=== PATIENT | female | born 1965 | race Caucasian/White ===

== ENCOUNTER 2016-04-26 19:19 | Emergency (ER) | payer MEDICARE, BC ==
[2016-04-26 19:28] VITALS: BP 113/64; PULSE 61; RESP 18; TEMP 98
--- NOTE | 2016-04-26 20:04 | ED ---
Lower Extremity Injury HPI - General Chief Complaint: Extremity Injury, Lower Stated Complaint: Fall Ankle Time Seen by Provider: 04/26/16 19:59 Source: patient, RN notes reviewed Mode of arrival: ambulatory Limitations: no limitations - History of Present Illness Initial Comments: 50-year-old female presents to the emergency department with a chief complaint of left ankle pain. Patient states that she tripped and fell while walking the dog and she rolled her ankle. Patient states she also pain over the lateral aspect were still bearing weight. Worse the touch. Patient does have chronic nerve issues due to back problems in both feet but states she is feeling this pain and otherwise her sensation is her normal. Patient denies any head injury any lightheadedness or dizziness before the fall. Patient states that she is not currently having any other symptoms at this time.Patient denies any recent fever, chills, shortness of breath, chest pain, back pain, abdominal pain, nausea vomiting, numbness or tingling, dysuria or hematuria, constipation or diarrhea, headaches or visual changes, or any other current symptoms. - Related Data Home Medications Medication Instructions Recorded Confirmed Omeprazole [PriLOSEC] 20 mg PO AC-BRKFST 08/21/13 04/26/16 Meloxicam [Mobic] 7.5 mg PO DAILY 08/23/13 04/26/16 Citalopram Hydrobromide [CeleXA] 40 mg PO HS 05/08/15 04/26/16 Diazepam 10 mg PO TID PRN 05/08/15 04/26/16 Levothyroxine Sodium [Synthroid] 112 mcg PO DAILY 05/08/15 04/26/16 oxyCODONE-APAP 10-325MG [Percocet 1 tab PO TID PRN 05/08/15 04/26/16 10-325 mg] prednisoLONE ACETATE 1% OPHTH 1 drops RIGHT EYE BID 05/08/15 04/26/16 [Pred Forte 1%] Brimonidine Tartrate [Alphagan P 1 drops RIGHT EYE BID 04/26/16 04/26/16 0.1% Ophth Soln] Ergocalciferol (Vitamin D2) 50,000 unit PO TH 04/26/16 04/26/16 [Vitamin D2] Loratadine [Claritin] 10 mg PO DAILY 04/26/16 04/26/16 Nicotine 7Mg/24Hr Patch [Habitrol 1 patch TRANSDERM DAILY 04/26/16 04/26/16 7Mg/24Hr Patch] Verapamil HCl [Verapamil ER] 240 mg PO BID 04/26/16 04/26/16 Allergies Allergy/AdvReac Type Severity Reaction Status Date / Time clindamycin Allergy Rash/Hives Verified 04/26/16 19:53 venom-honey bee Allergy Anaphylaxis Verified 04/26/16 19:53 [bee venom (honey bee)] latex AdvReac Itching Verified 04/26/16 19:53 Review of Systems ROS Statement: Those systems with pertinent positive or pertinent negative responses have been documented in the HPI. ROS Other: All systems not noted in ROS Statement are negative. Past Medical History Past Medical History: GERD/Reflux, Hypertension, Thyroid Disorder Additional Past Medical History / Comment(s): MS diagnosed years ago in another states but now MRI showed no MS History of Any Multi-Drug Resistant Organisms: C-DIFF, None Reported Date of last positivie culture/infection: 2014 MDRO Source:: stool Past Surgical History: Orthopedic Surgery, Tonsillectomy Additional Past Surgical History / Comment(s): neck surgery, cyst removed from wrist, urethral blockage repair, laser eye surgery on right eye twice Past Psychological History: Depression, No Psychological Hx Reported Smoking Status: Never smoker Past Alcohol Use History: Rare Past Drug Use History: Marijuana General Exam - General Exam Comments Initial Comments: General: The patient is awake and alert, in no distress, and does not appear acutely ill. Neck: The neck is supple, there is no tenderness. Cardiovascular: There is a regular rate and rhythm. No murmur, rub or gallop is appreciated. Respiratory: Lungs are clear to auscultation, respirations are non-labored, breath sounds are equal. No wheezes, stridor, rales, or rhonchi. Musculoskeletal: Sensation intact with 2+ pulses. Left flexion me. Full range of motion of left knee and left ankle with swelling over the lateral malleolus. Patient does have tenderness patient over the lateral malleolus. No tenderness to palpation throughout the rest of the left foot. No tenderness to palpation throughout the left hip or maximal knee. Neurological: CN II-XII intact, There are no obvious motor or sensory deficits. Coordination appears grossly intact. Speech is normal. Skin: Skin is warm and dry and no rashes or lesions are noted. Psychiatric: Normal mood and affect. Limitations: no limitations Course Vital Signs 04/26/16 19:26 Temperature 98.0 F Pulse Rate 61 Respiratory 18 Rate Blood Pressure 113/64 O2 Sat by Pulse 97 Oximetry Procedures - Orthopedic Splinting/Casting Injury #1 Side: left Lower Extremity Injury Location: ankle Lower Extremity Immobilizer: posterior splint (short leg) Medical Decision Making - Medical Decision Making 50-year-old female presents to emergency room chief complaint of left ankle pain. This time patient will undergo an x-ray. at this time xray is reviewed. There is concern for acute on chronic avulsion fracture that is with the patient is tender more likely to be chronic however we will splint and have her follow-up with orthopedic for continued evaluation. At this time we discussed splint care we discussed ongoing currently discussed return. Follow-up. Patient states she understood all questions were answered. She'll be discharged. - Radiology Data Radiology results: image reviewed Interpreted by me: Interpreted by me: left ankle xray: 3 view, avulsion fracture left lateral malleolus concern for chronic vs acute, no dislocation, no bony lesions, no foreign bodies, no soft tissue damage. Waiting official radiology read. Disposition Clinical Impression: Closed left ankle fracture Disposition: HOME SELF-CARE Condition: Stable Instructions: Ankle Fracture (ED) Additional Instructions: Please use medication as discussed. Please follow up with family doctor if symptoms have not improved over the next two days. Please return to the emergency room if your symptoms increase or worsen or for any other concerns. Referrals: Valerio George MD [Primary Care Provider] - 1-2 days Tre Pineda MD [STAFF PHYSICIAN] - 1-2 days Time of Disposition: 20:17
--- NOTE | 2016-04-26 21:00 | XR ---
EXAMINATION TYPE: XR ankle complete LT DATE OF EXAM: 04/26/2016 8:11 PM COMPARISON: October 26, 2015 HISTORY: Lateral ankle pain is after fall TECHNIQUE: 3 views FINDINGS: There is a nonunited transverse linear lucency at the distal tip of the fibula, appearing s imilar to the prior study. There is prominent lateral soft tissue swelling on the present study, with out acute fracture evident. The mortise is intact. IMPRESSION: Soft tissue swelling laterally.
== END 2016-04-26 20:32 | disposition home or self-care (01) ==
LOC: EC 19:19
DX: S82.892A Other fracture of left lower leg, initial encounter for closed fracture (principal); W01.0XXA Fall on same level from slipping, tripping and stumbling without subsequent striking against object, initial encounter; Y93.K1 Activity, walking an animal; E07.9 Disorder of thyroid, unspecified; I10 Essential (primary) hypertension; K21.9 Gastro-esophageal reflux disease without esophagitis; Z79.899 Other long term (current) drug therapy; Z88.1 Allergy status to other antibiotic agents; Z91.040 Latex allergy status
CPT/HCPCS: 29515; 99284

== ENCOUNTER → 2016-06-18 | Outpatient (CLI) | payer BC, MEDICARE ==
[2016-06-18 12:30] LABS: Basophils # (A) 0.1 k/uL (0-0.2); Basophils % (A) 1 %; CH 31.8; CHCM 32.4; Eosinophils # (A) 0.3 k/uL (0-0.7); Eosinophils % (A) 6 %; HDW 2.23; HGB 11.6 gm/dL (11.4-16.0); Luc # (Auto) 0.15; Luc % (Auto) 3; Lymphocytes # (A) 1.2 k/uL (1.0-4.8); Lymphocytes % (A) 22 %; MCH 31.8 pg (25.0-35.0); MCHC 32.3 g/dL (31.0-37.0); MCV 98.5 fL (80.0-100.0); Mean Platelet Volume 7.4; Monocytes # (A) 0.3 k/uL (0-1.0); Monocytes % (A) 5 %; Neutrophils # (A) 3.7 k/uL (1.3-7.7); Neutrophils % (A) 64 %; RBC 3.65 m/uL (3.80-5.40); WBC 5.7 k/uL (3.8-10.6); WBC (Perox) 5.81
--- NOTE | 2016-06-18 12:33 | XR ---
EXAMINATION TYPE: XR chest 2V DATE OF EXAM: 06/18/2016 11:34 AM COMPARISON: 01/28/2016 HISTORY: 50 year-old female pre-op for lower back surgery TECHNIQUE: Frontal and lateral views FINDINGS: The cardiomediastinal silhouette, aorta, and pulmonary vasculature are within normal limits. Mild int erstitial prominence is unchanged. No consolidation or pleural effusion. Partially visualized ACDF flores rdware. IMPRESSION: Chronic changes without acute cardiopulmonary process.
[2016-06-18 12:52] LABS: Prothrombin Time 9.8 sec (9.0-12.0)
[2016-06-18 13:04] LABS: ALT 55 U/L (9-52); AST 75 U/L (14-36); Alkaline Phosphatase 162 U/L (38-126); Anion Gap 11 mmol/L; Blood Urea Nitrogen 18 mg/dL (7-17); Calcium 9.5 mg/dL (8.4-10.2); Carbon Dioxide 27 mmol/L (22-30); Chloride 106 mmol/L (98-107); Glucose 122 mg/dL (74-99); Non-African American GFR(MDRD) 58 (>60 ml/min/1.73 sqM); Sodium 144 mmol/L (137-145); Total Bilirubin 0.3 mg/dL (0.2-1.3); Total Protein 7.4 g/dL (6.3-8.2)
== END ==
LOC: RADXRMAIN 11:21
PROVIDERS: ATTEND Internal Medicine
DX: Z01.818 Encounter for other preprocedural examination (principal); M51.36 Other intervertebral disc degeneration, lumbar region; R91.8 Other nonspecific abnormal finding of lung field; J44.0 Chronic obstructive pulmonary disease with (acute) lower respiratory infection
CPT/HCPCS: 36415; 71020; 80053; 85025; 85610

== ENCOUNTER → 2016-07-21 | Outpatient (CLI) | payer MEDICARE, BC | LOC: LABWHC1 14:50 | PROVIDERS: ATTEND Neurological Surgery | DX: Z53.9 Procedure and treatment not carried out, unspecified reason (principal) ==

== ENCOUNTER → 2016-09-29 | Outpatient (CLI) | payer BC, MEDICARE ==
--- NOTE | 2016-09-29 11:27 | XR ---
EXAMINATION TYPE: XR chest 2V DATE OF EXAM: 09/29/2016 HISTORY: M51.36 Lumbar DDD. REFERENCE: Previous study dated 06/18/2016. FINDINGS: There has been a previous ACDF in the lower cervical spine. The lungs are clear. Pleural spaces are clear. Heart size is normal. IMPRESSION: NO ACUTE INTRATHORACIC ABNORMALITY.
== END | disposition home or self-care (01) ==
LOC: RADXRMAIN 10:47
PROVIDERS: ATTEND Neurological Surgery
DX: Z01.818 Encounter for other preprocedural examination (principal); M51.36 Other intervertebral disc degeneration, lumbar region
CPT/HCPCS: 71020; 93005

== ENCOUNTER → 2017-04-22 | Outpatient (CLI) | payer BC ==
--- NOTE | 2017-04-22 12:55 | CT ---
EXAMINATION TYPE: CT cervical spine wo con DATE OF EXAM: 04/22/2017 COMPARISON: MRI of the cervical spine dated 08/13/2015 HISTORY: cervical myelopathy CT DLP: 462.9 mGycm. Automated Exposure Control for Dose Reduction was Utilized. TECHNIQUE: CT scan of the cervical spine is obtained without contrast, axial images are obtained, sa gittal and coronal reformatted images are also reviewed. FINDINGS: There is grade 2 anterolisthesis of C6 on C7 with an acute kyphosis redemonstrated and endp late sclerosis. Anterior cervical fusion bridges the C5-T1 vertebral bodies. Surgical decompression w ith posterior element resection from C4 through approximately C6. Uncovertebral hypertrophy and facet arthropathy are seen throughout the cervical spine. C2-C3: No significant neural foraminal stenosis spinal or spinal canal stenosis despite uncovertebral hypertrophy and facet arthropathy. C3-C4: There is severe uncovertebral hypertrophy and facet arthropathy creating severe left neural fo raminal narrowing and to a lesser degree on the right creating moderate right neural foraminal narrow ing. No spinal canal stenosis as a posterior elements are absent. C4-C5: Similarly to C3-C4 there is severe left neural foraminal narrowing and moderate right neural f oraminal narrowing from uncovertebral hypertrophy and facet arthropathy. No spinal canal stenosis sec ondary to decompression and posterior element absence. C5-C6: Severe left and moderate right neural foraminal narrowing are present secondary to uncovertebr al hypertrophy and facet arthropathy. Surgical decompression of the posterior elements is present and therefore there is no spinal canal stenosis. C6-C7: Again the acute kyphosis in grade 2 anterolisthesis are seen widening the spinal canal and in anterior posterior dimension. Bilateral moderate neural foraminal narrowing are present as a result o f uncovertebral hypertrophy and facet arthropathy. Incidentally noted are bilateral scattered areas of peribronchial cuffing. Minimal left apical parase ptal emphysematous changes are also noted. IMPRESSION: 1. Postsurgical changes of the cervical spine with redemonstration of an acute kyphosis at C6-C7 with grade 2 anterolisthesis. 2. Multilevel extensive facet arthropathy and uncovertebral hypertrophy creating multilevel severe le ft and moderate right neural foraminal stenosis as described above. No significant spinal canal steno sis secondary to the decompression and removal of the posterior elements. 3. Scattered areas of peribronchial cuffing within the lung apices and paraseptal emphysematous lu es. Peribronchial cuffing could relate to small airway reactive disease of infectious or inflammatory etiology.
--- NOTE | 2017-04-22 14:07 | CT ---
EXAMINATION TYPE: CT lumbar spine wo con DATE OF EXAM: 04/22/2017 12:25 PM COMPARISON: 08/27/2013 and prior MR dated 08/13/2015. HISTORY: stenosis CT DLP: 1347.8 mGycm Automated exposure control for dose reduction was used. Unenhanced CT of the lumbar spine was performed. Bone and soft tissue window settings are submitted as well as coronal and sagittal reconstructions. Postsurgical anterior fusion and intervertebral disc cages extending from L3 through S1. There is gra de 1 anterolisthesis of L5 on S1. Lumbar vertebral bodies maintain normal vertebral body heights. The re is a mild levoscoliotic curvature at L3-L4. No suspicious osseous lesions. There is also redemonst ration of mild retrolisthesis of L3 with respect to L4. L1-L2: Normal disc space height. No disc herniation protrusion or central stenosis. No facet joint arthropathy. No evidence for foraminal encroachment. L2-L3: There is a small broad-based disc bulge resulting in mild bilateral neural foraminal narrowing . No focal disc herniation. Minimal ligamentum flavum buckling. No significant spinal canal stenosis. L3-L4: There is right greater than left facet arthropathy and a broad-based disc bulge resulting in s evere right and moderate left neural foraminal narrowing. Ligamentum flavum buckling contributes to m ild spinal canal stenosis. L4-L5: Right greater than left facet arthropathy creates severe right neural foraminal narrowing and moderate left neural foraminal narrowing. Broad-based disc bulge and ligamentum flavum buckling contr ibute to mild spinal canal stenosis. The known small disc protrusion is not well-demonstrated on CT. L5-S1: There is grade 1 anterolisthesis of L5 with respect to S1 with disc uncovering. Bilateral mode rate facet arthropathy creates severe bilateral neural foraminal narrowing in combination with a broa d-based disc bulge. The no small disc protrusion is not well-demonstrated on CT. IMPRESSION: 1. Known small disc protrusions at L4-L5 and L5-S1 seen on the prior MR. 2. Multilevel facet arthropathy creating severe neural foraminal narrowing on the right and moderate on the left at L3-L5 as well as severe bilateral neural foraminal narrowing at L5-S1. Variable disc o ther level neural foraminal stenosis are described above. 3. Mild spinal canal stenosis at L3-L5. 4. Postsurgical changes from L3 through S1. Redemonstration of mild levoscoliotic curvature of L3-L4. 5. Mild anterolisthesis (grade 1) of L5 on S1 and redemonstration mild retrolisthesis of L3 with resp ect to L4, unchanged from the prior.
== END | disposition home or self-care (01) ==
LOC: RADCTMAIN 11:55
PROVIDERS: ATTEND Neurological Surgery
DX: M99.71 Connective tissue and disc stenosis of intervertebral foramina of cervical region (principal); M51.27 Other intervertebral disc displacement, lumbosacral region; M43.12 Spondylolisthesis, cervical region; M46.92 Unspecified inflammatory spondylopathy, cervical region; M48.061 Spinal stenosis, lumbar region without neurogenic claudication; M99.73 Connective tissue and disc stenosis of intervertebral foramina of lumbar region; M99.74 Connective tissue and disc stenosis of intervertebral foramina of sacral region; M43.17 Spondylolisthesis, lumbosacral region; M46.96 Unspecified inflammatory spondylopathy, lumbar region; M41.9 Scoliosis, unspecified; Z98.890 Other specified postprocedural states
CPT/HCPCS: 72125; 72131

== ENCOUNTER → 2017-05-26 | Outpatient (CLI) | payer BC ==
--- NOTE | 2017-05-26 17:31 | XR ---
EXAMINATION TYPE: XR foot complete RT DATE OF EXAM: 05/26/2017 COMPARISON: NONE HISTORY: Right foot pain TECHNIQUE: 3 views FINDINGS: There is deformity of the distal fifth metatarsal consistent with old healed fracture. I se e no acute fracture nor dislocation. There is mild multiple hammertoe deformity. There are no erosion s. IMPRESSION: Hammertoe deformity. No acute fracture seen..
--- NOTE | 2017-05-26 17:33 | XR ---
EXAMINATION TYPE: XR ankle complete RT DATE OF EXAM: 05/26/2017 COMPARISON: NONE HISTORY: Foot pain and ankle pain TECHNIQUE: 3 views FINDINGS: Ankle mortise is anatomic. I see no fracture nor dislocation. There are no erosions. There is mild spurring of the anterior and posterior malleolus. IMPRESSION: Mild spurring. No fracture seen.
== END | disposition home or self-care (01) ==
LOC: RADXRMAIN 16:32
PROVIDERS: ATTEND Internal Medicine
DX: M20.41 Other hammer toe(s) (acquired), right foot (principal); M25.771 Osteophyte, right ankle

== ENCOUNTER → 2017-05-27 | Outpatient (CLI) | payer BC ==
--- NOTE | 2017-05-28 07:31 | ECHOF ---
Referral Reason:R01.1 Heart [facility]mer MEASUREMENTS -------- HEIGHT: 162.6 cm WEIGHT: 68.0 kg BP: 138/77 RVIDd: 3.1 cm (< 3.3) IVSd: 0.9 cm (0.6 - 1.1) LVIDd: 4.5 cm (3.9 - 5.3) LVPWd: 0.9 cm (0.6 - 1.1) IVSs: 1.4 cm LVIDs: 3.1 cm LVPWs: 1.4 cm LA Diam: 3.6 cm (2.7 - 3.8) LAESV Index (A-L): 28.70 ml/m Ao Diam: 2.7 cm (2.0 - 3.7) AV Cusp: 1.7 cm (1.5 - 2.6) MV EXCURSION: 16.074 mm (> 18.000) MV EF SLOPE: 102 mm/s (70 - 150) EPSS: 0.8 cm MV E Sven: 1.03 m/s MV DecT: 207 ms MV A Sven: 0.81 m/s MV E/A Ratio: 1.26 AV maxP.61 mmHg AV meanP.29 mmHg RAP: 5.00 mmHg RVSP: 29.16 mmHg FINDINGS -------- Sinus rhythm. This was a technically good study. The left ventricular size is normal. Left ventricular wall thickness is normal. Overall left vent ricular systolic function is low-normal with, an EF between 50 - 55 %. The right ventricle is normal in size. LA is midly dilated 29-33ml/m2. The right atrium is normal in size. There is mild aortic valve sclerosis. There is mild aortic stenosis present. Peak/mean gradient a cross the Aortic Valve is 15.61mmHg / 7.29mmHg. The mitral valve leaflets are mildly thickened. Mild mitral annular calcification present. Mild tricuspid regurgitation present. Right ventricular systolic pressure is normal at < 35 mmHg. The right ventricular systolic pressure, as measured by Doppler, is 29.16mmHg. The pulmonic valve was not well visualized. The aortic root size is normal. Normal inferior vena cava with normal inspiratory collapse consistent with estimated right atrial pre ssure of 5 mmHg. There is no pericardial effusion. CONCLUSIONS -------- 1. Sinus rhythm. 2. This was a technically good study. 3. The left ventricular size is normal. 4. Left ventricular wall thickness is normal. 5. Overall left ventricular systolic function is low-normal with, an EF between 50 - 55 %. 6. The right ventricle is normal in size. 7. LA is midly dilated 29-33ml/m2. 8. The right atrium is normal in size. 9. There is mild aortic valve sclerosis. 10. There is mild aortic stenosis present. 11. Peak/mean gradient across the Aortic Valve is 15.61mmHg / 7.29mmHg. 12. The mitral valve leaflets are mildly thickened. 13. Mild mitral annular calcification present. 14. Mild tricuspid regurgitation present. 15. Right ventricular systolic pressure is normal at < 35 mmHg. 16. The right ventricular systolic pressure, as measured by Doppler, is 29.16mmHg. 17. The pulmonic valve was not well visualized. 18. The aortic root size is normal. 19. Normal inferior vena cava with normal inspiratory collapse consistent with estimated right atrial pressure of 5 mmHg. 20. There is no pericardial effusion. [employer]: Mona James RDCS
== END | disposition home or self-care (01) ==
LOC: RADECHMAIN 13:10
PROVIDERS: ATTEND Internal Medicine Pulmonary Disease
DX: I35.0 Nonrheumatic aortic (valve) stenosis (principal); I07.1 Rheumatic tricuspid insufficiency; I35.8 Other nonrheumatic aortic valve disorders; I34.8 Other nonrheumatic mitral valve disorders
CPT/HCPCS: 93306

== ENCOUNTER → 2017-10-12 | Outpatient (CLI) | payer BC ==
[2017-10-12 08:12] LABS: Basophils % (A) 1 %; Eosinophils # (A) 0.3 k/uL (0-0.7); Eosinophils % (A) 5 %; HCT 32.2 % (34.0-46.0); HGB 10.7 gm/dL (11.4-16.0); Lymphocytes # (A) 1.6 k/uL (1.0-4.8); Lymphocytes % (A) 31 %; MCH 32.4 pg (25.0-35.0); MCHC 33.1 g/dL (31.0-37.0); MCV 97.8 fL (80.0-100.0); Mean Platelet Volume 7.1; Monocytes # (A) 0.3 k/uL (0-1.0); Monocytes % (A) 5 %; Neutrophils % (A) 57 %; Platelet Count 285 k/uL (150-450); RBC 3.29 m/uL (3.80-5.40); RDW 13.5 % (11.5-15.5); WBC 5.3 k/uL (3.8-10.6)
[2017-10-12 10:08] LABS: ALT 31 U/L (9-52); AST 28 U/L (14-36); Albumin 4.1 g/dL (3.5-5.0); Alkaline Phosphatase 99 U/L (38-126); Anion Gap 8 mmol/L; Blood Urea Nitrogen 24 mg/dL (7-17); Calcium 9.5 mg/dL (8.4-10.2); Carbon Dioxide 25 mmol/L (22-30); Chloride 107 mmol/L (98-107); Cholesterol 169 mg/dL (<200); Glucose 87 mg/dL (74-99); HDL Cholesterol 86 mg/dL (40-60); LDL Cholesterol,Calculated 59 mg/dL (0-99); Sodium 140 mmol/L (137-145); Total Bilirubin <0.1 mg/dL (0.2-1.3); Total Protein 6.6 g/dL (6.3-8.2); Triglycerides 122 mg/dL (<150)
== END | disposition home or self-care (01) ==
LOC: LABWHC1 07:42
PROVIDERS: ATTEND Internal Medicine
DX: I10 Essential (primary) hypertension (principal); E78.5 Hyperlipidemia, unspecified
CPT/HCPCS: 36415; 80053; 80061; 85025

== ENCOUNTER → 2018-01-24 | Outpatient (CLI) | payer BC ==
--- NOTE | 2018-01-24 13:12 | CT ---
EXAMINATION TYPE: CT abdomen w con DATE OF EXAM: 01/24/2018 COMPARISON: NONE HISTORY: 52-year-old female abnormal liver function test. TECHNIQUE: Contiguous axial scanning of the abdomen following administration of 100 ml Isovue 300 IV contrast. Delayed images through the kidneys and coronal/sagittal reconstructions performed. CT DLP: 749 mGycm Automated exposure control for dose reduction was used. FINDINGS: Heart normal size without pericardial effusion. Lung bases clear without pleural effusion. There is mild to moderate hepatic biliary ductal dilatation and additional dilatation of the bile familia t 1.1 cm. No obvious obstructing mass is identified though the pancreas is diffusely atrophic. Gallbladder upper limits of normal in in size at 3.7 cm wide. Small amount of focal fat along the ant erior falciform ligament. Adrenal glands, right kidney, and spleen appear within normal limits. Subcentimeter hypodensity anterior lower pole left kidney too small for accurate CT characterization, likely a tiny cyst. No dilated small bowel, free fluid, or free air. No mesenteric or retroperitoneal lymphadenopathy. Moderate stool burden. No pericolonic inflammatory change seen within the upper abdomen. Multiple surgical clips are present along the left retroperitoneum. No mesenteric or retroperitoneal lymphadenopathy seen. Anterior lumbar fusion changes from L2 through S1 levels. IMPRESSION: 1. MILD TO MODERATE INTRAHEPATIC AND EXTRAHEPATIC BILIARY DUCTAL DILATATION. NO OBVIOUS OBSTRUCTING M ASS IS SEEN. HOWEVER, THE GALLBLADDER IS BORDERLINE DISTENDED AND THERE IS ALSO MILD DIFFUSE ATROPHY OF THE PANCREAS. CORRELATE WITH ALKALINE PHOSPHATASE AND BILIRUBIN LEVELS TO EXCLUDE BILIARY OBSTRUCT ION. CONSIDER ERCP VERSUS CONTRAST ENHANCED MRI WITH MRCP TO FURTHER EVALUATE. CORRELATE WITH PANCREA TIC/BILIARY TUMOR MARKERS IN THE INTERVAL A REASSURING MEASURE. 2. MODERATE STOOL BURDEN.
== END ==
LOC: RADCTMAIN 10:03
PROVIDERS: ATTEND Internal Medicine Hematology & Oncology
DX: K83.8 Other specified diseases of biliary tract (principal); K82.8 Other specified diseases of gallbladder; K86.89 Other specified diseases of pancreas
CPT/HCPCS: 82565; 84520; 74160; 36415; Q9967

== ENCOUNTER 2018-01-27 18:08 | Emergency (ER) | payer BC ==
[2018-01-27 18:23] VITALS: RESP 18
[2018-01-27] MEDS ORDERED: DIPH,PERTUS(ACELL)TETVAC-LF 0.5 ML VIAL IM ONE (18:38)
--- NOTE | 2018-01-27 18:40 | ED ---
Animal Bite HPI - General Chief Complaint: Animal Bite Stated Complaint: L Hand injury Time Seen by Provider: 01/27/18 18:26 Source: patient Mode of arrival: ambulatory Limitations: no limitations - History of Present Illness Initial Comments: This a 52-year-old female past medical history of HTN, Behcets and MS presenting today for cc of dog bite to the L hand. Pt states that just prior to arrival she was trying to break up a fight between her dog and another when she was bit by her dog in the left hand. She states that she saw her dog bite it. Her dog is fully vaccinated with updated rabies. Pt presented after applying pressure for possible closure. Pt tetanus not up to date. Pt denies any decreased ROM, numbness, tingling, loss of sensation or muscle weakness of the left ear. Remainder of ROS (-) patient denies any recent fever, chills, shortness of breath, chest pain, back pain, abdominal pain, nausea or vomiting, numbness or tingling, dysuria or hematuria, constipation or diarrhea, headaches or visual changes, or any other complaints. Upon arrival pt VS within acceptable limits, no active bleeding. - Related Data Home Medications Medication Instructions Recorded Confirmed Omeprazole [PriLOSEC] 20 mg PO AC-BRKFST 08/21/13 04/26/16 Meloxicam [Mobic] 7.5 mg PO DAILY 08/23/13 04/26/16 Citalopram Hydrobromide [CeleXA] 40 mg PO HS 05/08/15 04/26/16 Diazepam 10 mg PO TID PRN 05/08/15 04/26/16 Levothyroxine Sodium [Synthroid] 112 mcg PO DAILY 05/08/15 04/26/16 oxyCODONE-APAP 10-325MG [Percocet 1 tab PO TID PRN 05/08/15 04/26/16 10-325 mg] prednisoLONE ACETATE 1% OPHTH 1 drops RIGHT EYE BID 05/08/15 04/26/16 [Pred Forte 1%] Brimonidine Tartrate [Alphagan P 1 drops RIGHT EYE BID 04/26/16 04/26/16 0.1% Ophth Soln] Ergocalciferol (Vitamin D2) 50,000 unit PO TH 04/26/16 04/26/16 [Vitamin D2] Loratadine [Claritin] 10 mg PO DAILY 04/26/16 04/26/16 Nicotine 7Mg/24Hr Patch [Habitrol 1 patch TRANSDERM DAILY 04/26/16 04/26/16 7Mg/24Hr Patch] Verapamil HCl [Verapamil ER] 240 mg PO BID 04/26/16 04/26/16 Previous Rx's Medication Instructions Recorded Amoxicillin/Potassium Clav 1 tab PO Q12HR 7 Days #14 tab 01/27/18 [Augmentin 875-125 Tablet] Allergies Allergy/AdvReac Type Severity Reaction Status Date / Time clindamycin Allergy Rash/Hives Verified 01/27/18 18:24 venom-honey bee Allergy Anaphylaxis Verified 01/27/18 18:24 [bee venom (honey bee)] latex AdvReac Itching Verified 01/27/18 18:24 Review of Systems ROS Statement: Those systems with pertinent positive or pertinent negative responses have been documented in the HPI. ROS Other: All systems not noted in ROS Statement are negative. Constitutional: Denies: fever, chills Eyes: Denies: eye pain ENT: Denies: ear pain, throat pain Respiratory: Denies: cough, dyspnea, wheezes, hemoptysis, stridor Cardiovascular: Denies: chest pain, palpitations Endocrine: Denies: fatigue Gastrointestinal: Denies: abdominal pain, nausea, vomiting, diarrhea, constipation, hematemesis Genitourinary: Denies: urgency, dysuria, frequency, hematuria Musculoskeletal: Denies: back pain Skin: Reports: as per HPI Neurological: Denies: headache, weakness, numbness, paresthesias, confusion Past Medical History Past Medical History: GERD/Reflux, Hypertension, Thyroid Disorder Additional Past Medical History / Comment(s): MS diagnosed years ago in another states but now MRI showed no MS History of Any Multi-Drug Resistant Organisms: C-DIFF Date of last positivie culture/infection: 2014 MDRO Source:: stool Past Surgical History: Orthopedic Surgery, Tonsillectomy Additional Past Surgical History / Comment(s): neck surgery, cyst removed from wrist, urethral blockage repair, laser eye surgery on right eye twice Past Psychological History: Anxiety, Depression Smoking Status: Current every day smoker Past Alcohol Use History: Rare Past Drug Use History: Marijuana General Exam - General Exam Comments Initial Comments: General: The patient is awake and alert, in no distress, and does not appear acutely ill. Eye: Pupils are equal, round and reactive to light, extra-ocular movements are intact. No nystagmus. There is normal conjunctiva bilaterally. No signs of icterus. Cardiovascular: There is a regular rate and rhythm. No murmur, rub or gallop is appreciated. Respiratory: Lungs are clear to auscultation, respirations are non-labored, breath sounds are equal. No wheezes, stridor, rales, or rhonchi. Musculoskeletal: Normal ROM at the MCP, DIP and PIP joints of all 5 digits of the hand b/l, no tenderness. Strength 5/5. Sensation intact of the UE equally b /l. Radial pulses equal bilaterally 2+. Capillary refill <2 seconds. Neurological: A&O x 3. CN II-XII intact, There are no obvious motor or sensory deficits. Coordination appears grossly intact. Speech is normal. Skin: Skin is warm and dry and no rashes. 1 cm laceration on martinez surface of left hand between thumb and index finger. No active bleeding or exposure of underlying structures appears superficial. Psychiatric: Cooperative, appropriate mood & affect, normal judgment. Limitations: no limitations Course Vital Signs 01/27/18 01/27/18 18:21 19:53 Temperature 98.3 F 98.9 F Pulse Rate 83 74 Respiratory 18 18 Rate Blood Pressure 138/73 120/80 O2 Sat by Pulse 97 99 Oximetry Medical Decision Making - Medical Decision Making Wound irrigated and cleansed with iodine solution. TDaP updated. Pt given RX for augmentin for infection ppx. There are no signs or symptoms of tendon injury at this time, PE unremarkable. Bacitracin and sterile bandage placed over wound. Secondary closure and dog bites discussed with pt. Pt agreed with plan. Case discussed with Dr. Vergara who agrees with impression and plan. Pt was instructed to schedule appointment for wound check with PCP in next 1-2 days. Return parameters discussed patient, as well as the risks infection. Disposition Clinical Impression: Dog bite of left hand Disposition: HOME SELF-CARE Condition: Good Instructions: Animal Bite (ED) Additional Instructions: Please use medication as discussed. Please follow-up with family doctor in the next 2 days for wound check. Please return to emergency room if the symptoms increase or worsen or for any other concerns. Prescriptions: Amoxicillin/Potassium Clav [Augmentin 875-125 Tablet] 1 tab PO Q12HR 7 Days #14 tab Is patient prescribed a controlled substance at d/c from ED?: No Referrals: Valerio George MD [Primary Care Provider] - 1-2 days Time of Disposition: 18:39
[2018-01-27 19:54] VITALS: BP 120/80; PULSE 74; TEMP 98.9
== END 2018-01-27 19:53 | disposition home or self-care (01) ==
LOC: EC 18:08
DX: S61.452A Open bite of left hand, initial encounter (principal); Z23 Encounter for immunization; K21.9 Gastro-esophageal reflux disease without esophagitis; I10 Essential (primary) hypertension; F41.9 Anxiety disorder, unspecified; F32.9 Major depressive disorder, single episode, unspecified; F17.200 Nicotine dependence, unspecified, uncomplicated; Z79.1 Long term (current) use of non-steroidal anti-inflammatories (NSAID); Z79.899 Other long term (current) drug therapy; Z88.1 Allergy status to other antibiotic agents; Z91.040 Latex allergy status; Z91.030 Bee allergy status; W54.0XXA Bitten by dog, initial encounter
CPT/HCPCS: 90471; 90715; 99283

== ENCOUNTER 2018-08-24 09:38 | Emergency (ER) | payer MEDICARE, BC ==
[2018-08-24 09:52] VITALS: BP 122/78; PULSE 68; RESP 18; TEMP 97.6
[2018-08-24] MEDS ORDERED: CEPHALEXIN 500MG STARTER PACK 4 CAP BTL PO STA (09:58)
--- NOTE | 2018-08-24 10:11 | ED ---
Skin/Abscess/FB HPI - General Chief complaint: Skin/Abscess/Foreign Body Stated complaint: poss infection on toe Time Seen by Provider: 08/24/18 09:54 Source: patient Mode of arrival: ambulatory Limitations: no limitations - History of Present Illness Initial comments: 52-year-old female presenting today for chief complaint of right great toe pain and redness. Patient states there is a small blister adjacent to the cuticle of her right great toe. She states there appears to be blood and pus in the blister. She is concerned for infection. Patient states she has an appointment with podiatry next week however she noticed some mild surrounding redness and was concerned that the infection was spreading and presented for evaluation. Patient denies any current antibiotic use. Patient denies any coolness pallor numbness tingling of the toe. Remaining review of systems negative, patient denies any recent fever, chills, shortness of breath, chest pain, back pain, abdominal pain, nausea or vomiting, numbness or tingling, dysuria or hematuria, constipation or diarrhea, headaches or visual changes, or any other complaints. - Related Data Home Medications Medication Instructions Recorded Confirmed Meloxicam [Mobic] 7.5 mg PO DAILY 08/23/13 08/24/18 Diazepam 10 mg PO TID PRN 05/08/15 08/24/18 Levothyroxine Sodium [Synthroid] 112 mcg PO DAILY 05/08/15 08/24/18 oxyCODONE-APAP 10-325MG [Percocet 1 tab PO TID PRN 05/08/15 08/24/18 10-325 mg] Loratadine [Claritin] 10 mg PO DAILY 04/26/16 08/24/18 Verapamil HCl [Verapamil ER] 240 mg PO BID 04/26/16 08/24/18 Citalopram Hydrobromide 40 mg PO HS 08/24/18 08/24/18 [Citalopram HBr] Previous Rx's Medication Instructions Recorded Cephalexin [Keflex] 500 mg PO Q6HR 7 Days #28 cap 08/24/18 Allergies Allergy/AdvReac Type Severity Reaction Status Date / Time clindamycin Allergy Rash/Hives Verified 08/24/18 10:35 venom-honey bee Allergy Anaphylaxis Verified 08/24/18 10:35 [bee venom (honey bee)] latex AdvReac Itching Verified 08/24/18 10:35 Review of Systems ROS Statement: Those systems with pertinent positive or pertinent negative responses have been documented in the HPI. ROS Other: All systems not noted in ROS Statement are negative. Past Medical History Past Medical History: GERD/Reflux, Hypertension, Thyroid Disorder Additional Past Medical History / Comment(s): MS diagnosed years ago in another states but now MRI showed no MS History of Any Multi-Drug Resistant Organisms: C-DIFF Date of last positivie culture/infection: 2014 MDRO Source:: stool Past Surgical History: Orthopedic Surgery, Tonsillectomy Additional Past Surgical History / Comment(s): neck surgery, cyst removed from wrist, urethral blockage repair, laser eye surgery on right eye twice Past Psychological History: Anxiety, Depression Smoking Status: Current every day smoker Past Alcohol Use History: Rare Past Drug Use History: Marijuana General Exam - General Exam Comments Initial Comments: General: The patient is awake and alert, in no distress, and does not appear acutely ill. Eye: Pupils are equal, round and reactive to light, extra-ocular movements are intact. No nystagmus. There is normal conjunctiva bilaterally. No signs of icterus. Cardiovascular: There is a regular rate and rhythm. No murmur, rub or gallop is appreciated. Respiratory: Lungs are clear to auscultation, respirations are non-labored, breath sounds are equal. No wheezes, stridor, rales, or rhonchi. Musculoskeletal: Normal ROM, no tenderness. Strength 5/5. Sensation intact. DP pulses equal bilaterally 2+. Neurological: A&O x 3. CN II-XII intact, There are no obvious motor or sensory deficits. Coordination appears grossly intact. Speech is normal. Skin: Skin is warm and dry and no rashes. Paronychia of the right great toe. There is a blister filled with blood and purulent drainage adjacent to lateral aspect of cuticle. tender to palpation mild surrounding erythema. Sensation intact both proximal distal to injury site. Capillary refill <3 seconds on the right great toe. Psychiatric: Cooperative, appropriate mood & affect, normal judgment. Limitations: no limitations Course Vital Signs 08/24/18 09:50 Temperature 97.6 F Pulse Rate 68 Respiratory 18 Rate Blood Pressure 122/78 O2 Sat by Pulse 99 Oximetry Procedures - Incision & Drainage Consent Obtained: verbal consent Site: other (right great toe) I&D Cleaning Method: Iodine Sterile Field Used?: No Scalpel Used: #11 Patient Tolerated Procedure: well, no complications Medical Decision Making - Medical Decision Making 32 or female presenting for right great toe pain. Paronychia on examination with mild cellulities. I &D was performed. Very mild surrounding cellulitis. Patient denies history of MRSA. Patient denies any peripheral artery vascular disease. She is a nonsmoker and denies diabetes. Patient be started on Keflex with podiatry follow-up next week as scheduled. Patient is to follow-up with primary care provider in 2 days. Return parameters including immediate return for worsening and spreading of the redness was discussed the patient who ve rbalized understanding. Patient was discharged. Will after discussing case with attending provider Dr. Nielsen Disposition Clinical Impression: Acute paronychia of toe of right foot Disposition: HOME SELF-CARE Condition: Good Instructions (If sedation given, give patient instructions): Paronychia (ED) Additional Instructions: Please use medication as discussed. Please follow-up with family doctor in the next 2 days. Please follow-up with podiatry next week as scheduled. Please return to emergency room if the symptoms increase or worsen or for any other concerns, including spread of erythema. Prescriptions: Cephalexin [Keflex] 500 mg PO Q6HR 7 Days #28 cap Is patient prescribed a controlled substance at d/c from ED?: No Referrals: Valerio George MD [Primary Care Provider] - 1-2 days Time of Disposition: 10:11
== END 2018-08-24 10:37 | disposition home or self-care (01) ==
LOC: EC 09:38
DX: L03.031 Cellulitis of right toe (principal); I10 Essential (primary) hypertension; E07.9 Disorder of thyroid, unspecified; F41.9 Anxiety disorder, unspecified; F32.9 Major depressive disorder, single episode, unspecified; F17.200 Nicotine dependence, unspecified, uncomplicated; Z79.1 Long term (current) use of non-steroidal anti-inflammatories (NSAID); Z79.890 Hormone replacement therapy; Z79.899 Other long term (current) drug therapy; Z88.1 Allergy status to other antibiotic agents; Z91.030 Bee allergy status; Z91.040 Latex allergy status
CPT/HCPCS: 10060; 99283

== ENCOUNTER → 2018-12-06 | Outpatient (CLI) | payer MEDICARE ==
[2018-12-06 20:39] LABS: Appearance,CSF Clear
[2018-12-06 20:40] LABS: CSF Tube Number 4; CSF Tube Volume 3.5
[2018-12-06 20:52] LABS: Total Protein,CSF 37 mg/dL (12-60)
[2018-12-06 21:45] LABS: Nucleated Cells, CSF 0 u/L (0-5); Red Blood Cell,CSF 0 u/L (0-10)
[2018-12-08 13:20] LABS: IgG - CSF 1.6 mg/dL (0.0 - 3.4); IgG/Albumin Index (CSF) 0.53 (0.00 - 0.77); Immunoglobulin G 829 mg/dL (700 - 1600)
== END | disposition home or self-care (01) ==
LOC: LABWHC1 11:57
PROVIDERS: ATTEND Nurse Practitioner Acute Care
DX: H53.9 Unspecified visual disturbance (principal); R90.89 Other abnormal findings on diagnostic imaging of central nervous system; R42 Dizziness and giddiness
CPT/HCPCS: 36415; 82040; 82042; 82784; 83873; 83916; 84157; 87801; 88108; 89050

== ENCOUNTER → 2019-01-17 | Day surgery (SDC) | payer MEDICARE ==
[2019-01-15 15:53] VITALS: BMI 27.4
[~2019-01-17] MED LIST: BUPIVACAINE (PF) 0.25% 30 ML VIAL MISCELLANE ONE; DEXAMETHASONE SOD PHOSPHATE 10 MG/ML 1 ML VIAL IV ONE; GLYCOPYRROLATE 0.2 MG/ML 2 ML VIAL ONE; HYDROmorphone 0.5 MG/0.5 ML SYRINGE IVP PRN; KETOROLAC 30 MG/ML 1 ML VIAL IVP SCH; LACTATED RINGERS 1,000 ML IV ONE; LACTATED RINGERS 1,000 ML IV SCH; LIDOCAINE 1% 20 ML VIAL (10MG/ML) FOR IV START INTRADERMA ONE; LIDOCAINE 1% 20 ML VIAL (10MG/ML) FOR IV START INTRADERMA PRN; LIDOCAINE 2%-EPI 1:100,000 20 ML VIAL SUBMUCOSAL ONE; METOCLOPRAMIDE 5 MG/ML 2 ML VIAL IVP PRN; MIDAZOLAM 2 MG/2 ML VIAL IV PRN; MIDAZOLAM 2 MG/2 ML VIAL ONE; NEOSTIGMINE 1 MG/ML 10 ML VIAL ONE; ONDANSETRON 4 MG/2 ML VIAL IVP ONE; PROPOFOL 10 MG/ML 20 ML VIAL IV ONE; TERBINAFINE 1% CREAM 15 GM TUBE TOPICAL ONE; ePHEDrine SULFATE/0.9% NACL/PF 50 MG/5 ML SYRINGE IV ONE; fentaNYL (PF) 50 MCG/ML 2 ML AMP ONE
--- NOTE | 2019-01-17 15:47 | P.OP ---
Date of Procedure: 01/17/19 Preoperative Diagnosis: Infected hard ross and gross decay of teeth Postoperative Diagnosis: Same Procedure(s) Performed: Removal of all plates and screws of Right maxillia Removal of all plates and screws of left maxillia Surgical extraction of teeth [id number] Anesthesia: ESTHELA Surgeon: Scotty Tanner Estimated Blood Loss (ml): 5 IV fluids (ml): 900 Urine output (ml): 0 Pathology: none sent Condition: stable Disposition: same day Indications for Procedure: Patient had had obstructive sleep apnea surgery including a LeFort I osteotomy with corresponding mandibular surgery she had been wearing an upper denture for some time and it continually hurt in the maxillary vestibule left and right recently she has had multiple infections of the left maxillary vestibule with current purulent drainage noted. She also has gross decay and nonrestorable teeth on the bottom and desires extraction of these teeth for future lower denture. Patient was seen multiple times in the office in 1 screw had been re moved in the office. The patient is very immobile in her neck and as a result is unable to flex properly in case of emergency intubation. This contributed to her poor airway and her history of sleep apnea made her poor candidate for outpatient IV sedation in office setting. Operative Findings: Patient underwent awake fiberoptic intubation which she tolerated very well in the oral ray tube was placed. See anesthesia record. Description of Procedure: After intubation the patient was then prepped and draped in usual fashion for clean contaminated oral Patient's surgery. Lidocaine was administered in the upper right and left maxilla as well as the lower anterior teeth. A bite block was placed and throat pack was placed on the infected plate was addressed first on the left side with a full-thickness periosteal flap over the areas of the fistulous and of the plate was easily found. The 4 remaining screws were loose and easily removed and then the dissection went up the anterior all of the maxilla appointment in former rim. This dissection was much more difficult with some scar tissue and bone obscuring the plate. The bone was so thick over the plate the drill was required and the 3 remaining screws were visualized. Bone had grown into the slots of the screws making the standard screwdriver inoperable. A slotted screwdriver was then modified and the remaining screws were removed without difficulty. All screws were removed from the mouth and the plate on this side was easily taken out. This was copiously irrigated and closed primarily with 3- 0 chromic suture. The bite block throat pack and intubation tube were then shifted to the left side and the right side was addressed in the maxilla. Full-thickness make breast implant of the right maxillary vestibule similar to the other side was done from piriform rim to posterior to the zygomatic buttress. Dissection was easier on this side due to the lack of infection and that plates and screws were exposed. Some bone had grown over 1 of the superior screws but was able to be removed with minimal drilling. This plate came out easier. No perforations into the sinus were noted. Copious irrigation and primary closure with 3-0 chromic suture was done. And then attention was given to the lower teeth. Full-thickness periosteal flap was laid across the crestal side of all the remaining lower anterior teeth. Some bone was removed and the teeth were removed after luxation and delivered with a lower universal forcep. The sharp bones were then smoothed and primary closure with 3-0 chromic suture was accomplished. Patient then had 5 mL's of quarter percent Marcaine mixed with 5 mL's of 2% lidocaine with epinephrine administered infiltrative fashion both m axilla and anterior mandible and an effort to help control pain. Patient was awakened and extubated taken to the postoperative recovery unit she waits discharge home Plan - Discharge Summary Discharge Rx Participant: No New Discharge Prescriptions: No Action Diazepam 10 mg PO BID Levothyroxine Sodium [Synthroid] 112 mcg PO DAILY Verapamil HCl [Verapamil ER] 240 mg PO BID Citalopram Hydrobromide [Citalopram HBr] 40 mg PO HS Ibuprofen [Motrin] 400 mg PO Q8HR PRN PRN Reason: Pain Ergocalciferol [Vitamin D2] 50,000 unit PO Q7D Prednisolone Acetate/Pf [Prednisolone Acet 1% Eye Drop] 1 drop RIGHT EYE DAILY Brimonidine (Unknown Dose) 0.2 drop RIGHT EYE DAILY Omeprazole [PriLOSEC] 20 mg PO -[facility] Discharge Medication List Diazepam 10 mg PO BID 05/08/15 [History] Levothyroxine Sodium [Synthroid] 112 mcg PO DAILY 05/08/15 [History] Verapamil HCl [Verapamil ER] 240 mg PO BID 04/26/16 [History] Citalopram Hydrobromide [Citalopram HBr] 40 mg PO HS 08/24/18 [History] Brimonidine (Unknown Dose) 0.2 drop RIGHT EYE DAILY 01/15/19 [History] Ergocalciferol [Vitamin D2] 50,000 unit PO Q7D 01/15/19 [History] Ibuprofen [Motrin] 400 mg PO Q8HR PRN 01/15/19 [History] Omeprazole [PriLOSEC] 20 mg PO AC-BRKFST 01/15/19 [History] Prednisolone Acetate/Pf [Prednisolone Acet 1% Eye Drop] 1 drop RIGHT EYE DAILY 01/15/19 [History]
[2019-01-17 15:53] VITALS: RESP 16; TEMP 97.4
[2019-01-17 17:00] VITALS: BP 120/74; PULSE 73
== END ==
LOC: OR 11:49
PROVIDERS: ATTEND Dentist Oral and Maxillofacial Surgery
DX: T85.79XA Infection and inflammatory reaction due to other internal prosthetic devices, implants and grafts, initial encounter (principal); M27.69 Other endosseous dental implant failure; K02.9 Dental caries, unspecified; G47.33 Obstructive sleep apnea (adult) (pediatric); M35.2 Behcet's disease; E07.9 Disorder of thyroid, unspecified; K21.9 Gastro-esophageal reflux disease without esophagitis; Z79.1 Long term (current) use of non-steroidal anti-inflammatories (NSAID); Z79.890 Hormone replacement therapy; Z79.899 Other long term (current) drug therapy; Z88.1 Allergy status to other antibiotic agents; Z88.5 Allergy status to narcotic agent; Z91.040 Latex allergy status; Z98.890 Other specified postprocedural states
CPT/HCPCS: 41899; J2250; J1100; J2710; J2405; J3010; J2704

== ENCOUNTER 2020-07-09 15:08 | Emergency (ER) | payer MEDICARE ==
[2020-07-09 15:24] VITALS: BP 155/94; PULSE 95; RESP 18; TEMP 98.1
[2020-07-09 15:58] LABS: Appearance,Urine Cloudy (Clear); Bacteria,Urine Many /hpf; Bilirubin,Urine Negative (Negative); Blood,Urine Trace (Negative); Color,Urine Yellow; Glucose,Urine (UA) Negative (Negative); Ketones,Urine Negative (Negative); Leukocyte Esterase,Urine Large (Negative); Mucus,Urine Rare /hpf; Nitrite,Urine Negative (Negative); Protein,Urine Trace (Negative); RBC,Urine 5 /hpf (0-5); Specific Gravity,Urine 1.021 (1.001-1.035); Squamous Epithelial Cell,Urine 5 /hpf (0-4); Urobilinogen,Urine <2.0 mg/dL (<2.0); WBC,Urine >182 /hpf (0-5)
[2020-07-09 16:42] LABS: Basophils # (A) 0.1 k/uL (0-0.2); Basophils % (A) 1 %; Eosinophils # (A) 0.3 k/uL (0-0.7); Eosinophils % (A) 4 %; HCT 34.4 % (34.0-46.0); HGB 11.9 gm/dL (11.4-16.0); Lymphocytes # (A) 0.9 k/uL (1.0-4.8); Lymphocytes % (A) 14 %; MCH 32.6 pg (25.0-35.0); MCHC 34.6 g/dL (31.0-37.0); MCV 94.3 fL (80.0-100.0); Mean Platelet Volume 7.2; Monocytes # (A) 0.4 k/uL (0-1.0); Monocytes % (A) 6 %; Neutrophils # (A) 4.7 k/uL (1.3-7.7); Neutrophils % (A) 74 %; Platelet Count 356 k/uL (150-450); RBC 3.65 m/uL (3.80-5.40); RDW 13.1 % (11.5-15.5); WBC 6.4 k/uL (3.8-10.6)
[2020-07-09 16:53] LABS: Potassium 4.1 mmol/L (3.5-5.1); Total Bilirubin 0.4 mg/dL (0.2-1.3)
[2020-07-09] MEDS ORDERED: cefTRIAXone 1,000 MG VIAL (IM USE) IM STA (16:58)
--- NOTE | 2020-07-09 17:09 | ED ---
General Adult HPI - General Chief complaint: Abdominal Pain Stated complaint: UTI for 3 months Source: patient Mode of arrival: ambulatory Limitations: no limitations - History of Present Illness Initial comments: Patient is a 54-year-old female with past medical history of MS, hypertension presents emergency Department with reported dysuria, foul-smelling urine and right-sided flank pain which has been going on for the past 3 months. Patient has attempted to self treat a urinary tract infection at home with cranberry juice however continues to have the symptoms. She denies any fevers or chills. No nausea or vomiting. No history of kidney stones. Denies any abnormal vaginal bleeding or discharge. No changes in her bowel or bladder habits. No concern for such transmitted infections. No other alleviating, precipitating or modifying factors - Related Data Home Medications Medication Instructions Recorded Confirmed Levothyroxine Sodium [Synthroid] 112 mcg PO DAILY 05/08/15 01/17/19 diazePAM [Diazepam] 10 mg PO BID 05/08/15 01/17/19 Verapamil HCl [Verapamil ER] 240 mg PO BID 04/26/16 01/17/19 Citalopram Hydrobromide 40 mg PO HS 08/24/18 01/17/19 [Citalopram HBr] Brimonidine (Unknown Dose) 0.2 drop RIGHT EYE DAILY 01/15/19 01/17/19 Ergocalciferol [Vitamin D2] 50,000 unit PO Q7D 01/15/19 01/17/19 Ibuprofen [Motrin] 400 mg PO Q8HR PRN 01/15/19 01/17/19 Omeprazole [PriLOSEC] 20 mg PO AC-[id number] 01/15/19 01/17/19 Prednisolone Acetate/Pf 1 drop RIGHT EYE DAILY 01/15/19 01/17/19 [Prednisolone Acet 1% Eye Drop] Previous Rx's Medication Instructions Recorded Cephalexin [Keflex] 500 mg PO Q6HR #28 cap 07/09/20 Allergies Allergy/AdvReac Type Severity Reaction Status Date / Time clindamycin Allergy Rash/Hives Verified 07/09/20 15:24 venom-honey bee Allergy Anaphylaxis Verified 07/09/20 15:24 [bee venom (honey bee)] latex AdvReac Itching Verified 07/09/20 15:24 Review of Systems ROS Statement: Those systems with pertinent positive or pertinent negative responses have been documented in the HPI. ROS Other: All systems not noted in ROS Statement are negative. Past Medical History Past Medical History: GERD/Reflux, Hypertension, Sleep Apnea/CPAP/BIPAP, Thyroid Disorder Additional Past Medical History / Comment(s): MS diagnosed [place] ago [place] but now MRI showed no MS, Behcet's disease. Cdiff -2015 History of Any Multi-Drug Resistant Organisms: None Reported Date of last positivie culture/infection: 2014 MDRO Source:: stool Past Surgical History: Back Surgery, Orthopedic Surgery, Tonsillectomy Additional Past Surgical History / Comment(s): neck surgery, cyst removed from wrist, urethral blockage repair, laser eye surgery on right eye twice, screws and plates in upper jaw to sinus area & some in the lower jaw. Back surgery Lum bar area, neck surgery involved removing bones and shortening her neck. Has problems with intubation because of this. Past Anesthesia/Blood Transfusion Reactions: Previous Problems w/ Anesthesia Additional Past Anesthesia/Blood Transfusion Reaction / Comment(s): Neck area surgically shortened and respiratory problems when being intubated. States is very concerned about being intubated because of past respiratory problems. Past Psychological History: Anxiety, Depression Smoking Status: Current every day smoker Past Alcohol Use History: None Reported Past Drug Use History: Marijuana - Past Family History Mother Additional Family Medical History / Comment(s): Patient was adopted and does not know family hx. General Exam Limitations: no limitations Course Vital Signs 07/09/20 15:21 Temperature 98.1 F Pulse Rate 95 Respiratory 18 Rate Blood Pressure 155/94 O2 Sat by Pulse 97 Oximetry Medical Decision Making - Medical Decision Making Upon arrival patient was placed into room 33. A thorough history and physical exam was performed. Laboratory studies are conducted due to the duration the patient's symptoms. Patient is provided a urine sample. Urinalysis does demonstrate greater than 182 white blood cells with many bacteria. Patient is refusing CT at this time. The patient will be treated clinically as a pyelonephritis. Patient given a dose of Rocephin in the emergency department and started on Keflex. Patient instructed to follow up with her primary care doctor for resolution of her symptoms. Return to the emergency room for any new or worsening symptoms. Patient was discharged home in stable condition - Lab Data Result diagrams: 07/09/20 16:32 07/09/20 16:32 Lab Results 07/09/20 07/09/20 07/09/20 Range/Units 15:42 16:32 16:32 WBC 6.4 (3.8-10.6) k/uL RBC 3.65 L (3.80-5.40) m/uL Hgb 11.9 (11.4-16.0) gm/dL Hct 34.4 (34.0-46.0) % MCV 94.3 (80.0-100.0) fL MCH 32.6 (25.0-35.0) pg MCHC 34.6 (31.0-37.0) g/dL RDW 13.1 (11.5-15.5) % Plt Count 356 (150-450) k/uL MPV 7.2 Neutrophils % 74 % Lymphocytes % 14 % Monocytes % 6 % Eosinophils % 4 % Basophils % 1 % Neutrophils # 4.7 (1.3-7.7) k/uL Lymphocytes # 0.9 L (1.0-4.8) k/uL Monocytes # 0.4 (0-1.0) k/uL Eosinophils # 0.3 (0-0.7) k/uL Basophils # 0.1 (0-0.2) k/uL Sodium 137 (137-145) mmol/L Potassium 4.1 (3.5-5.1) mmol/L Chloride 102 (98-107) mmol/L Carbon Dioxide 25 (22-30) mmol/L Anion Gap 10 mmol/L BUN 19 H (7-17) mg/dL Creatinine 1.19 H (0.52-1.04) mg/dL Est GFR (CKD-EPI)AfAm 59 (>60 ml/min/1.73 sqM) Est GFR (CKD-EPI)NonAf 52 (>60 ml/min/1.73 sqM) Glucose 84 (74-99) mg/dL Calcium 10.0 (8.4-10.2) mg/dL Total Bilirubin 0.4 (0.2-1.3) mg/dL AST 26 (14-36) U/L ALT 48 H (4-34) U/L Alkaline Phosphatase 184 H (38-126) U/L Total Protein 8.0 (6.3-8.2) g/dL Albumin 5.0 (3.5-5.0) g/dL Urine Color Yellow Urine Appearance Cloudy H (Clear) Urine pH 6.0 (5.0-8.0) Ur Specific [place] 1.021 (1.001-1.035) Urine Protein Trace H (Negative) Urine Glucose (UA) Negative (Negative) Urine Ketones Negative (Negative) Urine Blood Trace H (Negative) Urine Nitrite Negative (Negative) Urine Bilirubin Negative (Negative) Urine Urobilinogen <2.0 (<2.0) mg/dL Ur Leukocyte Esterase Large H (Negative) Urine RBC 5 (0-5) /hpf Urine WBC >182 H (0-5) /hpf Ur Squamous Epith Cells 5 H (0-4) /hpf Urine Bacteria Many H (None) /hpf Urine Mucus Rare H (None) /hpf Disposition Clinical Impression: Pyelonephritis, UTI (urinary tract infection) Disposition: HOME SELF-CARE Condition: Stable Instructions (If sedation given, give patient instructions): Kidney Infection (ED) Additional Instructions: Please follow-up with your primary care doctor in 2-4 days. Return to the emergency room for any new or worsening symptoms Prescriptions: Cephalexin [Keflex] 500 mg PO Q6HR #28 cap Is patient prescribed a controlled substance at d/c from ED?: No Referrals: Malik Boykin MD [Primary Care Provider] - 1-2 days Time of Disposition: 17:09
== END 2020-07-09 17:21 | disposition home or self-care (01) ==
LOC: EC 15:08
DX: N12 Tubulo-interstitial nephritis, not specified as acute or chronic (principal); N39.0 Urinary tract infection, site not specified; F41.9 Anxiety disorder, unspecified; F32.9 Major depressive disorder, single episode, unspecified; K21.9 Gastro-esophageal reflux disease without esophagitis; I10 Essential (primary) hypertension; F17.200 Nicotine dependence, unspecified, uncomplicated; F12.90 Cannabis use, unspecified, uncomplicated
CPT/HCPCS: 36415; 80053; 85025; 81001; 87086; 87077; 87186; 99284; 96372; J0696

== ENCOUNTER 2020-09-16 12:53 | Inpatient (IN) | payer MEDICARE ==
[2020-09-16 14:09] LABS: Basophils # (A) 0.1 k/uL (0-0.2); Basophils % (A) 1 %; Eosinophils # (A) 0.2 k/uL (0-0.7); Eosinophils % (A) 4 %; HCT 36.3 % (34.0-46.0); HGB 11.7 gm/dL (11.4-16.0); Lymphocytes % (A) 20 %; MCH 30.3 pg (25.0-35.0); MCHC 32.3 g/dL (31.0-37.0); MCV 93.9 fL (80.0-100.0); Mean Platelet Volume 7.1; Monocytes # (A) 0.3 k/uL (0-1.0); Monocytes % (A) 5 %; Neutrophils # (A) 3.6 k/uL (1.3-7.7); Neutrophils % (A) 69 %; Platelet Count 317 k/uL (150-450); RBC 3.87 m/uL (3.80-5.40); RDW 13.4 % (11.5-15.5); WBC 5.2 k/uL (3.8-10.6)
[2020-09-16 14:19] LABS: ALT 27 U/L (4-34); AST 43 U/L (14-36); African American GFR (CKD) 56 (>60 ml/min/1.73 sqM); Albumin 4.3 g/dL (3.5-5.0); Alkaline Phosphatase 128 U/L (38-126); Anion Gap 5 mmol/L; Blood Urea Nitrogen 21 mg/dL (7-17); Calcium 9.5 mg/dL (8.4-10.2); Carbon Dioxide 28 mmol/L (22-30); Chloride 108 mmol/L (98-107); Glucose 80 mg/dL (74-99); Non-African American GFR(CKD) 48 (>60 ml/min/1.73 sqM); Potassium 4.8 mmol/L (3.5-5.1); Sodium 141 mmol/L (137-145); Total Bilirubin <0.1 mg/dL (0.2-1.3); Total Protein 6.6 g/dL (6.3-8.2)
--- NOTE | 2020-09-16 14:44 | CT ---
EXAMINATION TYPE: CT brain wo con DATE OF EXAM: 09/16/2020 COMPARISON: 05/08/2015 HISTORY: h/o tingling in both arms CT DLP: 1080.[address] of the brain was performed. The ventricles, basal cisterns and sulci overlying the cerebral convexities demonstrate mild enlargem ent. There is no evidence for intracranial hemorrhage or sulcal effacement. There is decreased attenuation about the periventricular white matter and deep white matter of both c erebral hemispheres, compatible with chronic small vessel ischemia. Differential diagnosis does inclu de demyelination. No mass effects are seen.No midline shift. Osseous calvarium is intact. If symptoms persist consider MRI. IMPRESSION: 1. Age related atrophic and chronic small vessel ischemic change without acute intracranial process s een at this time.
[2020-09-16 14:47] LABS: INR 0.9 (<1.2); Partial Thromboplastin Time 21.2 sec (22.0-30.0); Prothrombin Time 9.8 sec (9.0-12.0)
--- NOTE | 2020-09-16 15:55 | XR ---
EXAMINATION TYPE: XR chest 2V DATE OF EXAM: 09/16/2020 COMPARISON: 09/29/2016 HISTORY: Shortness of breath TECHNIQUE: Frontal and lateral views of the chest are obtained. FINDINGS: Scattered senescent parenchymal changes noted. Hyperinflation compatible with COPD. No evidence for infiltrate. No evidence for atelectasis. Heart size is stable. Mediastinal structures are stable and grossly unremarkable. No evidence for hilar prominence. Degenerative changes dorsal spine. IMPRESSION: 1. No evidence for acute pulmonary disease.
--- NOTE | 2020-09-16 16:03 | ED ---
Recheck HPI - General Chief Complaint: Recheck/Abnormal Lab/Rx Stated Complaint: Numbness in Back Time Seen by Provider: 09/16/20 13:15 Source: patient Mode of arrival: wheelchair Limitations: no limitations - History of Present Illness Initial Comments: 55yo female presenting for decreased senssation tingling around chest and hands b/l states it feels like ms exacerbation. feels tight. denies jaw or arm pain. nausea,vomiting, abdominal pain, eye pain pain with EOM denies headaches. Pt denies locdalized weakness. unilateral sensation changes. no additional complaints. - Related Data Home Medications Medication Instructions Recorded Confirmed diazePAM [Diazepam] 10 mg PO BID 05/08/15 09/16/20 Verapamil HCl [Verapamil ER] 240 mg PO BID 04/26/16 09/16/20 Citalopram Hydrobromide 40 mg PO HS 08/24/18 09/16/20 [Citalopram HBr] Omeprazole [PriLOSEC] 20 mg PO DAILY 01/15/19 09/16/20 Prednisolone Acetate/Pf 1 drop RIGHT EYE DAILY@1200 01/15/19 09/16/20 [Prednisolone Acet 1% Eye Drop] Brimonidine Tartrate [Alphagan P 1 drops RIGHT EYE DAILY@1200 09/16/20 09/16/20 0.2% Ophth Soln] Ibuprofen [Motrin] 800 mg PO TID PRN 09/16/20 09/16/20 Levothyroxine Sodium [Synthroid] 100 mcg PO DAILY 09/16/20 09/16/20 Allergies Allergy/AdvReac Type Severity Reaction Status Date / Time clindamycin Allergy Rash/Hives Verified 09/16/20 16:15 venom-honey bee Allergy Anaphylaxis Verified 09/16/20 16:15 [bee venom (honey bee)] latex AdvReac Itching Verified 09/16/20 16:15 Review of Systems ROS Statement: Those systems with pertinent positive or pertinent negative responses have been documented in the HPI. ROS Other: All systems not noted in ROS Statement are negative. Past Medical History Past Medical History: GERD/Reflux, Hypertension, Sleep Apnea/CPAP/BIPAP, Thyroid Disorder Additional Past Medical History / Comment(s): [place] but now MRI showed no MS, Behcet's disease. Cdi -2015 History of Any Multi-Drug Resistant Organisms: None Reported Date of last positivie culture/infection: 2014 MDRO Source:: stool Past Surgical History: Back Surgery, Orthopedic Surgery, Tonsillectomy Additional Past Surgical History / Comment(s): neck surgery, cyst removed from wrist, urethral blockage repair, laser eye surgery on right eye twice, screws and plates in upper jaw to sinus area & some in the lower jaw. Back surgery Lumbar area, neck surgery involved removing bones and shortening her neck. Has problems with intubation because of this. Past Anesthesia/Blood Transfusion Reactions: Previous Problems w/ Anesthesia Additional Past Anesthesia/Blood Transfusion Reaction / Comment(s): Neck area surgically shortened and respiratory problems when being intubated. States is very concerned about being intubated because of past respiratory problems. Past Psychological History: Anxiety, Depression Smoking Status: Current every day smoker Past Alcohol Use History: None Reported Past Drug Use History: Marijuana - Past Family History Mother Additional Family Medical History / Comment(s): Patient was adopted and does not know family hx. General Exam Limitations: no limitations Eye exam: Present: normal appearance Pupils: Present: normal accommodation ENT exam: Present: normal exam Neck exam: Present: normal inspection Respiratory exam: Present: normal lung sounds bilaterally Cardiovascular Exam: Present: regular rate, normal rhythm, normal heart sounds Neurological exam: Present: alert, altered, oriented X3, CN II-XII intact, other (tingling in back and hankd b/l) Expanded Patient oriented to: Present: person, place, time Speech: Present: fluid speech Cranial nerves: EOM's Intact: Normal, Gag Reflex: Normal, Tongue Deviation: Normal (nrml), Nystagmus: Normal, Facial Sensation: Normal, Facial Palsy with Forehead Movement: Normal, Facial Palsy without Forehead Movement: Normal Sensory exam: Upper Extremity Light Touch: Normal, Upper Extremity Pin Prick: Normal, Upper Extremity Temperature: Normal, UE 2 Point Discrimination: Normal, Lower Extremity Light Touch: Normal, Lower Extremity Pin Prick: Normal, Lower Extremity Temperature: Normal, LE 2 Point Discrimination: Normal Motor strength exam: RUE: 5, LUE: 5, RLE: 5, LLE: 5 Eye Response: (4) open spontaneously Motor Response: (6) obeys commands Verbal Response: (5) oriented Psychiatric exam: Present: normal affect, normal mood Skin exam: Present: warm, dry, intact, normal color Course Vital Signs 09/16/20 09/16/20 13:06 15:25 Temperature 98.2 F Pulse Rate 89 64 Respiratory 18 18 Rate Blood Pressure 135/88 128/68 O2 Sat by Pulse 99 99 Oximetry Medical Decision Making - Medical Decision Making patient presenting for cc of tingling trunk and hand b/l. hx of MS. feels like exacerbeation, bandlike tingling around chest. ekg no acute changes. troponin (- ). pt CT brain no changes. given iv steroids will be admitted for further evaluation. Dr Nova agreeable to care plan. - Lab Data Result diagrams: 09/16/20 13:58 09/16/20 13:58 Lab Results 09/16/20 09/16/20 09/16/20 Range/Units 13:58 13:58 13:58 WBC 5.2 (3.8-10.6) k/uL RBC 3.87 (3.80-5.40) m/uL Hgb 11.7 (11.4-16.0) gm/dL Hct 36.3 (34.0-46.0) % MCV 93.9 (80.0-100.0) fL MCH 30.3 (25.0-35.0) pg MCHC 32.3 (31.0-37.0) g/dL RDW 13.4 (11.5-15.5) % Plt Count 317 (150-450) k/uL MPV 7.1 Neutrophils % 69 % Lymphocytes % 20 % Monocytes % 5 % Eosinophils % 4 % Basophils % 1 % Neutrophils # 3.6 (1.3-7.7) k/uL Lymphocytes # 1.0 (1.0-4.8) k/uL Monocytes # 0.3 (0-1.0) k/uL Eosinophils # 0.2 (0-0.7) k/uL Basophils # 0.1 (0-0.2) k/uL PT 9.8 (9.0-12.0) sec INR 0.9 (<1.2) APTT 21.2 L (22.0-30.0) sec Sodium 141 (137-145) mmol/L Potassium 4.8 (3.5-5.1) mmol/L Chloride 108 H (98-107) mmol/L Carbon Dioxide 28 (22-30) mmol/L Anion Gap 5 mmol/L BUN 21 H (7-17) mg/dL Creatinine 1.25 H (0.52-1.04) mg/dL Est GFR (CKD-EPI)AfAm 56 (>60 ml/min/1.73 sqM) Est GFR (CKD-EPI)NonAf 48 (>60 ml/min/1.73 sqM) Glucose 80 (74-99) mg/dL Calcium 9.5 (8.4-10.2) mg/dL Magnesium 2.0 (1.6-2.3) mg/dL Total Bilirubin <0.1 L (0.2-1.3) mg/dL AST 43 H (14-36) U/L ALT 27 (4-34) U/L Alkaline Phosphatase 128 H (38-126) U/L Troponin I (0.000-0.034) ng/mL Total Protein 6.6 (6.3-8.2) g/dL Albumin 4.3 (3.5-5.0) g/dL 09/16/20 Range/Units 13:58 WBC (3.8-10.6) k/uL RBC (3.80-5.40) m/uL Hgb (11.4-16.0) gm/dL Hct (34.0-46.0) % MCV (80.0-100.0) fL MCH (25.0-35.0) pg MCHC (31.0-37.0) g/dL RDW (11.5-15.5) % Plt Count (150-450) k/uL MPV Neutrophils % % Lymphocytes % % Monocytes % % Eosinophils % % Basophils % % Neutrophils # (1.3-7.7) k/uL Lymphocytes # (1.0-4.8) k/uL Monocytes # (0-1.0) k/uL Eosinophils # (0-0.7) k/uL Basophils # (0-0.2) k/uL PT (9.0-12.0) sec INR (<1.2) APTT (22.0-30.0) sec Sodium (137-145) mmol/L Potassium (3.5-5.1) mmol/L Chloride (98-107) mmol/L Carbon Dioxide (22-30) mmol/L Anion Gap mmol/L BUN (7-17) mg/dL Creatinine (0.52-1.04) mg/dL Est GFR (CKD-EPI)AfAm (>60 ml/min/1.73 sqM) Est GFR (CKD-EPI)NonAf (>60 ml/min/1.73 sqM) Glucose (74-99) mg/dL Calcium (8.4-10.2) mg/dL Magnesium (1.6-2.3) mg/dL Total Bilirubin (0.2-1.3) mg/dL AST (14-36) U/L ALT (4-34) U/L Alkaline Phosphatase (38-126) U/L Troponin I <0.012 (0.000-0.034) ng/mL Total Protein (6.3-8.2) g/dL Albumin (3.5-5.0) g/dL Disposition Clinical Impression: Paresthesia of hand, bilateral, Multiple sclerosis exacerbation Disposition: ADMITTED IP TO THIS [facility] Condition: Stable Is patient prescribed a controlled substance at d/c from ED?: No Time of Disposition: 16:15 Decision to Admit Reason: Admit from EC Decision Date: 09/16/20 Decision Time: 16:15
[2020-09-16] MEDS ORDERED: methylPREDNISolone SOD SUCCI 125 MG/2 ML VIAL IV STA (16:09)
[2020-09-16] MEDS ORDERED: NALOXONE 0.4 MG/ML 1 ML VIAL IV PRN ×2 (16:15→16:41)
[2020-09-16] MEDS ORDERED: bisacodyL 5 MG TABLET.DR PO PRN (16:41)
[2020-09-16] MEDS ORDERED: MELATONIN 3 MG TABLET PO PRN (16:41)
[2020-09-16] MEDS ORDERED: DOCUSATE 100 MG CAP PO PRN (16:41)
[2020-09-16] MEDS ORDERED: MORPHINE SULFATE 4 MG/ML SYRINGE IV PRN (16:41)
[2020-09-16] MEDS ORDERED: ONDANSETRON 4 MG/2 ML VIAL IVP PRN (16:41)
--- NOTE | 2020-09-16 18:25 | P.HPIM ---
History of Present Illness H&P Date: 09/16/20 Chief Complaint: Back and chest tightness 55-year-old woman with medical history of MS, C3 to T2 spinal fusion with radicular symptoms, GERD, CHAR presented with back and chest pressure. Patient says that she's had some back pressure, chest pressure for the last 2 weeks. Sebastian julien also reports tingling in the ulnar aspect of both hands bilaterally, which is chronic, however, she feels is getting worse. She reports that she does not take any medications for multiple sclerosis, does not agree with her neurologist regarding management and is in search of a new one at present. Regarding her present symptoms, she fears that this may be related to multiple sclerosis flare, which prompted her presentation to the emergency room. Otherwise, she denies symptoms of fevers, chills, nausea, vomiting, chest pain, palpitations, syncope, presyncopal, cough, dyspnea, abdominal pain constipation, diarrhea, dysuria, dyschezia, weakness of extremities. In the emergency room, patient is afebrile, 161/82, heart rate 67, 99% on room air. CBC is unremarkable. PTT is mildly elevated at 21.2, creatinine mildly elevated at 1.25. AST, ALT are 43, 27 respectively with mild elevation of alk phos at 128. Troponin is otherwise negative. Chest x-ray did not demonstrate any acute pulmonary disease. Computed tomography scan showed age-related atrophy without acute intracranial process. EKG was normal sinus rhythm. Review of Systems All Systems reviewed and pertinent positives and negatives noted in HPI, all other symptoms are negative Past Medical History Past Medical History: GERD/Reflux, Hypertension, Sleep Apnea/CPAP/BIPAP, Thyroid Disorder Additional Past Medical History / Comment(s): MS diagnosed [place] ago [place] but now MRI showed no MS, Behcet's disease. Cdiff -2015 History of Any Multi-Drug Resistant Organisms: None Reported Date of last positivie culture/infection: 2014 MDRO Source:: stool Past Surgical History: Back Surgery, Orthopedic Surgery, Tonsillectomy Additional Past Surgical History / Comment(s): neck surgery, cyst removed from wrist, urethral blockage repair, laser eye surgery on right eye twice, screws and plates in upper jaw to sinus area & some in the lower jaw. Back surgery Lumbar area, neck surgery involved removing bones and shortening her neck. Has problems with intubation because of this. Past Anesthesia/Blood Transfusion Reactions: Previous Problems w/ Anesthesia Additional Past Anesthesia/Blood Transfusion Reaction / Comment(s): Neck area surgically shortened and respiratory problems when being intubated. States is very concerned about being intubated because of past respiratory problems. Past Psychological History: Anxiety, Depression Smoking Status: Current every day smoker Past Alcohol Use History: None Reported Past Drug Use History: Marijuana - Past Family History Mother Additional Family Medical History / Comment(s): Patient was adopted and does not know family hx. Medications and Allergies Home Medications Medication Instructions Recorded Confirmed Type diazePAM [Diazepam] 10 mg PO BID 05/08/15 09/16/20 History Verapamil HCl [Verapamil ER] 240 mg PO BID 04/26/16 09/16/20 History Citalopram Hydrobromide 40 mg PO HS 08/24/18 09/16/20 History [Citalopram HBr] Omeprazole [PriLOSEC] 20 mg PO DAILY 01/15/19 09/16/20 History Prednisolone Acetate/Pf 1 drop RIGHT EYE DAILY@1200 01/15/19 09/16/20 History [Prednisolone Acet 1% Eye Drop] Brimonidine Tartrate [Alphagan P 1 drops RIGHT EYE DAILY@1200 09/16/20 09/16/20 History 0.2% Ophth Soln] Ibuprofen [Motrin] 800 mg PO TID PRN 09/16/20 09/16/20 History Levothyroxine Sodium [Synthroid] 100 mcg PO DAILY 09/16/20 09/16/20 History Allergies Allergy/AdvReac Type Severity Reaction Status Date / Time clindamycin Allergy Rash/Hives Verified 09/16/20 16:15 venom-honey bee Allergy Anaphylaxis Verified 09/16/20 16:15 [bee venom (honey bee)] latex AdvReac Itching Verified 09/16/20 16:15 Physical Exam Osteopathic Statement: *. No significant issues noted on an osteopathic structural exam other than those noted in the History and Physical/Consult. Vitals: Vital Signs Temp Pulse Pulse Resp BP BP Pulse Ox 09/16/20 17:48 98.4 F 67 18 161/82 99 09/16/20 15:25 64 18 128/68 99 09/16/20 13:06 98.2 F 89 18 135/88 99 Intake and Output 0509/16/20 09/16/20 06:59 14:59 22:59 Other: Weight 77.111 kg Gen: awake, alert HEENT: normocephalic, atraumatic, good hearing acuity, moist mucous membranes Resp: good air exchange, breathing comfortably with no accessory muscle use, clear to auscultation bilaterally without crackles CVS: good distal perfusion x 4, regular rate and rhythm without murmurs GI: soft, NTTP, ND, appropriate bowel sounds : no SPT, no CVAT, snata catheter not present MSK: no pitting edema, no clubbing, surgical scar from cervical to thoracic spine, lumbar spine, no perivertebral muscle spasm Neuro: Motor strength is 5 out of 5 in all 4 extremities, numbness on the ulnar aspect of bilateral hands Psych: cooperative, euthymic mood Results CBC & Chem 7: 09/16/20 13:58 09/16/20 13:58 Labs: Abnormal Lab Results - Last 24 Hours (Table) 09/16/20 09/16/20 Range/Units 13:58 13:58 APTT 21.2 L (22.0-30.0) sec Chloride 108 H (98-107) mmol/L BUN 21 H (7-17) mg/dL Creatinine 1.25 H (0.52-1.04) mg/dL Total Bilirubin <0.1 L (0.2-1.3) mg/dL AST 43 H (14-36) U/L Alkaline Phosphatase 128 H (38-126) U/L Assessment and Plan Assessment: Chest and back pressure Multiple sclerosis History of C3 to T2 spinal fusion Bilateral C3 radiculopathy -Admit to observation, telemetry -Trend troponins -MRI of the brain -Neurology consult -PT/OT -Pain control -Patient was started on steroids for presumed MS flare, we'll await neurological consultation prior to undergoing therapy -We'll defer imaging of the C-spine for now given good muscle strength in the bilateral upper extremities GERD with esophagitis CHAR Mood disorder -All medications were reviewed and reconciled Patient is full code DVT prophylaxis with heparin 3 times a day
[2020-09-16] MEDS: VERAPAMIL SR 240 MG TABLET.ER PO SCH (20:04)
[2020-09-16] MEDS: diazePAM 5 MG TAB PO SCH (20:04)
[2020-09-16] MEDS: CITALOPRAM HYDROBROMIDE 20 MG TAB PO SCH (20:05)
[2020-09-17] MEDS: HEPARIN SODIUM,PORCINE/PF 5,000 UNIT/0.5 ML SYRINGE SQ SCH ×3 (01:22→15:32)
[2020-09-17 05:59] LABS: Basophils % (A) 0 %; Eosinophils # (A) 0.1 k/uL (0-0.7); Eosinophils % (A) 1 %; HGB 12.5 gm/dL (11.4-16.0); Lymphocytes # (A) 0.6 k/uL (1.0-4.8); Lymphocytes % (A) 6 %; MCH 31.2 pg (25.0-35.0); MCHC 33.7 g/dL (31.0-37.0); MCV 92.4 fL (80.0-100.0); Mean Platelet Volume 7.2; Monocytes # (A) 0.1 k/uL (0-1.0); Monocytes % (A) 1 %; Neutrophils # (A) 10.2 k/uL (1.3-7.7); Neutrophils % (A) 93 %; Platelet Count 324 k/uL (150-450); RDW 12.7 % (11.5-15.5); WBC 11.1 k/uL (3.8-10.6)
[2020-09-17 06:08] LABS: Calcium 10.2 mg/dL (8.4-10.2); Magnesium 1.9 mg/dL (1.6-2.3); Potassium 4.7 mmol/L (3.5-5.1)
[2020-09-17] MEDS: LEVOTHYROXINE 100 MCG TAB PO SCH (06:52)
[2020-09-17] MEDS ORDERED: PANTOPRAZOLE 40 MG TABLET PO SCH (07:30)
--- NOTE | 2020-09-17 09:19 | P.CNNES ---
History of Present Illness Consult date: 09/17/20 Requesting physician: Roberth Stevens Reason for Consult: Multiple sclerosis with pain History of Present Illness: This is a 55-year-old woman with medical history of multiple sclerosis (diagnosed in year 1999), C3 to C6 spinal fusion (2014) with revision couple month later, lumbosacral fusion, obstructive sleep apnea who presented emergency department on 09/16/2020 with pressure around her ribs/around side of middle chest region and worsening of her gait. He said that that she's been having tightening of the pressure around the ribs going up and located in middle back region/chest region and feels someone is hug, or slight squeezing sensation for the last two weeks. She also feels her gait is more off than baseline for the same duration. She also feels worsening of the numbness over the bilateral fourth and fifth digits going up to the elbow. She denies of any worsening of her vision, any sensory loss that's new, any difficulty getting her words out, any focal weakness, any difficulty getting her words out or swallowing. She denies of any fever any cough. She does have shortness of breath. Some of the patient's home medications are diazepam 10 mg 1 tablet twice a day, verapamil 240 mg 1 tablet twice a day, citalopram 40 mg daily at bedtime, Synthroid, Prilosec, ibuprofen when necessary. According to the patient she was diagnosed with multiple sclerosis in the year 1999 and she was diagnosed the while living in [facility]. She said that she had lumbar p uncture and the MRIs and and was told she has MS. She said that she was on a medication while she was in [place] but does not recall medication. But when she moved back to [place] she was followed up with a local neurologist (Dr. Miller) and said she has not been on any disease modifying therapy since 2013. Patient stated she does not know why she is not on maintenance therapy for her multiple Sclerosis and feels she does not get answers. She had does get the serial MRI imaging but does not know results. She said that she has numbness and tingling of the the fourth and fifth digit going up to the elbow and it's been going on for years and that she got multiple EMGs at her neurologist office and was told that she had carpal tunnel syndrome. She said that she was initially the seeing her neurologist regarding her lower back pain but when she tried to get the multiple sclerosis addressed nothing was happening according to her. Patient had optic neuritis of the right eye and had multiple flares in 2019 and received steroids but optic neuritis has resulted in vision change. She follows up with an tanner rotary drum continuous process over at [facility] locally. Patient stated that the she had the cervical and lumbosacral fusion in the cervical was in 2015 and she had revision since was collapse and both times she had it done at [facility] as well as she had the lumbosacral fusion also at [facility] in 2016. She said that her gait baseline is off but she is able to walk with any assistance. She does have chronic urinary incontinence. Some of the work-up in the hospital consisted of: Initial vital signs are a blood pressure of 135/88, heart rate of 89, respirato ry of 18, temperature of 98.2 Fahrenheit oral and pulse ox of 99% room air. CT of the head is reported as age-related atrophic and chronic small vessel ischemic change without acute intracranial process seen at this time. EKG is reported as normal sinus rhythm. Normal EKG. Her initial CBC is normal. Her basic chemistry panel was the creatinine is 1.25 with a slightly elevated. But on repeated grand level at normalized and it's 0.92. AST is 43 which is again slightly elevated and the ALT is normal 27. In the ED the patient received the one dose of Solu-Medrol 125 mg Review of Systems Review of system: The 12 point system was reviewed and apparent positive and negative per HPI. Past Medical History Past Medical History: GERD/Reflux, Hypertension, Sleep Apnea/CPAP/BIPAP, Thyroid Disorder Additional Past Medical History / Comment(s): MS diagnosed [place] ago [place] but now MRI showed no MS, Behcet's disease. Cdiff -2015 History of Any Multi-Drug Resistant Organisms: None Reported Date of last positivie culture/infection: 2014 MDRO Source:: stool Past Surgical History: Back Surgery, Orthopedic Surgery, Tonsillectomy Additional Past Surgical History / Comment(s): neck surgery, cyst removed from wrist, urethral blockage repair, laser eye surgery on right eye twice, screws and plates in upper jaw to sinus area & some in the lower jaw. Back surgery Lumbar area, neck surgery involved removing bones and shortening her neck. Has problems with intubation because of this. Past Anesthesia/Blood Transfusion Reactions: Previous Problems w/ Anesthesia Additional Past Anesthesia/Blood Transfusion Reaction / Comment(s): Neck area surgically shortened and respiratory problems when being intubated. States is very concerned about being intubated because of past respiratory problems. Past Psychological History: Anxiety, Depression Smoking Status: Current every day smoker Past Alcohol Use History: None Reported Past Drug Use History: Marijuana - Past Family History Mother Family Medical History: Unable to Obtain Additional Family Medical History / Comment(s): Patient was adopted and does not know family hx. Medications and Allergies Home Medications Medication Instructions Recorded Confirmed Type diazePAM [Diazepam] 10 mg PO BID 05/08/15 09/16/20 History Verapamil HCl [Verapamil ER] 240 mg PO BID 04/26/16 09/16/20 History Citalopram Hydrobromide 40 mg PO HS 08/24/18 09/16/20 History [Citalopram HBr] Omeprazole [PriLOSEC] 20 mg PO DAILY 01/15/19 09/16/20 History Prednisolone Acetate/Pf 1 drop RIGHT EYE DAILY@1200 01/15/19 09/16/20 History [Prednisolone Acet 1% Eye Drop] Brimonidine Tartrate [Alphagan P 1 drops RIGHT EYE DAILY@1200 09/16/20 09/16/20 History 0.2% Ophth Soln] Ibuprofen [Motrin] 800 mg PO TID PRN 09/16/20 09/16/20 History Levothyroxine Sodium [Synthroid] 100 mcg PO DAILY 09/16/20 09/16/20 History Allergies Allergy/AdvReac Type Severity Reaction Status Date / Time clindamycin Allergy Rash/Hives Verified 09/16/20 16:15 venom-honey bee Allergy Anaphylaxis Verified 09/16/20 16:15 [bee venom (honey bee)] latex AdvReac Itching Verified 09/16/20 16:15 Physical Examination - Vital Signs Vital Signs: Vital Signs Temp Pulse Pulse Resp BP BP BP 09/17/20 01:31 97.6 F 75 18 107/44 09/16/20 20:00 98.1 F 62 18 135/79 154/102 09/16/20 17:48 98.4 F 67 18 161/82 09/16/20 15:25 64 18 128/68 09/16/20 13:06 98.2 F 89 18 135/88 Pulse Ox 09/17/20 01:31 96 09/16/20 20:00 99 09/16/20 17:48 99 09/16/20 15:25 99 09/16/20 13:06 99 Intake and Output 09/16/20 09/17/20 09/17/20 22:59 06:59 14:59 Intake Total 300 Output Total 1200 Balance -900 Intake: Oral 300 Output: Urine 1200 Other: Voiding Method Toilet Toilet # Voids 1 Weight 76.4 kg GENERAL: The patient is lying in bed and is not in acute distress. CHEST: The heart rate is regular rate rhythm. No murmurs to auscultation. No carotid bruit bilaterally. LUNG: Clear to auscultation bilaterally no wheezing noted throughout. Not labored breathing. Upon walking her she was short of breath. ABDOMEN/GI: Bowel sounds present in all 4 quadrants. No tenderness to palpation throughout. NEUROLOGICAL: Higher mental function: The patient is awake, alert, oriented to self, place and time. Patient is following commands. No aphasia and no neglect. Cranial nerves: Has some opacity of the right eyes (old previous optic neuritis). The right eyes at primary gaze is extropia. The left pupil is round, about 4mm and reactive to light. Visual seals are full to confrontation on the left but right she was able to see lower half but not upper. EOM in intact and no nystagmus. Facial sensation is normal to touch throughout. The facial strength is normal throughout. Hearing is mildly to moderately decreased bilaterally to hand rub. Tongue is midline and moved [id number] without any difficulty. No dysarthria is noted at rest but after walking she started to have stutter. Shoulder shrug is normal bilaterally. Motor: Gait seemed somewhat wobbly but was not swaying toward one side or other (walking unassisted and stated that is her baseline). The strength is 5 over 5 throughout. Normal tone and bulk. Cerebellum: Normal finger to nose bilaterally. Sensation: Sensation is decreased to touch of the lateral middle forearm and last 4th and 5th digits and from mid-calf all way down (old) to touch and pinprick. Reflexes (right/left): 3+ throughout with positive Evangelista bilaterally. Plantars are downgoing bilaterally. Results - Laboratory Findings CBC and BMP: 09/17/20 05:40 09/17/20 05:40 Abnormal Lab Findings: Abnormal Labs 09/16/20 09/16/20 09/17/20 13:58 13:58 05:40 WBC 11.1 H Neutrophils # 10.2 H Lymphocytes # 0.6 L APTT 21.2 L Chloride 108 H BUN 21 H Creatinine 1.25 H Glucose Total Bilirubin <0.1 L AST 43 H Alkaline Phosphatase 128 H 09/17/20 05:40 WBC Neutrophils # Lymphocytes # APTT Chloride BUN 22 H Creatinine Glucose 129 H Total Bilirubin AST Alkaline Phosphatase Assessment and Plan Assessment: Multiple Sclerosis Exacerbation (symptoms of tightness of the ribs around the chest region is bear hug or MS banding). History of multiple sclerosis since year 1999 (Diagnosed at [facility]) and has not on Disease modifying therapy Bilateral ulnar neuropathy History of right optic neuritis 2019 resulted in right visual disturbance History of C3 to C6 fusion (2014) with revision couple month later History of Lumbosacral fusion (L3-S1) in 2015 Acute kidney insufficiency---resolved Chronic history of urinary incontinence obstructive sleep apnea Plan: CT of the head is reported as age-related atrophic and chronic small vessel ischemic change without acute intracranial process seen at this time. In the ED the patient received the one dose of Solu-Medrol 125 mg She does not want to get any MRI imaging and rather once to be started on IV steroids. Therefore will start the patient on IV Solu-Medrol 500 mg every 12 hours for 3-5 days. Physical therapy and occupation therapy are consulted. Placed the patient on every 4 hours neuro checks. Placed the patient on continuous cardiac monitoring Currently the patient is on morphine 4 mg every 4 hours and that is ordered by the primary team and we'll defer the pain management to the primary team. Upon discharge the patient needs to follow-up with a neurologist as an outpatient within 1-2 weeks (she will attempt to seek an Multiple Sclerosis specialist). Recommend patient to get a repeat EMG with NCS as outpatient We'll defer the rest of the medical management to the primary team The plan is discussed with the patient's nurse. Thank you for the consultation Iraj Michaud M.D. Neuro-hospitalist Time with Patient: Greater than 30
[2020-09-17] MEDS: VERAPAMIL SR 240 MG TABLET.ER PO SCH ×2 (10:06→20:56)
[2020-09-17] MEDS: diazePAM 5 MG TAB PO SCH ×2 (10:06→20:55)
--- NOTE | 2020-09-17 12:34 | P.PN ---
Subjective Progress Note Date: 09/17/20 No new complaint today. Pt with MS flare causing MS "Hug" phenomenon. Started on IV steroids with neurology yesterday. Doing well, in good spirits. Improving symptoms overall per patient. Objective - Vital Signs Vital signs: Vital Signs Temp 97.9 F 09/17/20 08:35 Pulse 70 09/17/20 08:35 Resp 18 09/17/20 08:35 BP 163/94 09/17/20 08:35 Pulse Ox 96 09/17/20 08:35 Intake & Output 09/16/20 09/17/20 09/17/20 18:59 06:59 18:59 Intake Total 300 Output Total 1200 500 Balance -900 -500 Weight 76.4 kg Intake: Oral 300 Output: Urine 1200 500 Other: Voiding Method Toilet # Voids 1 - Exam Gen: awake, alert HEENT: normocephalic, atraumatic, good hearing acuity, moist mucous membranes Resp: good air exchange, breathing comfortably with no accessory muscle use, clear to auscultation bilaterally without crackles CVS: good distal perfusion x 4, regular rate and rhythm without murmurs GI: soft, NTTP, ND, appropriate bowel sounds : no SPT, no CVAT, santa catheter not present MSK: no pitting edema, no clubbing, surgical scar from cervical to thoracic spine, lumbar spine, no perivertebral muscle spasm Neuro: Motor strength is 5 out of 5 in all 4 extremities, numbness on the ulnar aspect of bilateral hands Psych: cooperative, euthymic mood - Labs CBC & Chem 7: 09/17/20 05:40 09/17/20 05:40 Labs: Abnormal Lab Results - Last 24 Hours (Table) 09/16/20 09/16/20 09/17/20 Range/Units 13:58 13:58 05:40 WBC 11.1 H (3.8-10.6) k/uL Neutrophils # 10.2 H (1.3-7.7) k/uL Lymphocytes # 0.6 L (1.0-4.8) k/uL APTT 21.2 L (22.0-30.0) sec Chloride 108 H (98-107) mmol/L BUN 21 H (7-17) mg/dL Creatinine 1.25 H (0.52-1.04) mg/dL Glucose (74-99) mg/dL Total Bilirubin <0.1 L (0.2-1.3) mg/dL AST 43 H (14-36) U/L Alkaline Phosphatase 128 H (38-126) U/L / Range/Units 05:40 WBC (3.8-10.6) k/uL Neutrophils # (1.3-7.7) k/uL Lymphocytes # (1.0-4.8) k/uL APTT (22.0-30.0) sec Chloride (98-107) mmol/L BUN 22 H (7-17) mg/dL Creatinine (0.52-1.04) mg/dL Glucose 129 H (74-99) mg/dL Total Bilirubin (0.2-1.3) mg/dL AST (14-36) U/L Alkaline Phosphatase (38-126) U/L Assessment and Plan Assessment: MS Hug Phenomenon Multiple Sclerosis Flare History of C3 to T2 spinal fusion Bilateral C3 radiculopathy -Admit to observation, telemetry -Trend troponins -MRI of the brain -Neurology consult -PT/OT -Pain control -continue IV Steroids for 3-5 days for MS Flare -will need outpatient MS specialist referral -We'll defer imaging of the C-spine for now given good muscle strength in the bilateral upper extremities GERD with esophagitis CHAR Mood disorder -All medications were reviewed and reconciled Patient is full code DVT prophylaxis with heparin 3 times a day
[2020-09-17] MEDS: BRIMONIDINE TARTRATE 0.2% DROPS 5 ML BTL RIGHT EYE SCH (13:27)
[2020-09-17] MEDS: prednisoLONE ACETATE 1% OPHTH DROPS 5 ML BTL RIGHT EYE SCH (13:27)
[2020-09-17] MEDS ORDERED: NICOTINE 21MG/24HR PATCH TRANSDERM SCH (16:15)
[2020-09-17 17:20] LABS: Glucose,Whole Blood 271 mg/dL (75-99)
[2020-09-17] MEDS: NICOTINE 14MG/24HR PATCH TRANSDERM SCH (17:52)
[2020-09-17] MEDS: INSULIN ASPART (NovoLOG) 100 UNIT/ML VIAL SQ SCH ×2 (18:20→22:25)
[2020-09-17] MEDS: ACETAMINOPHEN TAB 325 MG TAB PO PRN (20:55)
[2020-09-17] MEDS: PANTOPRAZOLE 40 MG/10 ML VIAL IVP SCH (20:56)
[2020-09-17] MEDS: CITALOPRAM HYDROBROMIDE 20 MG TAB PO SCH (20:56)
[2020-09-17 21:02] LABS: Glucose,Whole Blood 157 mg/dL (75-99)
[2020-09-18] MEDS: HEPARIN SODIUM,PORCINE/PF 5,000 UNIT/0.5 ML SYRINGE SQ SCH ×3 (01:10→16:38)
[2020-09-18] MEDS: LEVOTHYROXINE 100 MCG TAB PO SCH (05:49)
[2020-09-18 07:33] LABS: Glucose,Whole Blood 128 mg/dL (75-99)
[2020-09-18] MEDS: diazePAM 5 MG TAB PO SCH ×2 (08:09→20:40)
[2020-09-18] MEDS: VERAPAMIL SR 240 MG TABLET.ER PO SCH ×2 (08:10→20:40)
[2020-09-18] MEDS: PANTOPRAZOLE 40 MG/10 ML VIAL IVP SCH ×2 (08:10→20:42)
[2020-09-18] MEDS: NICOTINE 14MG/24HR PATCH TRANSDERM SCH (08:10)
[2020-09-18] MEDS: INSULIN ASPART (NovoLOG) 100 UNIT/ML VIAL SQ SCH ×4 (08:42→20:41)
[2020-09-18] MEDS: ACETAMINOPHEN TAB 325 MG TAB PO PRN ×2 (11:23→18:10)
[2020-09-18 11:29] LABS: Glucose,Whole Blood 122 mg/dL (75-99)
--- NOTE | 2020-09-18 12:52 | P.PN ---
Subjective Progress Note Date: 09/18/20 The patient was seen at bedside and the patient stated that she's doing somewhat better today compared to yesterday. Denies of any neurological problems. Objective - Vital Signs Vital signs: Vital Signs Temp 97.6 F 09/18/20 05:00 Pulse 72 09/18/20 05:00 Resp 20 09/18/20 05:00 BP 124/82 09/18/20 05:00 Pulse Ox 98 09/18/20 05:00 Intake & Output 09/17/20 09/18/20 09/18/20 18:59 06:59 18:59 Intake Total 480 1260 Output Total 500 Balance -20 1260 Intake: Intake, IV Titration 100 Amount methylPREDNISolone SOD 100 SUCC 500 mg In Sodium Chloride 0.9% 100 ml @ 100 mls/hr IVPB BID [facility] Rx#:[id number] Oral 480 1160 Output: Urine 500 Other: # Voids 1 2 1 - Exam GENERAL: The patient is lying in bed and is not in acute distress. NEUROLOGICAL: Higher mental function: The patient is awake, alert, oriented to self, place and time. Patient is following commands. No aphasia and no neglect. Cranial nerves: Has some opacity of the right eyes (old previous optic neuritis). The right eyes at primary gaze is extropia. The left pupil is round, about 4mm and reactive to light. Visual seals are full to confrontation on the left but right she was able to see lower half but not upper. EOM in intact and no nystagmus. Facial sensation is normal to touch throughout. The facial strength is normal throughout. Hearing is mildly to moderately decreased bilaterally to hand rub. Tongue is midline and moved [id number] without any difficulty. No dysarthria is noted at rest but after walking she started to have stutter. Shoulder shrug is normal bilaterally. Motor: Gait seemed somewhat wobbly but was not swaying toward one side or other (walking unassisted and stated that is her baseline). The strength is 5 over 5 throughout. Normal tone and bulk. Cerebellum: Normal finger to nose bilaterally. Sensation: Sensation is decreased to touch of the lateral middle forearm and last 4th and 5th digits and from mid-calf all way down (old) to touch and pinprick. Reflexes (right/left): 3+ throughout with positive Evangelista bilaterally. Plantars are downgoing bilaterally. - Labs CBC & Chem 7: 09/17/20 05:40 09/17/20 05:40 Labs: Abnormal Lab Results - Last 24 Hours (Table) 09/17/20 09/17/20 09/18/20 Range/Units 17:12 20:48 07:31 POC Glucose (mg/dL) 271 H 157 H 128 H (75-99) mg/dL 09/18/20 Range/Units 11:27 POC Glucose (mg/dL) 122 H (75-99) mg/dL Assessment and Plan Assessment: Multiple Sclerosis Exacerbation (symptoms of tightness of the ribs around the chest region is bear hug or MS banding). History of multiple sclerosis since year 1999 (Diagnosed at [facility]) and has not on Disease modifying therapy Bilateral ulnar neuropathy History of right optic neuritis 2019 resulted in right visual disturbance History of C3 to C6 fusion (2014) with revision couple month later History of Lumbosacral fusion (L3-S1) in 2016 Acute kidney insufficiency---resolved Chronic history of urinary incontinence obstructive sleep apnea Plan: CT of the head is reported as age-related atrophic and chronic small vessel ischemic change without acute intracranial process seen at this time. In the ED the patient received the one dose of Solu-Medrol 125 mg She does not want to get any MRI imaging and rather and only IV steroids. She is on IV Solu-Medrol 500mg every 12 hours (started on 09/17/2020) today is day 2, she will be it for 3-5 days depends on how she responds. Physical therapy and occupation therapy are consulted. Placed the patient on every 4 hours neuro checks. Placed the patient on continuous cardiac monitoring Currently the patient is on morphine 4 mg every 4 hours and that is ordered by the primary team and we'll defer the pain management to the primary team. Upon discharge the patient needs to follow-up with a neurologist as an outpatient within 1-2 weeks (she will attempt to seek an Multiple Sclerosis specialist). Recommend patient to get a repeat EMG with NCS as outpatient We'll defer the rest of the medical management to the primary team The plan is discussed with the patient's nurse. Iraj Michaud M.D. Neuro-hospitalist Time with Patient: Less than 30
[2020-09-18] MEDS: BRIMONIDINE TARTRATE 0.2% DROPS 5 ML BTL RIGHT EYE SCH (13:20)
[2020-09-18] MEDS: prednisoLONE ACETATE 1% OPHTH DROPS 5 ML BTL RIGHT EYE SCH (13:20)
--- NOTE | 2020-09-18 15:29 | P.PN ---
Subjective Progress Note Date: 09/18/20 No new complaints today, ongoing chest and back pressure, worse throughout the day and at night. Objective - Vital Signs Vital signs: Vital Signs Temp 97.8 F 09/18/20 12:00 Pulse 71 09/18/20 12:00 Resp 14 09/18/20 12:00 BP 130/84 09/18/20 12:00 Pulse Ox 97 09/18/20 12:00 Intake & Output 09/17/20 09/18/20 09/18/20 18:59 06:59 18:59 Intake Total 480 1260 360 Output Total 500 Balance -20 1260 360 Intake: Intake, IV Titration 100 Amount methylPREDNISolone SOD 100 SUCC 500 mg In Sodium Chloride 0.9% 100 ml @ 100 mls/hr IVPB BID [facility] Rx#:[id number] Oral 480 1160 360 Output: Urine 500 Other: Voiding Method Toilet # Voids 1 2 1 - Exam Gen: awake, alert HEENT: normocephalic, atraumatic, good hearing acuity, moist mucous membranes Resp: good air exchange, breathing comfortably with no accessory muscle use, clear to auscultation bilaterally without crackles CVS: good distal perfusion x 4, regular rate and rhythm without murmurs GI: soft, NTTP, ND, appropriate bowel sounds : no SPT, no CVAT, santa catheter not present MSK: no pitting edema, no clubbing, surgical scar from cervical to thoracic spine, lumbar spine, no perivertebral muscle spasm Neuro: Motor strength is 5 out of 5 in all 4 extremities, numbness on the ulnar aspect of bilateral hands Psych: cooperative, euthymic mood - Labs CBC & Chem 7: 09/17/20 05:40 09/17/20 05:40 Labs: Abnormal Lab Results - Last 24 Hours (Table) 09/17/20 09/17/20 09/18/20 Range/Units 17:12 20:48 07:31 POC Glucose (mg/dL) 271 H 157 H 128 H (75-99) mg/dL 09/18/20 Range/Units 11:27 POC Glucose (mg/dL) 122 H (75-99) mg/dL Assessment and Plan Assessment: MS Hug Phenomenon Multiple Sclerosis Flare History of C3 to T2 spinal fusion Bilateral C3 radiculopathy -Admit to observation, telemetry -Trend troponins -MRI of the brain -Neurology consult -PT/OT -Pain control -continue IV Steroids for 3-5 days for MS Flare -will need outpatient MS specialist referral -We'll defer imaging of the C-spine for now given good muscle strength in the bilateral upper extremities GERD with esophagitis CHAR Mood disorder -All medications were reviewed and reconciled Patient is full code DVT prophylaxis with heparin 3 times a day
[2020-09-18 17:20] LABS: Glucose,Whole Blood 180 mg/dL (75-99)
[2020-09-18 20:30] LABS: Glucose,Whole Blood 160 mg/dL (75-99)
[2020-09-19] MEDS: HEPARIN SODIUM,PORCINE/PF 5,000 UNIT/0.5 ML SYRINGE SQ SCH ×4 (00:10→23:19)
[2020-09-19] MEDS: LEVOTHYROXINE 100 MCG TAB PO SCH (05:09)
[2020-09-19 07:19] LABS: Glucose,Whole Blood 124 mg/dL (75-99)
[2020-09-19] MEDS: INSULIN ASPART (NovoLOG) 100 UNIT/ML VIAL SQ SCH ×4 (07:43→20:30)
[2020-09-19] MEDS: PANTOPRAZOLE 40 MG/10 ML VIAL IVP SCH ×2 (07:56→20:30)
[2020-09-19] MEDS: NICOTINE 14MG/24HR PATCH TRANSDERM SCH (07:57)
[2020-09-19] MEDS: CHOLECALCIFEROL 25 MCG (1000 IU) TABLET PO SCH (07:57)
[2020-09-19] MEDS: diazePAM 5 MG TAB PO SCH ×2 (07:57→20:29)
[2020-09-19] MEDS: VERAPAMIL SR 240 MG TABLET.ER PO SCH ×2 (07:57→20:30)
[2020-09-19 11:38] LABS: Glucose,Whole Blood 131 mg/dL (75-99)
--- NOTE | 2020-09-19 12:21 | P.PN ---
Subjective Progress Note Date: 09/19/20 Pt still reporting symptoms of back pressure and chest pressure worse at night. Pts speech appears to be more stuttered today. Objective - Vital Signs Vital signs: Vital Signs Temp 97.4 F L 09/19/20 05:00 Pulse 66 09/19/20 05:00 Resp 20 09/19/20 05:00 BP 127/81 09/19/20 05:00 Pulse Ox 98 09/19/20 05:00 Intake & Output 09/18/20 09/19/20 09/19/20 18:59 06:59 18:59 Intake Total 1460 690 Balance 1460 690 Intake: Oral 1460 690 Other: Voiding Method Toilet Toilet # Voids 3 2 - Exam Gen: awake, alert HEENT: normocephalic, atraumatic, good hearing acuity, moist mucous membranes Resp: good air exchange, breathing comfortably with no accessory muscle use, clear to auscultation bilaterally without crackles CVS: good distal perfusion x 4, regular rate and rhythm without murmurs GI: soft, NTTP, ND, appropriate bowel sounds : no SPT, no CVAT, santa catheter not present MSK: no pitting edema, no clubbing, surgical scar from cervical to thoracic spine, lumbar spine, no perivertebral muscle spasm Neuro: Motor strength is 5 out of 5 in all 4 extremities, numbness on the ulnar aspect of bilateral hands Psych: cooperative, euthymic mood - Labs CBC & Chem 7: 09/17/20 05:40 09/17/20 05:40 Labs: Abnormal Lab Results - Last 24 Hours (Table) 09/18/20 09/18/20 09/19/20 Range/Units 17:18 20:28 07:18 POC Glucose (mg/dL) 180 H 160 H 124 H (75-99) mg/dL 09/19/20 Range/Units 11:36 POC Glucose (mg/dL) 131 H (75-99) mg/dL Assessment and Plan Assessment: MS Hug Phenomenon Multiple Sclerosis Flare History of C3 to T2 spinal fusion Bilateral C3 radiculopathy -Admit to observation, telemetry -Trend troponins -MRI of the brain -Neurology consult -PT/OT -Pain control -continue IV Steroids for 3-5 days for MS Flare, will touch base with neuro regarding increasing dose -will need outpatient MS specialist referral -We'll defer imaging of the C-spine for now given good muscle strength in the bilateral upper extremities GERD with esophagitis CHAR Mood disorder -All medications were reviewed and reconciled Patient is full code DVT prophylaxis with heparin 3 times a day
[2020-09-19] MEDS ORDERED: bisacodyL 10 MG SUPP RECTAL STA (12:34)
[2020-09-19] MEDS: prednisoLONE ACETATE 1% OPHTH DROPS 5 ML BTL RIGHT EYE SCH (12:37)
[2020-09-19] MEDS: BRIMONIDINE TARTRATE 0.2% DROPS 5 ML BTL RIGHT EYE SCH (12:37)
[2020-09-19 13:55] VITALS: RESP 16
[2020-09-19] MEDS: ACETAMINOPHEN TAB 325 MG TAB PO PRN (14:20)
--- NOTE | 2020-09-19 16:10 | P.PN ---
Subjective Progress Note Date: 09/19/20 The patient is seen at bedside and she notified me that she is feel better with compared to initial presentation. She notified me that she is getting better and denies any worsening towards end of the day but notifed the primary team that she is have some worsening towards end of the day. She denies of diplopia. She denies of chocking episode with prolonged eating. She said she had few episodes in past where she get tired towards end of day but on recently. Objective - Vital Signs Vital signs: Vital Signs Temp 97.8 F 09/19/20 12:05 Pulse 64 09/19/20 12:05 Resp 16 09/19/20 12:05 BP 128/77 09/19/20 12:05 Pulse Ox 98 09/19/20 12:05 Intake & Output 09/18/20 09/19/20 09/19/20 18:59 06:59 18:59 Intake Total 1460 690 240 Balance 1460 690 240 Intake: Oral 1460 690 240 Other: Voiding Method Toilet Toilet # Voids 3 2 - Exam GENERAL: The patient is lying in bed and is not in acute distress. NEUROLOGICAL: Higher mental function: The patient is awake, alert, oriented to self, place and time. Patient is following commands. No aphasia and no neglect. Cranial nerves: Has some opacity of the right eyes (old previous optic neuritis ). The right eyes at primary gaze is extropia. The left pupil is round, about 4mm and reactive to light. Visual seals are full to confrontation on the left but right she was able to see lower half but not upper. EOM in intact and no nystagmus. Facial sensation is normal to touch throughout. The facial strength is normal throughout. Hearing is mildly to moderately decreased bilaterally to hand rub. Tongue is midline and moved [id number] without any difficulty. No dysarthria is noted at rest but after walking she started to have stutter. Shoulder shrug is normal bilaterally. Motor: Gait seemed somewhat wobbly but was not swaying toward one side or other (walking unassisted and stated that is her baseline). The strength is 5 over 5 throughout. Normal tone and bulk. Cerebellum: Normal finger to nose bilaterally. Sensation: Sensation is decreased to touch of the lateral middle forearm and last 4th and 5th digits and from mid-calf all way down (old) to touch and pinprick. Reflexes (right/left): 3+ throughout with positive Evangelista bilaterally. Plantars are downgoing bilaterally. - Labs CBC & Chem 7: 09/17/20 05:40 09/17/20 05:40 Labs: Abnormal Lab Results - Last 24 Hours (Table) 09/18/20 09/18/20 09/19/20 Range/Units 17:18 20:28 07:18 POC Glucose (mg/dL) 180 H 160 H 124 H (75-99) mg/dL 09/19/20 Range/Units 11:36 POC Glucose (mg/dL) 131 H (75-99) mg/dL Assessment and Plan Assessment: Multiple Sclerosis Exacerbation (symptoms of tightness of the ribs around the chest region is bear hug or MS banding). History of multiple sclerosis since year 1999 (Diagnosed at [facility]) and has not on Disease modifying therapy Bilateral ulnar neuropathy History of right optic neuritis 2019 resulted in right visual disturbance History of C3 to C6 fusion (2014) with revision couple month later History of Lumbosacral fusion (L3-S1) in 2016 Acute kidney insufficiency---resolved Chronic history of urinary incontinence obstructive sleep apnea Plan: CT of the head is reported as age-related atrophic and chronic small vessel ischemic change without acute intracranial process seen at this time. In the ED the patient received the one dose of Solu-Medrol 125 mg * She does not want to get any MRI imaging and rather and only IV steroids. She is on IV Solu-Medrol 500mg every 12 hours (started on 09/17/2020) today is day 3. Possibly stop Solu-Medrol tomorrow if she is stable and back to baseline. * Physical therapy and occupation therapy are consulted. * Placed the patient on every 4 hours neuro checks. * Placed the patient on continuous cardiac monitoring * Currently the patient is on morphine 4 mg every 4 hours and that is ordered by the primary team and we'll defer the pain management to the primary team. * Upon discharge the patient needs to follow-up with a neurologist as an outpatient within 1-2 weeks (she will attempt to seek an Multiple Sclerosis specialist). * Recommend patient to get a repeat EMG with NCS. Acetylcholine esterase antibody is ordered to rule out Myasthenia Gravis since having worsening of symptoms towards end of day (but denied that to me and did not clear history of Myasthenia Gravis). Recommend repetitive conduction study and single fiber stimulation study and other neuromuscular disorder work-up as outpatient. * We'll defer the rest of the medical management to the primary team If the patient is improved and back to baseline by tomorrow then she is clear from neurology perspective. The plan is discussed with the patient's primary team. Iraj Michaud M.D. Neuro-hospitalist Time with Patient: Less than 30
[2020-09-19 17:56] LABS: Glucose,Whole Blood 216 mg/dL (75-99)
[2020-09-19 20:26] LABS: Glucose,Whole Blood 163 mg/dL (75-99)
[2020-09-19] MEDS: CITALOPRAM HYDROBROMIDE 20 MG TAB PO SCH (20:30)
[2020-09-20] MEDS: LEVOTHYROXINE 100 MCG TAB PO SCH (05:02)
[2020-09-20 05:29] VITALS: BP 119/66; PULSE 67; TEMP 97.8
[2020-09-20 07:14] LABS: Glucose,Whole Blood 141 mg/dL (75-99)
[2020-09-20] MEDS: NICOTINE 14MG/24HR PATCH TRANSDERM SCH (08:33)
[2020-09-20] MEDS: INSULIN ASPART (NovoLOG) 100 UNIT/ML VIAL SQ SCH ×2 (08:34→12:33)
[2020-09-20] MEDS: diazePAM 5 MG TAB PO SCH (08:35)
[2020-09-20] MEDS: CHOLECALCIFEROL 25 MCG (1000 IU) TABLET PO SCH (08:35)
[2020-09-20] MEDS: HEPARIN SODIUM,PORCINE/PF 5,000 UNIT/0.5 ML SYRINGE SQ SCH (08:35)
[2020-09-20] MEDS: VERAPAMIL SR 240 MG TABLET.ER PO SCH (08:36)
[2020-09-20] MEDS: PANTOPRAZOLE 40 MG/10 ML VIAL IVP SCH (08:36)
[2020-09-20] MEDS: ACETAMINOPHEN TAB 325 MG TAB PO PRN (09:35)
[2020-09-20 11:11] LABS: Glucose,Whole Blood 117 mg/dL (75-99)
[2020-09-20] MEDS: prednisoLONE ACETATE 1% OPHTH DROPS 5 ML BTL RIGHT EYE SCH (12:18)
[2020-09-20] MEDS: BRIMONIDINE TARTRATE 0.2% DROPS 5 ML BTL RIGHT EYE SCH (12:18)
--- NOTE | 2020-09-20 13:43 | P.DS ---
Providers Date of admission: 09/17/20 14:56 Expected date of discharge: 09/20/20 Attending physician: Korina Carranza DO Consults: 09/16/20 16:43 Consult Physician Routine Consulting Provider: Iraj Michaud Consult Reason/Comments: ms with pain Do you want consulting provider notified?: Yes Primary care physician: Stated None Hospital Course: HPI: 55-year-old woman with medical history of MS, C3 to T2 spinal fusion with radicular symptoms, GERD, CHAR presented with back and chest pressure. Patient says that she's had some back pressure, chest pressure for the last 2 weeks. She also reports tingling in the ulnar aspect of both hands bilaterally, which is chronic, however, she feels is getting worse. She reports that she does not take any medications for multiple sclerosis, does not agree with her neurologist regarding management and is in search of a new one at present. Regarding her present symptoms, she fears that this may be related to multiple sclerosis flare, which prompted her presentation to the emergency room. Otherwise, she denies symptoms of fevers, chills, nausea, vomiting, chest pain, palpitations, syncope, presyncopal, cough, dyspnea, abdominal pain constipation, diarrhea, dysuria, dyschezia, weakness of extremities. In the emergency room, patient is afebrile, 161/82, heart rate 67, 99% on room air. CBC is unremarkable. PTT is mildly elevated at 21.2, creatinine mildly elevated at 1.25. AST, ALT are 43, 27 respectively with mild elevation of alk phos at 128. Troponin is otherwise negative. Chest x-ray did not demonstrate any acute pulmonary disease. Computed tomography scan showed age-related atrophy without acute intracranial process. EKG was normal sinus rhythm. Hospital Course: MS Hug Phenomenon Multiple Sclerosis Flare History of C3 to T2 spinal fusion Bilateral C3 radiculopathy GERD without esophagitis CHAR Mood disorder Patient was admitted to the hospital, with telemetry. Neurology consult on patient and determined patient was having an MS flare with hug phenomenon. She was started on IV steroids, which was continued for 4 days. Patient dem onstrated symptomatic improvement by the fourth day, back to her baseline. She was considered briefly for PT/OT at a residential facility, however, she preferred to go home with PT/OT. She indicated she would find herself an outpatient MS specialist upon discharge. Notably, she declined any imaging with MRI during her hospitalization. Brief consideration of neuromuscular disease such as myasthenia was given an acetylcholine receptor antibody is pending, however, given her clinical improvement with steroids, IV low suspicion of this being positive. I spent 35 minutes coordinating this complex discharge. Assessment: Gen: awake, alert HEENT: normocephalic, atraumatic, good hearing acuity, moist mucous membranes Resp: good air exchange, breathing comfortably with no accessory muscle use, clear to auscultation bilaterally without crackles CVS: good distal perfusion x 4, regular rate and rhythm without murmurs GI: soft, NTTP, ND, appropriate bowel sounds : no SPT, no CVAT, santa catheter not present MSK: no pitting edema, no clubbing, surgical scar from cervical to thoracic spine, lumbar spine, no perivertebral muscle spasm Neuro: Motor strength is 5 out of 5 in all 4 extremities, numbness on the ulnar aspect of bilateral hands Psych: cooperative, euthymic mood Patient Condition at Discharge: Good Plan - Discharge Summary Discharge Rx Participant: No New Discharge Prescriptions: New Acetaminophen Tab [Tylenol] 650 mg PO Q6HR PRN tab PRN Reason: Mild Pain Or Fever > 100.5 Cholecalciferol [Vitamin D3 (25 Mcg = 1000 Iu)] 50 mcg PO DAILY tablet Continue diazePAM [Diazepam] 10 mg PO BID Verapamil HCl [Verapamil ER] 240 mg PO BID Citalopram Hydrobromide [Citalopram HBr] 40 mg PO HS Prednisolone Acetate/Pf [Prednisolone Acet 1% Eye Drop] 1 drop RIGHT EYE DAILY@1200 Omeprazole [PriLOSEC] 20 mg PO DAILY Ibuprofen [Motrin] 800 mg PO TID PRN PRN Reason: Pain Brimonidine Tartrate [Alphagan P 0.2% Ophth Soln] 1 drops RIGHT EYE DAILY@1200 Levothyroxine Sodium [Synthroid] 100 mcg PO DAILY Discharge Medication List diazePAM [Diazepam] 10 mg PO BID 05/08/15 [History] Verapamil HCl [Verapamil ER] 240 mg PO BID 04/26/16 [History] Citalopram Hydrobromide [Citalopram HBr] 40 mg PO HS 08/24/18 [History] Omeprazole [PriLOSEC] 20 mg PO DAILY 01/15/19 [History] Prednisolone Acetate/Pf [Prednisolone Acet 1% Eye Drop] 1 drop RIGHT EYE DAILY@1200 01/15/19 [History] Brimonidine Tartrate [Alphagan P 0.2% Ophth Soln] 1 drops RIGHT EYE DAILY@1200 09/16/20 [History] Ibuprofen [Motrin] 800 mg PO TID PRN 09/16/20 [History] Levothyroxine Sodium [Synthroid] 100 mcg PO DAILY 09/16/20 [History] Acetaminophen Tab [Tylenol] 650 mg PO Q6HR PRN tab 09/20/20 [Rx] Cholecalciferol [Vitamin D3 (25 Mcg = 1000 Iu)] 50 mcg PO DAILY tablet 09/20/20 [Rx] Follow up Appointment(s)/Referral(s): [facility], [NON-STAFF] - None,Stated [Primary Care Provider] - 1-2 days Activity/Diet/Wound Care/Special Instructions: If you change your mind when you get home and still want rehab at [facility] give them a call and they can get you in right from home. [phone] Discharge Disposition: HOME WITH HOME HEALTH SERVICES
== END 2020-09-20 14:39 | disposition home health service (06) | DRG 60 ==
LOC: EC 12:53 → 6PED 16:33 → 5NMEDONC 09-17 14:01 → OBSVTOIN 09-17 14:56
PROVIDERS: ADMIT Internal Medicine; ATTEND Internal Medicine
DX: G35 Multiple sclerosis (principal); K21.00 Gastro-esophageal reflux disease with esophagitis, without bleeding; I10 Essential (primary) hypertension; G47.33 Obstructive sleep apnea (adult) (pediatric); Z98.1 Arthrodesis status; G56.23 Lesion of ulnar nerve, bilateral upper limbs; M54.12 Radiculopathy, cervical region; R32 Unspecified urinary incontinence; F17.200 Nicotine dependence, unspecified, uncomplicated; F32.9 Major depressive disorder, single episode, unspecified; F41.9 Anxiety disorder, unspecified; Z20.822 Contact with and (suspected) exposure to COVID-19
CPT/HCPCS: 36415; 70450; 71046; 80048; 80053; 83519; 83735; 84484; 85025; 85610; 85730; 87635; 93005; 99285

== ENCOUNTER 2020-10-08 | Inpatient (IN) | payer MEDICARE | END 2020-10-11 13:53 | disposition home or self-care (01) | DRG 59 | PROVIDERS: ADMIT Internal Medicine | DX: G35 Multiple sclerosis (principal); N39.0 Urinary tract infection, site not specified; K21.9 Gastro-esophageal reflux disease without esophagitis; G47.33 Obstructive sleep apnea (adult) (pediatric); F32.9 Major depressive disorder, single episode, unspecified; F41.9 Anxiety disorder, unspecified; F17.200 Nicotine dependence, unspecified, uncomplicated; M50.31 Other cervical disc degeneration, high cervical region; M50.33 Other cervical disc degeneration, cervicothoracic region; M51.34 Other intervertebral disc degeneration, thoracic region; Z98.1 Arthrodesis status; Z79.890 Hormone replacement therapy; E03.9 Hypothyroidism, unspecified; I10 Essential (primary) hypertension; B96.20 Unspecified Escherichia coli [E. coli] as the cause of diseases classified elsewhere; N39.498 Other specified urinary incontinence | CPT/HCPCS: 36415; 71046; 72156; 72157; 80053; 81001; 82550; 83735; 84484; 85025; 85027; 87040; 87077; 87086; 87186; 87635; 93005; 96374; 99285 ==

== ENCOUNTER 2020-11-23 13:44 | Emergency (ER) | payer MEDICARE ==
[2020-11-23 13:47] VITALS: RESP 16; TEMP 98.2
--- NOTE | 2020-11-23 13:57 | ED ---
General Adult HPI - General Chief complaint: Extremity Injury, Lower Stated complaint: L Ankle Pain Time Seen by Provider: 11/23/20 13:49 Source: patient Mode of arrival: wheelchair Limitations: no limitations - History of Present Illness Initial comments: Dictation was produced using [employer] dictation software. please excuse any grammatical, word or spelling errors. Chief Complaint: 55-year-old male presents with left ankle pain History of Present Illness: 35-year-old female she was walking her dog when she stepped with her left foot on an uneven surface causing an inversion injury. She has history of ankle fractures to that foot in the past. The ROS documented in this emergency department record has been reviewed and confirmed by me. Those systems with pertinent positive or negative responses have been documented in the HPI. All other systems are other negative and/or noncontributory. PHYSICAL EXAM: General Impression: Alert and oriented x3, not in acute distress HEENT: Normocephalic atraumatic, extra-ocular movements intact, pupils equal and reactive to light bilaterally, mucous membranes moist. Cardiovascular: Heart regular rate and rhythm Chest: Able to complete full sentences, no retractions, no tachypnea Musculoskeletal: Pulses present and equal in all extremities, no peripheral edema Left ankle: Swelling over the lateral malleolus Motor: no focal deficits noted Neurological: CN II-XII grossly intact, no focal motor or sensory deficits noted Skin: Intact with no visualized rashes Psych: Normal affect and mood ED course: 55-year-old female presents with ankle injury 2 hours prior to arrival. Vital signs upon arrival are within acceptable limits. X-rays unremarkable. Patient be discharged. Clinical presentation consistent with ankle sprain. Patient reevaluated bedside found to be stable medical condition. Patient told to follow up with primary care doctor. She is instructed to get a [facility] x-ray in 7 days if she has any pain. Patient agreeable plan. - Related Data Home Medications Medication Instructions Recorded Confirmed diazePAM [Diazepam] 10 mg PO BID PRN 05/08/15 11/23/20 Verapamil HCl [Verapamil ER] 240 mg PO BID 04/26/16 11/23/20 Citalopram Hydrobromide 40 mg PO HS 08/24/18 11/23/20 [Citalopram HBr] Omeprazole [PriLOSEC] 20 mg PO DAILY 01/15/19 11/23/20 Prednisolone Acetate/Pf 1 drop RIGHT EYE DAILY@1200 01/15/19 11/23/20 [Prednisolone Acet 1% Eye Drop] Brimonidine Tartrate [Alphagan P 1 drops RIGHT EYE DAILY@1200 09/16/20 11/23/20 0.2% Ophth Soln] Ibuprofen [Motrin] 800 mg PO TID PRN 09/16/20 11/23/20 Cholecalciferol [Vitamin D3 (25 25 mcg PO DAILY 11/23/20 11/23/20 Mcg = 1000 Iu)] Levothyroxine Sodium [Synthroid] 112 mcg PO DAILY 11/23/20 11/23/20 Allergies Allergy/AdvReac Type Severity Reaction Status Date / Time clindamycin Allergy Rash/Hives Verified 11/23/20 13:47 venom-honey bee Allergy Anaphylaxis Verified 11/23/20 13:47 [bee venom (honey bee)] latex AdvReac Itching Verified 11/23/20 13:47 Review of Systems ROS Statement: Those systems with pertinent positive or pertinent negative responses have been documented in the HPI. ROS Other: All systems not noted in ROS Statement are negative. Past Medical History Past Medical History: GERD/Reflux, Hypertension, Sleep Apnea/CPAP/BIPAP, Thyroid Disorder Additional Past Medical History / Comment(s): MS [place] ago [place] but now MRI showed no MS, Behcet's disease. Cdiff -2014 History of Any Multi-Drug Resistant Organisms: None Reported Date of last positivie culture/infection: 2014 MDRO Source:: stool Past Surgical History: Back Surgery, Orthopedic Surgery, Tonsillectomy Additional Past Surgical History / Comment(s): neck surgery, cyst removed from wrist, urethral blockage repair, laser eye surgery on right eye twice, screws and plates in upper jaw to sinus area & some in the lower jaw. Back surgery Lumbar area, neck surgery involved removing bones and shortening her neck. Has problems with intubation because of this. Past Anesthesia/Blood Transfusion Reactions: Previous Problems w/ Anesthesia Additional Past Anesthesia/Blood Transfusion Reaction / Comment(s): Neck area surgically shortened and respiratory problems when being intubated. States is very concerned about being intubated because of past respiratory problems. Past Psychological History: Anxiety, Depression Smoking Status: Current every day smoker Past Alcohol Use History: None Reported Past Drug Use History: Marijuana - Past Family History Mother Family Medical History: Unable to Obtain Additional Family Medical History / Comment(s): Patient was adopted and does not know family hx. General Exam Limitations: no limitations Course Vital Signs 11/23/20 11/23/20 13:46 13:48 Temperature 98.2 F Pulse Rate 78 Respiratory 16 Rate Blood Pressure 157/80 O2 Sat by Pulse 97 Oximetry Disposition Clinical Impression: Ankle sprain Disposition: HOME SELF-CARE Condition: Good Instructions (If sedation given, give patient instructions): Ankle Sprain (ED) Is patient prescribed a controlled substance at d/c from ED?: No Referrals: Kwan Graham MD [Primary Care Provider] - 1-2 days
--- NOTE | 2020-11-23 14:25 | XR ---
EXAMINATION TYPE: XR ankle complete LT DATE OF EXAM: 11/23/2020 COMPARISON: 04/26/2016 HISTORY: Pain FINDINGS: Three views of the ankle demonstrate the ankle mortise to be intact and symmetric. The joint spaces are preserved. The osseous structures are intact. Hypertrophic change along the lateral malleolus IMPRESSION: 1. No definite acute fracture or dislocation, if symptoms persist follow-up study in 7 to 10 days wou ld be suggested. And lateral talar eminence. 2. There is a prominent bony density along the lateral margin of the talus just inferior to the later al malleolus which is compatible with remote fracture as noted by prior x-ray.
[2020-11-23 15:30] VITALS: BP 125/77; PULSE 70
== END 2020-11-23 15:30 | disposition home or self-care (01) ==
LOC: EC 13:44
DX: S93.402A Sprain of unspecified ligament of left ankle, initial encounter (principal); F17.200 Nicotine dependence, unspecified, uncomplicated; I10 Essential (primary) hypertension; E07.9 Disorder of thyroid, unspecified; K21.9 Gastro-esophageal reflux disease without esophagitis; Z79.899 Other long term (current) drug therapy; Z88.1 Allergy status to other antibiotic agents; Z91.040 Latex allergy status; Z91.030 Bee allergy status; Z79.890 Hormone replacement therapy; W01.0XXA Fall on same level from slipping, tripping and stumbling without subsequent striking against object, initial encounter; Y93.K1 Activity, walking an animal
CPT/HCPCS: 99283

== ENCOUNTER → 2021-01-23 | Outpatient (CLI) | payer MEDICARE ==
--- NOTE | 2021-01-23 16:00 | MR ---
EXAMINATION TYPE: MR brain wo/w con DATE OF EXAM: 01/23/2021 COMPARISON: MRI brain 03/15/2015 HISTORY: MS. Numbness and weakness left and right side. Follow up Study TECHNIQUE: Multiplanar, multisequence images of the brain and brainstem is performed without and with IV contras t, utilizing 8.5 mL intravenous Gadavist . FINDINGS: Diffusion weighted images demonstrate no evidence of a recent infarct or other diffusion ab normality. There is no extra-axial fluid collection. Left frontal hyperintensity seen on axial image #25 is more conspicuous on today's exam measures approximately 5 mm. There has been development of 2 -3 hyperintensities on the left within the external capsule region, possible obscured appearance on p rior exam, these lesions are less than 5 mm. The largest lesion is on the right on axial image 20 manuel ng the external capsule measuring 8 mm in greatest dimension. The periventricular hyperintensities ad jacent to the posterior horn of the right lateral ventricle on axial image #21 are likely stable. The re is some scattered hyperintensity within the su shows some increased conspicuity as compared to p rior exam. The ventricular system and cisternal spaces are normal in size and appearance. The brain volume is age appropriate. Midline structures demonstrate normal morphology. The craniocervical junction appears within normal limits. Post contrast images demonstrate no abnormal enhancement. The dural venous sinuses appear pa tent. The visualized sinuses are remarkable for some inflammatory change in the ethmoid air cells, ri ght maxillary sinus and the globes are intact. There is inflammatory change within the right mastoid greater than left similar to prior exam. IMPRESSION: There has been some progression of approximately 3-5 lesions compared to prior exam as de scribed within the white matter, there is no abnormal enhancement present
== END | disposition home or self-care (01) ==
LOC: RADMRIMAIN 14:56
PROVIDERS: ATTEND Psychiatry & Neurology Neurology
DX: G35 Multiple sclerosis (principal)
CPT/HCPCS: 70553; A9585

== ENCOUNTER → 2021-06-01 | Outpatient (CLI) | payer MEDICARE ==
--- NOTE | 2021-06-01 10:23 | FL ---
EXAMINATION TYPE: FL barium swallow DATE OF EXAM: 06/01/2021 CLINICAL INDICATION: 55-year-old female history of multiple sclerosis and dysphagia. Complains of ref lux and choking episodes. COMPARISON: None Total Fluoroscopy Time: 2 minutes 33 seconds 50 images obtained. FINDINGS: The swallowing mechanism is normal. There are post surgical changes of C3-C6 posterior cervical fusio n and C5-C7 ACDF. Screws along the bilateral mandible related to prior surgery. On the frontal swallowing images, there seems to be some leftward deviation of the contrast bolus at the level of the cervical esophagus. No penetration or aspiration is seen. No abnormal luminal narrow ing. The thoracic portion has a normal course and caliber. Mild to moderate tertiary peristaltic waves are demonstrated. The mucosa is normal and no persistent filling defect is encountered. There is a small sliding hiatal hernia. Gastroesophageal reflux could not be elicited during the cour se of the exam. IMPRESSION: 1. C3-C7 cervical fusion changes. There is slight leftward bowing of the cervical esophagus that coul d be chronic postsurgical change. Correlate with physical exam findings. Recommend thyroid ultrasound to assess for any underlying nodules or thyromegaly. 2. No penetration or aspiration identified. If the patient's choking episodes continue to be a proble m, consider speech pathology evaluation. 3. Mild esophageal dysmotility, likely age related change. 4. Small sliding hiatal hernia. Gastroesophageal reflux not seen during the course of the exam.
== END | disposition home or self-care (01) ==
LOC: RADUSWWP 08:50
PROVIDERS: ATTEND Psychiatry & Neurology Neurology
DX: G35 Multiple sclerosis (principal); R13.10 Dysphagia, unspecified; K44.9 Diaphragmatic hernia without obstruction or gangrene
CPT/HCPCS: 74220

== ENCOUNTER → 2021-06-11 | Outpatient (CLI) | payer MEDICARE ==
[2021-06-11 15:33] LABS: Basophils # (A) 0.05 X 10*3/uL (0.00-0.10); Basophils % (A) 0.7 %; Eosinophils # (A) 0.15 X 10*3/uL (0.04-0.35); HCT 34.7 % (37.2-46.3); HGB 11.2 g/dL (12.0-15.0); Immature Grans, Automated 0.3 %; Lymphocytes # (A) 1.02 X 10*3/uL (0.90-5.00); Lymphocytes % (A) 13.6 %; MCH 30.6 pg (27.0-32.0); MCHC 32.3 g/dL (32.0-37.0); MCV 94.8 fL (80.0-97.0); Mean Platelet Volume 9.6 fL (9.5-12.2); Monocytes # (A) 0.48 X 10*3/uL (0.20-1.00); Monocytes % (A) 6.4 %; NRBC Per 100 WBC 0 /100 WBCS (0.0-0.0); Neutrophils # (A) 5.76 X 10*3/uL (1.80-7.70); Platelet Count 330 X 10*3/uL (140-440); RBC 3.66 X 10*6/uL (4.10-5.20); RDW 14.6 % (11.5-14.5); WBC 7.48 X 10*3/uL (4.50-10.00)
[2021-06-11 16:38] LABS: Hepatitis B Surface AB- Quant 3.5 mIU/mL; Hepatitis B Surface Antibody Nonreactive (Nonreactive)
[2021-06-11 16:40] LABS: Hepatitis B Surface Antigen Nonreactive (Nonreactive); Hepatitis C IgG Antibody Nonreactive (Nonreactive)
[2021-06-11 16:58] LABS: Ceruloplasmin 22.6 mg/dL (20.0-60.0)
[2021-06-11 17:47] LABS: Immunoglobulin M 91.9 mg/dL (40.0-280.0)
[2021-06-11 17:48] LABS: Immunoglobulin A <50.0 mg/dL (60.0-350.0)
[2021-06-11 17:53] LABS: ALT 41 U/L (8-44); AST 45 U/L (13-35); African American GFR (CKD) 88.6 (60.0-200.0); Albumin 4.5 g/dL (3.8-4.9); Albumin/Globulin Ratio 2.37 (1.60-3.17); Alkaline Phosphatase 174 U/L (41-126); BUN/Creat Ratio 18.21 Ratio (12.00-20.00); Blood Urea Nitrogen 15.5 mg/dL (9.0-27.0); Calcium 9.4 mg/dL (8.7-10.3); Carbon Dioxide 22.7 mmol/L (20.0-27.5); Chloride 106 mmol/L (96-109); Globulin 1.9 g/dL (1.6-3.3); Glucose 69 mg/dL (70-110); Non-African American GFR(CKD) 76.5 (60.0-200.0); Potassium 4.2 mmol/L (3.5-5.5); Sodium 141 mmol/L (135-145); Total Bilirubin <0.15 mg/dL (0.30-1.20); Total Protein 6.3 g/dL (6.2-8.2)
[2021-06-12 14:28] LABS: Zinc, Serum 144 ug/dL (60-130)
[2021-06-13 00:56] LABS: Varicella zoster IgG Result 4.7 AI
[2021-06-13 01:00] LABS: HIV 2 AB Non-Reactive (Non-Reactive); HIV AB P24 Non-Reactive (Non-Reactive); HIV P24 AG Non-Reactive (Non-Reactive)
== END | disposition home or self-care (01) ==
LOC: LABWHC1 07:49
PROVIDERS: ATTEND Psychiatry & Neurology Neurology
DX: G35 Multiple sclerosis (principal)
CPT/HCPCS: 36415; 80053; 82390; 82525; 82607; 82746; 82784; 84446; 84630; 85025; 86480; 86704; 86706; 86787; 86803; 87340; 87390

== ENCOUNTER → 2021-06-19 | Outpatient (CLI) | payer MEDICARE ==
--- NOTE | 2021-06-19 19:59 | US ---
EXAMINATION TYPE: US thyroid st tissue head/neck DATE OF EXAM: 06/19/2021 COMPARISON: CT 04/22/2017 CLINICAL HISTORY: R13.10 DYSPHAGIA, UNSPECIFIED. Dysphagia, on thyroid meds x 20 years, patient state s no thyroid surgery or FNA Scanned bilateral neck, no thyroid tissue seen at this time, no evident thyroid nodule Bilateral neck scanned, no evidence of lymphadenopathy. IMPRESSION: Findings may be customer support representative of marked thyroid atrophy
== END | disposition home or self-care (01) ==
LOC: RADUSWWP 16:11
PROVIDERS: ATTEND Family Medicine
DX: R13.10 Dysphagia, unspecified (principal)
CPT/HCPCS: 76536

== ENCOUNTER → 2021-10-20 | Outpatient (CLI) | payer MEDICARE ==
[2021-10-20 18:00] LABS: Basophils # (A) 0.03 X 10*3/uL (0.00-0.10); Basophils % (A) 0.5 %; Eosinophils # (A) 0.14 X 10*3/uL (0.04-0.35); Eosinophils % (A) 2.5 %; HCT 35.6 % (37.2-46.3); HGB 11.4 g/dL (12.0-15.0); Immature Grans, Automated 0.4 %; Lymphocytes # (A) 1.38 X 10*3/uL (0.90-5.00); Lymphocytes % (A) 24.3 %; MCH 30.2 pg (27.0-32.0); MCV 94.2 fL (80.0-97.0); Mean Platelet Volume 10.1 fL (9.5-12.2); Monocytes # (A) 0.32 X 10*3/uL (0.20-1.00); Monocytes % (A) 5.6 %; NRBC Per 100 WBC 0 /100 WBCS (0.0-0.0); Neutrophils % (A) 66.7 %; Platelet Count 356 X 10*3/uL (140-440); RBC 3.78 X 10*6/uL (4.10-5.20); RDW 13.2 % (11.5-14.5); WBC 5.69 X 10*3/uL (4.50-10.00)
[2021-10-20 18:10] LABS: % Iron Saturation 12.27 (12.00-45.00); ALT 25 U/L (8-44); AST 17 U/L (13-35); African American GFR (CKD) 72.4 (60.0-200.0); Albumin 4.7 g/dL (3.8-4.9); Albumin/Globulin Ratio 1.96 (1.60-3.17); Alkaline Phosphatase 195 U/L (41-126); Calcium 9.6 mg/dL (8.7-10.3); Carbon Dioxide 23.3 mmol/L (20.0-27.5); Chloride 105 mmol/L (96-109); Globulin 2.4 g/dL (1.6-3.3); Glucose 101 mg/dL (70-110); Iron 46 ug/dL (50-170); Magnesium 1.9 mg/dL (1.5-2.4); Non-African American GFR(CKD) 62.5 (60.0-200.0); Phosphorus 4.4 mg/dL (2.4-5.1); Sodium 142 mmol/L (135-145); Total Bilirubin <0.15 mg/dL (0.30-1.20); Total Iron Binding Capacity 377 ug/dL (228-460); Total Protein 7.1 g/dL (6.2-8.2); Uric Acid 5.9 mg/dL (2.9-7.7)
[2021-10-20 18:30] LABS: Ferritin 45.3 ng/mL (10.0-291.0)
[2021-10-20 19:22] LABS: Appearance,Urine Cloudy (Clear); Bilirubin,Urine Small (Negative); Blood,Urine Trace (Negative); Color,Urine Dark Yellow (Yellow); Ketones,Urine Trace mg/dL (Negative); Nitrite,Urine Positive (Negative); PH, Urine 5.5 (5.0-8.0); Specific Gravity,Urine 1.029 (1.001-1.030)
[2021-10-20 19:29] LABS: Bacteria,Urine 3+ /HPF (None Seen)
== END | disposition home or self-care (01) ==
LOC: LABWHC1 14:10
PROVIDERS: ATTEND Internal Medicine
DX: N18.2 Chronic kidney disease, stage 2 (mild) (principal); D64.9 Anemia, unspecified; N39.0 Urinary tract infection, site not specified; E21.3 Hyperparathyroidism, unspecified; E55.9 Vitamin D deficiency, unspecified; M10.9 Gout, unspecified
CPT/HCPCS: 36415; 80053; 81001; 82306; 82728; 83540; 83550; 83735; 83970; 84100; 84550; 85025

== ENCOUNTER → 2022-04-24 | Outpatient (CLI) | payer MEDICARE ==
--- NOTE | 2022-04-24 09:50 | MR ---
EXAMINATION TYPE: MR brain/cspine wo/w DATE OF EXAM: 04/24/2022 9:24 AM CLINICAL INDICATION:Female, 56 years old with history of G35 MS; COMPARISON: 10/10/2020 and 01/24/2020 221 TECHNIQUE: Multiplanar, multisequence images of the brain and brainstem is performed. Multi planar, multi sequence imaging was performed utilizing: T1-weighted, T2-weighted, and turbo inv ersion recovery imaging of the cervical spine. MR IV Contrast: 6 cc Gadavist FINDINGS: BRAIN: Scattered white matter lesions are not significantly changed from prior. No evidence of enhancement w ithin these lesions. Diffusion weighted images demonstrate no evidence of a recent infarct or other diffusion abnormality. There is no extra-axial fluid collection or significant white matter signal abnormality. The ventr icular system and cisternal spaces are normal in size and appearance. The brain volume is age approp riate. Midline structures demonstrate normal morphology. The craniocervical junction appears within normal limits. Post contrast images demonstrate no abnormal enhancement. The dural venous sinuses appear pa tent. High T2 signal within the mastoid air cells bilaterally. Mucosal thickening of the paranasal si nuses. C-SPINE: Alignment: The cervical vertebral bodies have preserved heights. Postsurgical alignment with increase d kyphosis compared to prior. Bones: Surgical changes to the spine with at C3-C7 which limits evaluation. Multilevel degenerative d isc disease is noted and most pronounced at the C5-C7 and C7-T1 vertebral levels. Cord: Height T2 signal seen within the spinal cord at the level of C5 is similar to prior. No new sig nal lesions in the spine is identified. No obvious enhancement some areas of the cord are limited fro m C5 through C7 due to fixation hardware. Discs: Postsurgical changes at C5 C7. Disc space narrowing at C7-T1 has progressively worsened. C2-C3: Limited evaluation of the neural foramen secondary to metallic artifact. No significant disc p athology. The spinal canal is patent. No neural foraminal stenosis. C3-C4: Limited evaluation of the neural foramen secondary to metallic artifact. No significant disc p athology. The spinal canal is patent. Bilateral facet and uncovertebral joint arthropathy are presen t with mild bilateral neural foraminal stenosis. C4-C5: Limited evaluation of the neural foramen secondary to metallic artifact. No significant disc p athology. The spinal canal is patent. Bilateral facet and uncovertebral joint arthropathy are presen t with mild bilateral neural foraminal stenosis. C5-C6: Limited evaluation of the neural foramen secondary to metallic artifact. No significant disc p athology. The spinal canal is patent. No gross neural foraminal stenosis. C6-C7: Limited evaluation of the neural foramen secondary to metallic artifact. No significant disc p athology. The spinal canal is patent. No gross neural foraminal stenosis. C7-T1: Moderate to severe spinal canal stenosis secondary to disc bulge and facet joint arthropathy. IMPRESSION: Brain: 1. No evidence for active demyelination. Stable white matter lesions within the brain. No evidence o f intracranial mass, acute/subacute infarct, or abnormal enhancement. 2. Trace bilateral mastoid air cell effusions, similar to prior. C-spine: 1. Postsurgical changes to the spine with slightly increased kyphotic alignment when comparing to pr ior. 2. Stable abnormal cord signal at C5 compared to prior. No new cord signal lesions. 3. New moderate to severe C7-T1 spinal canal stenosis secondary to degeneration/osteophytes. No abno rmal cord signal abnormality identified at this level.
== END | disposition home or self-care (01) ==
LOC: RADMRIMAIN 08:21
PROVIDERS: ATTEND Psychiatry & Neurology Neurology
DX: G35 Multiple sclerosis (principal); M48.02 Spinal stenosis, cervical region; M40.202 Unspecified kyphosis, cervical region; J34.89 Other specified disorders of nose and nasal sinuses
CPT/HCPCS: 70553; 72156; A9585

== ENCOUNTER → 2022-07-23 | Outpatient (CLI) | payer MEDICARE, OTHER ==
--- NOTE | 2022-07-23 12:01 | US ---
EXAMINATION TYPE: US carotid duplex BILAT DATE OF EXAM: 07/23/2022 COMPARISON: NONE CLINICAL HISTORY: I65.29 OCCLUSION AND STENOSIS OF CAROTID ARTERY. Current smoker. Hx hypertension. TECHNIQUE: Carotid duplex ultrasound examination. Indirect Doppler criteria was utilized. FINDINGS: EXAM MEASUREMENTS: RIGHT: Peak Systolic Velocity (PSV) cm/sec ----- Right CCA: 101.7 ----- Right ICA: 91.9 ----- Right ECA: 173.3 ICA/CCA ratio: 0.9 RIGHT: End Diastole cm/sec ----- Right CCA: 40.9 ----- Right ICA: 34.7 ----- Right ECA: 38.6 LEFT: Peak Systolic Velocity (PSV) cm/sec ----- Left CCA: 98.2 ----- Left ICA: 100.4 ----- Left ECA: 123.7 ICA/CCA ratio: 1.0 LEFT: End Diastole cm/sec ----- Left CCA: 32.8 ----- Left ICA: 37.0 ----- Left ECA: 26.7 VERTEBRALS (direction of flow): Right Vertebral: Antegrade Left Vertebral: Unable to visualize Rhythm: STEEL ESTIMATOR NOTES: Unable to visualize left vertebral. Elevated velocity within right ECA. Plaque seen within bilateral bulbs and prox ICA. IMPRESSION: No evidence for hemodynamically significant stenosis. Criteria for Assigning % of Stenosis / Diameter reduction (Estimation based on the indirect measurements of the internal carotid artery velocities (ICA PSV). 1. Normal (no stenosis)=ICA PSV < 125 cm/s: ratio < 2.0: ICA EDV<40 cm/s. 2. Less than 50% stenosis=ICA PSV < 125 cm/s: ratio < 2.0: ICA EDV<40 cm/s. 3. 50 to 69% stenosis=ICA PSV of 125 to 230 cm/s: ration 2.0 ? 4.0: ICA EDV 40-100 cm/s. 4. Greater than 70% stenosis to near occlusion= ICA PSV > 230 cm/s: ratio > 4.0: ICA EDV > 100 cm/s. 5. Near occlusion= ICA PSV velocities may be low or undetectable: variable ratio and ICA EDV. 6. Total occlusion=unable to detect flow.
== END | disposition home or self-care (01) ==
LOC: RADUSWWP 10:55
PROVIDERS: ATTEND Family Medicine
DX: I65.23 Occlusion and stenosis of bilateral carotid arteries (principal); I10 Essential (primary) hypertension; F17.210 Nicotine dependence, cigarettes, uncomplicated
CPT/HCPCS: 93880

== ENCOUNTER → 2022-09-30 | Outpatient (CLI) | payer MEDICARE, OTHER ==
--- NOTE | 2022-10-01 16:42 | MR ---
EXAMINATION TYPE: MR brain wo/w con DATE OF EXAM: 09/30/2022 COMPARISON: 01/23/2021 HISTORY: 57-year-old female G35, MS. Follow up TECHNIQUE: Multiplanar, multisequence images of the brain and brainstem is performed without and with IV contrast, utilizing 7.5 mL intravenous Gadavist gadolinium contrast is administered intravenously . Demyelinating disease protocol with additional Sagittal Flair sequence performed. FINDINGS: T2 Lesions Present : Yes Approximate Number of Lesions: 5-10 in the left cerebral hemisphere and 5 or less in the right cerebr al hemisphere. Additional foci within the bilateral paramedian su. Locations Identified : Periventricular, subinsular, and subcortical. Paramedian su. Size of Reference Lesion(s): 1. 7 mm left frontal subcortical region, axial image 22. (Increased from 5 mm, previously). 2 10 x 4 mm anterior right subinsular region, axial image 16. (Increased from 8 mm, previously). Enhancing Lesion(s) Present: No T1 Hypointense Lesion(s) Present: No Change from Prior: Increase in size of a few scattered lesions. Diffusion weighted images demonstrate no evidence of a recent infarct or other diffusion abnormality. There is no worrisome extra-axial fluid collection. The ventricular system and cisternal spaces ar e normal in size and appearance. The brain volume is age appropriate. Midline structures demonstrate normal morphology. The craniocervical junction appears within normal limits. Post contrast images demonstrate no abnormal enhancement. The dural venous sinuses appear pa tent. Moderate to severe mucosal thickening throughout the ethmoid air cells. Some possible from the layeri ng fluid in the right maxillary sinus. Trapped fluid in the right greater than left mastoid air cells . IMPRESSION: 1. Mild scattered burden of T2 bright white matter change may be in keeping with patient's provided h istory of MS. A few scattered lesions show increasing size. No associated T1 hypointensity or enhance ment to suggest active demyelination. 2. No acute intracranial abnormality seen. 3. Moderate to severe chronic ethmoid sinus disease. Correlate to exclude acute right maxillary sinus itis. 4. Additionally, there is some fluid within the right greater than left mastoid air cells. Correlate for any mastoid pain to exclude mastoiditis.
== END | disposition home or self-care (01) ==
LOC: RADMRIMAIN 11:26
PROVIDERS: ATTEND Psychiatry & Neurology Neurology
DX: G35 Multiple sclerosis (principal); J32.2 Chronic ethmoidal sinusitis
CPT/HCPCS: 70553; A9585

== ENCOUNTER 2023-03-05 10:57 | Observation (INO) | payer MEDICARE, OTHER ==
--- NOTE | 2023-03-05 11:35 | ED ---
Neck Injury/Pain HPI - General Chief Complaint: Neck Pain/Injury Stated Complaint: Back Pain Time Seen by Provider: 03/05/23 11:09 Source: patient, family, RN notes reviewed Mode of arrival: ambulatory Limitations: no limitations - History of Present Illness Initial Comments: Patient is a 49-year-old female presented ER with chief complaint of mid back p ain. Patient has a past history significant for MS. Patient states for the past 3 days she's been having increasing pain in her mid back with radiation to her chest. Patient states her last back surgery was in July of this year where she had a laminectomy on her neck. Patient reports multiple back surgeries of her neck and lumbar spine. Patient reports her pain is decreasing her ability to complete ADLs and she is having associated shortness of breath. She admits to urinary incontinence in which she is unable to hold her bladder to make it to the bathroom. She feels this is from her MS. She denies any recent traumas/injuries or new onset paresthesias. Patient denies fevers, chills, nig htsweats, abdominal pain, or peripheral edema. - Related Data Home Medications Medication Instructions Recorded Confirmed diazePAM 10 mg PO BID PRN 05/08/15 11/23/20 Verapamil HCl [Calan Sr] 240 mg PO BID 04/26/16 11/23/20 Citalopram Hydrobromide 40 mg PO HS 08/24/18 11/23/20 [Citalopram HBr] Omeprazole [PriLOSEC] 20 mg PO DAILY 01/15/19 11/23/20 Prednisolone Acetate/Pf 1 drop RIGHT EYE DAILY@1200 01/15/19 11/23/20 [Prednisolone Acet 1% Eye Drop] Brimonidine Tartrate [Alphagan P 1 drops RIGHT EYE DAILY@1200 09/16/20 11/23/20 0.2% Ophth Soln] Levothyroxine Sodium [Synthroid] 112 mcg PO DAILY 11/23/20 11/23/20 Dextroamphetamine/Amphetamine 7.5 mg PO DAILY@1500 03/05/23 03/05/23 [Adderall] Dextroamphetamine/Amphetamine 10 mg PO BID@0800,1200 03/05/23 03/05/23 [Adderall] Ergocalciferol [Vitamin D2 (1250 1,250 mcg PO Q28D 03/05/23 03/05/23 Mcg = 99501 Iu)] Folic Acid 1 mg PO DAILY 03/05/23 03/05/23 Gabapentin [Neurontin] 900 mg PO TID 03/05/23 03/05/23 Simvastatin [Zocor] 20 mg PO HS 03/05/23 03/05/23 rOPINIRole HCL [Requip] 0.25 mg PO HS PRN 03/05/23 03/05/23 Allergies Allergy/AdvReac Type Severity Reaction Status Date / Time clindamycin Allergy Rash/Hives Verified 03/05/23 11:02 venom-honey bee Allergy Anaphylaxis Verified 03/05/23 11:02 [bee venom (honey bee)] latex AdvReac Itching Verified 03/05/23 11:02 Review of Systems ROS Statement: Those systems with pertinent positive or pertinent negative responses have been documented in the HPI. ROS Other: All systems not noted in ROS Statement are negative. Past Medical History Past Medical History: GERD/Reflux, Hypertension, Sleep Apnea/CPAP/BIPAP, Thyroid Disorder Additional Past Medical History / Comment(s): MS diagnosed years ago in another states but now MRI showed no MS, Behcet's disease. Cdiff -2015 History of Any Multi-Drug Resistant Organisms: None Reported Date of last positivie culture/infection: 2014 MDRO Source:: stool Past Surgical History: Back Surgery, Orthopedic Surgery, Tonsillectomy Additional Past Surgical History / Comment(s): neck surgery, cyst removed from wrist, urethral blockage repair, laser eye surgery on right eye twice, screws and plates in upper jaw to sinus area & some in the lower jaw. Back surgery Lumbar area, neck surgery involved removing bones and shortening her neck. Has problems with intubation because of this. Past Anesthesia/Blood Transfusion Reactions: Previous Problems w/ Anesthesia Additional Past Anesthesia/Blood Transfusion Reaction / Comment(s): Neck area surgically shortened and respiratory problems when being intubated. States is very concerned about being intubated because of past respiratory problems. Past Psychological History: Anxiety, Depression Smoking Status: Current every day smoker Past Alcohol Use History: None Reported Past Drug Use History: Marijuana - Past Family History Mother Family Medical History: Unable to Obtain Additional Family Medical History / Comment(s): Patient was adopted and does not know family hx. General Exam Limitations: no limitations General appearance: alert, in no apparent distress Head exam: Present: atraumatic, normocephalic, normal inspection Eye exam: Present: normal appearance, PERRL, EOMI. Absent: scleral icterus, conjunctival injection, periorbital swelling Respiratory exam: Present: normal lung sounds bilaterally. Absent: respiratory distress, wheezes, rales, rhonchi, stridor Cardiovascular Exam: Present: regular rate, normal rhythm, normal heart sounds. Absent: systolic murmur, diastolic murmur, rubs, gallop, clicks GI/Abdominal exam: Present: soft, normal bowel sounds. Absent: distended, tenderness, guarding, rebound, rigid Extremities exam: Present: other (full ROM of UE. equal real estate leasing manager strengths bilaterally. 2+ radial pulse ) Back exam: Present: other (surgical scars noted in cervical region. tenderness to thoracic spine noted.) Neurological exam: Present: alert, oriented X3, CN II-XII intact Course Vital Signs 03/05/23 03/05/23 03/05/23 11:00 11:15 12:05 Temperature 98 F 98.2 F Pulse Rate 88 73 71 Respiratory 18 18 18 Rate Blood Pressure 164/78 124/91 124/96 O2 Sat by Pulse 98 96 96 Oximetry 03/05/23 03/05/23 03/05/23 12:55 15:10 16:25 Temperature 98.3 F 98.7 F Pulse Rate 64 57 L 71 Respiratory 18 16 17 Rate Blood Pressure 134/99 130/76 127/80 O2 Sat by Pulse 96 96 96 Oximetry Medical Decision Making - Medical Decision Making Was pt. sent in by a medical professional or institution (, PA, [facility] [facility], urgent care, hospital, or snf...) When possible be specific @ -No Did you speak to anyone other than the patient for history (EMS, parent, family, police, friend...)? What history was obtained from this source @ -Family Did you review nursing and triage notes (agree or disagree)? Why? @ -I reviewed and agree with nursing and triage notes Were old charts reviewed (outside hosp., previous admission, EMS record, old EKG, old radiological studies, urgent care reports/EKG's, snf records)? Report findings @ -No old charts were reviewed Differential Diagnosis (chest pain, altered mental status, abdominal pain women, abdominal pain men, vaginal bleeding, weakness, fever, dyspnea, syncope, headache, dizziness, GI bleed, back pain, seizure, CVA, palpatations, mental health, musculoskeletal)? @ -Differential Back Pain: Strain, zoster, cauda equina syndrome, epidural abscess, vertebral osteomyelitis, discitis, fracture, subluxation, disc herniation, DJD, spinal stenosis, dissection, AAA, pancreatitis, peptic ulcer disease, pyelonephritis, kidney stone, this is not meant to be an all-inclusive list. EKG interpreted by me (3pts min.). @ -As above X-rays interpreted by me (1pt min.). @ -Chest x-ray was negative for acute cardiopulmonary processes. Lumbar x-ray was negative for acute fractures or dislocations. CT interpreted by me (1pt min.). @ -CT angio chest was negative for acute pulmonary embolism. U/S interpreted by me (1pt. min.). @ -None done What testing was considered but not performed or refused? (CT, X-rays, U/S, labs)? Why? @ -None What meds were considered but not given or refused? Why? @ -None Did you discuss the management of the patient with other professionals (professionals i.e. , PA, [facility] [facility], lab, RT, psych nurse, social work assistant, poultry and fish butcher, teacher, probation officer, test case developer)? Give summary @ -Yes, I discussed this case with Jonnathan from [facility], [facility]. Was smoking cessation discussed for >3mins.? @ -No Was critical care preformed (if so, how long)? @ -No Were there social determinants of health that impacted care today? How? (Homelessness, low income, unemployed, alcoholism, drug addiction, transportation, low edu. Level, literacy, decrease access to med. care, assisted, rehab)? @ -No Was there de-escalation of care discussed even if they declined (Discuss DNR or withdrawal of care, Hospice)? DNR status @ -No What co-morbidities impacted this encounter? (DM, HTN, Smoking, COPD, CAD, Cancer, CVA, ARF, Chemo, Hep., AIDS, mental health diagnosis, sleep apnea, mo rbid obesity)? @ -Multiple sclerosis Was patient admitted / discharged? Hospital course, mention meds given and route, prescriptions, significant lab abnormalities, going to OR and other pertinent info. @ -Admitted. Upon initial evaluation of the patient she stated she was having centralized chest pain with radiation to her back and shortness of breath. A cardiac workup was performed. On exam patient was tender to thoracic spine. Chest x-ray obtained in the ER were negative for acute cardiopulmonary processes. No osseous abnormalities were noted. Lumbar x-ray was negative for acute fractures or dislocations. D-dimer was 0.7, otherwise labs were within normal limits. A CT angio chest was performed which was negative for pulmonary embolism. Patient received IV morphine and Zofran in the ER for pain control. She states her pain is greatly improved after that. I discussed with the patient I would like to admit her for pain control and observation due to her chest pain. She expressed understanding and agreement with the treatment plan. Undiagnosed new problem with uncertain prognosis? @ -No Drug Therapy requiring intensive monitoring for toxicity (Heparin, Nitro, Insulin, Cardizem)? @ -No Were any procedures done? @ -No Diagnosis/symptom? @ -Back pain/chest pain Acute, or Chronic, or Acute on Chronic? @ -Acute Uncomplicated (without systemic symptoms) or Complicated (systemic symptoms)? @ -Uncomplicated Side effects of treatment? @ -No Exacerbation, Progression, or Severe Exacerbation? @ -No Poses a threat to life or bodily function? How? (Chest pain, [place], [place], pneumonia, PE, COPD, DKA, ARF, appy, cholecystitis, CVA, Diverticulitis, Homicidal, Suicidal, threat to staff... and all critical care pts) @ -Yes - Lab Data Result diagrams: 03/05/23 11:41 03/05/23 11:41 Lab Results 03/05/23 03/05/23 03/05/23 Range/Units 11:41 11:41 11:41 WBC 6.2 (3.8-10.6) k/uL RBC 3.78 L (3.80-5.40) m/uL Hgb 12.2 (11.4-16.0) gm/dL Hct 35.5 (34.0-46.0) % MCV 93.9 (80.0-100.0) fL MCH 32.2 (25.0-35.0) pg MCHC 34.3 (31.0-37.0) g/dL RDW 12.5 (11.5-15.5) % Plt Count 310 (150-450) k/uL MPV 7.6 PT 10.4 (10.0-12.5) sec INR 0.9 (<1.2) APTT 22.8 (22.0-30.0) sec D-Dimer 0.71 H (<0.60) mg/L FEU Sodium 138 (137-145) mmol/L Potassium 3.9 (3.5-5.1) mmol/L Chloride 108 H (98-107) mmol/L Carbon Dioxide 22 (22-30) mmol/L Anion Gap 8 mmol/L BUN 13 (7-17) mg/dL Creatinine 0.65 (0.52-1.04) mg/dL Est GFR (CKD-EPI)AfAm >90 (>60 ml/min/1.73 sqM) Est GFR (CKD-EPI)NonAf >90 (>60 ml/min/1.73 sqM) Glucose 123 H (74-99) mg/dL Calcium 9.7 (8.4-10.2) mg/dL Magnesium 1.8 (1.6-2.3) mg/dL Total Bilirubin 0.5 (0.2-1.3) mg/dL AST 25 (14-36) U/L ALT 16 (4-34) U/L Alkaline Phosphatase 161 H (38-126) U/L Troponin I (0.000-0.034) ng/mL Total Protein 6.8 (6.3-8.2) g/dL Albumin 4.1 (3.5-5.0) g/dL 03/05/23 Range/Units 11:41 WBC (3.8-10.6) k/uL RBC (3.80-5.40) m/uL Hgb (11.4-16.0) gm/dL Hct (34.0-46.0) % MCV (80.0-100.0) fL MCH (25.0-35.0) pg MCHC (31.0-37.0) g/dL RDW (11.5-15.5) % Plt Count (150-450) k/uL MPV PT (10.0-12.5) sec INR (<1.2) APTT (22.0-30.0) sec D-Dimer (<0.60) mg/L FEU Sodium (137-145) mmol/L Potassium (3.5-5.1) mmol/L Chloride (98-107) mmol/L Carbon Dioxide (22-30) mmol/L Anion Gap mmol/L BUN (7-17) mg/dL Creatinine (0.52-1.04) mg/dL Est GFR (CKD-EPI)AfAm (>60 ml/min/1.73 sqM) Est GFR (CKD-EPI)NonAf (>60 ml/min/1.73 sqM) Glucose (74-99) mg/dL Calcium (8.4-10.2) mg/dL Magnesium (1.6-2.3) mg/dL Total Bilirubin (0.2-1.3) mg/dL AST (14-36) U/L ALT (4-34) U/L Alkaline Phosphatase (38-126) U/L Troponin I <0.012 (0.000-0.034) ng/mL Total Protein (6.3-8.2) g/dL Albumin (3.5-5.0) g/dL - EKG Data -: EKG Interpreted by [facility] EKG Comments: EKG taken at 11:54 shows normal sinus rhythm with no acute T-wave abnormalities noted. Ventricular rate 64, MI interval 140, QRS duration 85, QT/QTC 4:30/439. - Radiology Data Radiology results: report reviewed, image reviewed Disposition Clinical Impression: Back pain, Chest pain Disposition: ADMITTED IP TO THIS [facility] Condition: Stable Referrals: Kwan Graham MD [Primary Care Provider] - 1-2 days Time of Disposition: 15:42
[2023-03-05] MEDS ORDERED: ONDANSETRON 4 MG/2 ML VIAL IVP STA (11:37)
[2023-03-05] MEDS ORDERED: MORPHINE SULFATE 2 MG/ML SYRINGE IVP STA (11:37)
[2023-03-05 12:17] LABS: HCT 35.5 % (34.0-46.0); HGB 12.2 gm/dL (11.4-16.0); MCH 32.2 pg (25.0-35.0); MCHC 34.3 g/dL (31.0-37.0); MCV 93.9 fL (80.0-100.0); Mean Platelet Volume 7.6; Platelet Count 310 k/uL (150-450); RBC 3.78 m/uL (3.80-5.40); RDW 12.5 % (11.5-15.5); WBC 6.2 k/uL (3.8-10.6)
[2023-03-05 12:37] LABS: INR 0.9 (<1.2); Partial Thromboplastin Time 22.8 sec (22.0-30.0); Prothrombin Time 10.4 sec (10.0-12.5)
[2023-03-05 12:39] LABS: ALT 16 U/L (4-34); AST 25 U/L (14-36); African American GFR (CKD) >90 (>60 ml/min/1.73 sqM); Albumin 4.1 g/dL (3.5-5.0); Alkaline Phosphatase 161 U/L (38-126); Anion Gap 8 mmol/L; Blood Urea Nitrogen 13 mg/dL (7-17); Calcium 9.7 mg/dL (8.4-10.2); Carbon Dioxide 22 mmol/L (22-30); Chloride 108 mmol/L (98-107); Glucose 123 mg/dL (74-99); Magnesium 1.8 mg/dL (1.6-2.3); Non-African American GFR(CKD) >90 (>60 ml/min/1.73 sqM); Potassium 3.9 mmol/L (3.5-5.1); Sodium 138 mmol/L (137-145); Total Bilirubin 0.5 mg/dL (0.2-1.3); Total Protein 6.8 g/dL (6.3-8.2)
--- NOTE | 2023-03-05 12:42 | XR ---
EXAMINATION TYPE: XR chest 2V DATE OF EXAM: 03/05/2023 12:14 PM CLINICAL INDICATION:Female, 57 years old with history of Chest Pain; [facility] COMPARISON: Chest radiographs from 10/08/2020. TECHNIQUE: XR chest 2V Frontal and lateral views of the chest. FINDINGS: Lungs/Pleura: There is flattening of the diaphragm with increased lucency of the lungs. No evidence o f pneumothorax, pleural effusion or focal consolidation. Pulmonary vascularity: Unremarkable. Heart/mediastinum: Cardiomediastinal silhouette is unremarkable. Musculoskeletal: No acute osseous pathology. There is fixation hardware in the lower cervical spine. IMPRESSION: 1. No acute cardiopulmonary disease process. 2. COPD changes.
--- NOTE | 2023-03-05 12:43 | XR ---
EXAMINATION TYPE: XR lumbar spine 2 or 3V DATE OF EXAM: 03/05/2023 12:20 PM CLINICAL INDICATION:Female, 57 years old with history of pain; COMPARISON: None TECHNIQUE: XR lumbar spine 2 or 3V - Frontal, lateral and coned in L5-S1 lateral views of the spine. FINDINGS: Postsurgical changes of the spine with hardware appearing intact. Scattered surgical clips are present. There is scoliosis with lateral translation of the L4-S1 to the left.. Moderate amount s tool throughout the colon. No evidence of any acute osseous pathology. No evidence of significant lo ss of vertebral body height is seen. There is normal alignment of the lumbar vertebral bodies. No sig nificant degeneration changes throughout the spine. IMPRESSION: 1. No acute fracture. 2. Postsurgical changes with hardware intact. There is scoliosis changes L3-L4.
--- NOTE | 2023-03-05 14:38 | CT ---
EXAMINATION TYPE: CT chest angio for PE CT DLP: 271.6 mGycm, Automated exposure control for dose reduction was used. DATE OF EXAM: 03/05/2023 2:13 PM COMPARISON: Chest radiograph from same day. CT chest 10/07/2014 CLINICAL INDICATION:Female, 57 years old with history of elevated dimer; Elevated D-Dimer TECHNIQUE/CONTRAST: CTA scan of the thorax is performed without and with IV Contrast, patient injected with 100 ml mL of Isovue 300, MIP images are created and reviewed these are created on a separate workstation.. FINDINGS: Pulmonary Artery: There is no evidence for a filling defect within the pulmonary vasculature to sugge st acute pulmonary embolism. The pulmonary artery is of normal size. Lungs/Pleura: No evidence of focal consolidation, pleural effusion or pneumothorax. Airway: Large airways are patent. Heart: Heart is within normal limits for size. Vasculature: No evidence of aortic aneurysm. Mediastinum: No gross evidence of adenopathy. Musculoskeletal: No acute osseous abnormalities Soft Tissues: Unremarkable. Lower neck: No significant findings. Upper Abdomen: No significant findings. IMPRESSION: 1. No evidence of pulmonary embolism.
[2023-03-05] MEDS ORDERED: ONDANSETRON 4 MG/2 ML VIAL IVP PRN (15:30)
[2023-03-05] MEDS ORDERED: NALOXONE 0.4 MG/ML 1 ML VIAL IV PRN (15:30)
[2023-03-05] MEDS: NICOTINE 14MG/24HR PATCH TRANSDERM SCH (15:39)
[2023-03-05] MEDS ORDERED: IPRATROPIUM-ALBUTEROL 3 ML NEB INHALATION PRN (16:56)
[2023-03-05] MEDS ORDERED: methylPREDNISolone SOD SUCCI 125 MG/2 ML VIAL IV STA (16:57)
[2023-03-05] MEDS ORDERED: MELATONIN 3 MG TABLET PO PRN (17:06)
--- NOTE | 2023-03-05 17:16 | P.HPIM ---
History of Present Illness H&P Date: 03/05/23 57-year-old female with PMH of glaucoma, hypertension, smoker, multiple sclerosis, multiple spinal surgeries involving the cervical/thoracic/lumbar spine presents the ED for 3 days of back pain. Pain started acutely when attempting to get out of bed. She reports pain between her shoulder blades, sharp and stabbing, throbbing, 10 out of 10 in severity. Pain is worsened with movement. She also reports pressure-like chest pain has been ongoing since that time. Chest pain is associated with shortness of breath. She also reports difficulty holding her urination. No saddle anesthesia, no lower extremity weakness. She reports chronic numbness and tingling in her fingers and toes. She attempted to take Valium and Percocet which did not help with her pain. This prompted her to come to the ED. In the ED, she underwent extensive workup. Vital signs were stable. CBC showed RBC count 3.78. Coag panel within normal limits. D-Dimer 0.71. CMP Cl 108, glucose 123, alk phos 161. Troponin < 0.012. CXR showed findings of COPD. CTA chest negative for PE. L spine XR showed post surgical changes with hardware intact. EKG showed sinus rhythm with no ST changes. Patient is admitted for further workup and management. General: non toxic, no distress, appears at stated age Derm: warm, dry Head: atraumatic, normocephalic, symmetric Eyes: EOMI, no lid lag, anicteric sclera Cardiovascular: S1S2 reg, no murmur Lungs: End expiratory wheezing bilateral, no rhonchi, no rales , no accessory muscle use Ext: no gross muscle atrophy, no edema, no contractures, tenderness to palpation thoracic spine Neuro: no focal neuro deficits Psych: Alert, oriented, appropriate affect Intractable thoracic back pain Acute COPD exacerbation Urinary Incontinence Chest pain Chronic conditions: glaucoma, hypertension, smoker, multiple sclerosis, multiple spinal surgeries involving the cervical/thoracic/lumbar spine Based on my assessment of this patient, this patient meets a high complexity level of care. Patient has an acute diagnosis of intractable thoracic back pain in the setting of multiple spinal surgeries and urinary incontinence that poses a threat to life or bodily function. She has a history of MS as well. Also complains of chest pain. Intractable thoracic back pain: Obtain CT C/T/L-spine. Neurochecks. Fall precations. Morphine 4 mg IV Q4H PRN for severe pain. PT and OT consult. Acute COPD exacerbation: DuoNeb scheduled and PRN for SOB/wheezing. Start Solumedrol 125 mg IV x 1 followed by 40 mg IV Q8H. Urinary Incontinence: Obtain UA with reflex to UCx. Chest pain: Trend Trop/EKG to rule out ACS. Lovenox SQ for DVT prophylaxis. Tonya roommate is her decision maker if she can't make decisions for herself. FULL CODE I have reviewed the following inside solar sales consultant notes: I have reviewed the results of the following tests: As above I have ordered the following tests: As above I have discussed the care of this patient with the following independent historian: I have independently interpreted the following test below: EKG as above. I have discussed the management of this patient with the following physician: Past Medical History Past Medical History: GERD/Reflux, Hypertension, Sleep Apnea/CPAP/BIPAP, Thyroid Disorder Additional Past Medical History / Comment(s): MS diagnosed [place] ago [place] but now MRI showed no MS, Behcet's disease. Cdiff -2014 History of Any Multi-Drug Resistant Organisms: None Reported Date of last positivie culture/infection: 2014 MDRO Source:: stool Past Surgical History: Back Surgery, Orthopedic Surgery, Tonsillectomy Additional Past Surgical History / Comment(s): neck surgery, cyst removed from wrist, urethral blockage repair, laser eye surgery on right eye twice, screws and plates in upper jaw to sinus area & some in the lower jaw. Back surgery Lumbar area, neck surgery involved removing bones and shortening her neck. Has problems with intubation because of this. Past Anesthesia/Blood Transfusion Reactions: Previous Problems w/ Anesthesia Additional Past Anesthesia/Blood Transfusion Reaction / Comment(s): Neck area surgically shortened and respiratory problems when being intubated. States is very concerned about being intubated because of past respiratory problems. Past Psychological History: Anxiety, Depression Smoking Status: Current every day smoker Past Alcohol Use History: None Reported Past Drug Use History: Marijuana - Past Family History Mother Family Medical History: Unable to Obtain Additional Family Medical History / Comment(s): Patient was adopted and does not know family hx. Medications and Allergies Home Medications Medication Instructions Recorded Confirmed Type diazePAM 10 mg PO BID PRN 05/08/15 03/05/23 History Verapamil HCl [Calan Sr] 240 mg PO BID 04/26/16 03/05/23 History Citalopram Hydrobromide 40 mg PO HS 08/24/18 03/05/23 History [Citalopram HBr] Omeprazole [PriLOSEC] 20 mg PO DAILY 01/15/19 03/05/23 History Prednisolone Acetate/Pf 1 drop RIGHT EYE DAILY@1200 01/15/19 03/05/23 History [Prednisolone Acet 1% Eye Drop] Brimonidine Tartrate [Alphagan P 1 drop RIGHT EYE DAILY@1200 09/16/20 03/05/23 History 0.2% Ophth Soln] Levothyroxine Sodium [Synthroid] 112 mcg PO DAILY 11/23/20 03/05/23 History Dextroamphetamine/Amphetamine 7.5 mg PO DAILY@1500 03/05/23 03/05/23 History [Adderall] Dextroamphetamine/Amphetamine 10 mg PO BID@0800,1200 03/05/23 03/05/23 History [Adderall] Ergocalciferol [Vitamin D2 (1250 1,250 mcg PO Q28D 03/05/23 03/05/23 History Mcg = 79547 Iu)] Folic Acid 1 mg PO DAILY 03/05/23 03/05/23 History Gabapentin [Neurontin] 900 mg PO TID 03/05/23 03/05/23 History Simvastatin [Zocor] 20 mg PO HS 03/05/23 03/05/23 History rOPINIRole HCL [Requip] 0.25 mg PO HS PRN 03/05/23 03/05/23 History Allergies Allergy/AdvReac Type Severity Reaction Status Date / Time clindamycin Allergy Rash/Hives Verified 03/05/23 11:02 venom-honey bee Allergy Anaphylaxis Verified 03/05/23 11:02 [bee venom (honey bee)] latex AdvReac Itching Verified 03/05/23 11:02 Physical Exam Vitals: Vital Signs Temp Pulse Resp BP Pulse Ox 03/05/23 16:25 98.7 F 71 17 127/80 96 03/05/23 15:10 57 L 16 130/76 96 03/05/23 12:55 98.3 F 64 18 134/99 96 03/05/23 12:05 71 18 124/96 96 03/05/23 11:15 98.2 F 73 18 124/91 96 03/05/23 11:00 98 F 88 18 164/78 98 Intake and Output 03/05/23 03/05/23 03/05/23 06:59 14:59 22:59 Other: Weight 72.575 kg Results CBC & Chem 7: 03/05/23 11:41 03/05/23 11:41 Labs: Abnormal Lab Results - Last 24 Hours (Table) 03/05/23 03/05/23 03/05/23 Range/Units 11:41 11:41 11:41 RBC 3.78 L (3.80-5.40) m/uL D-Dimer 0.71 H (<0.60) mg/L FEU Chloride 108 H (98-107) mmol/L Glucose 123 H (74-99) mg/dL Alkaline Phosphatase 161 H (38-126) U/L
[2023-03-05] MEDS: MORPHINE SULFATE 4 MG/ML SYRINGE IVP PRN ×2 (17:27→22:04)
[2023-03-05 17:42] LABS: Appearance,Urine Clear (Clear); Bilirubin,Urine Negative (Negative); Blood,Urine Negative (Negative); Color,Urine Colorless; Glucose,Urine (UA) Negative (Negative); Ketones,Urine Negative (Negative); Leukocyte Esterase,Urine Moderate (Negative); Mucus,Urine Rare /hpf; Nitrite,Urine Negative (Negative); PH, Urine 6.5 (5.0-8.0); Protein,Urine Negative (Negative); RBC,Urine 3 /hpf (0-5); Squamous Epithelial Cell,Urine 2 /hpf (0-4); Urobilinogen,Urine <2.0 mg/dL (<2.0); WBC,Urine 4 /hpf (0-5)
--- NOTE | 2023-03-05 17:45 | CT ---
EXAMINATION TYPE: CT CervThorLumbar spine wo con CT DLP: 1503.7 mGycm, Automated exposure control for dose reduction was used. DATE OF EXAM: 03/05/2023 5:18 PM CLINICAL INDICATION:Female, 57 years old with history of back pain with urinary retention; Chronic ba ck pain, no injury. COMPARISON: 07/20/2022, 06/21/2022, 01/24/2018, 04/22/2017. TECHNIQUE: Axial images of the cervical, thoracic and lumbar spine were obtained without contrast. Co samson and sagittal reformats were performed. 3-D reformats of the bones were created on a separate wo rkstation and submitted for review. CT Contrast: Contrast used: mL of , none. Oral contrast used: none. FINDINGS: Fixation hardware in the cervical spine seen from C3 to C7. There is extensive degeneration changes a t C7-T1 secondary to altered mechanics from fixation hardware. The hardware appears intact. There is increased angulation at C6-C7. The spinal canal through the cervical spine and upper thoracic spine a ppears grossly patent there is mild narrowing suggested at T1 secondary to large osteophyte formation . There is some chronic appearing degenerative versus old traumatic injury changes to the spinous pro cess of T1 and T2. There is no evidence of acute fracture within the cervical spine. There is ankylos is of the spine and multiple areas within the cervical spine including the occiput C1 and C2. Additio jenny the posterior fixation changes demonstrate fusion of the facets extending from C3 to C7. There is moderate to severe C7-T1 neural foraminal stenosis. There is a suspected postop seroma at the leve l of C6-T2 in the surgical bed. This measures roughly 4.1 x 2.2 cm. The thoracic spine is without evidence of significant spinal canal or neural foraminal stenosis. The lumbar spine demonstrates fixation changes anteriorly at L3-L4 L4-L5 and L5-S1. Hardware appears inta ct. There is extensive degeneration changes at L2-3 endplates likely secondary to altered mechanics f rom fixation.. There is facet joint arthropathy throughout the spine. No significant spinal canal karl nosis. There is multilevel at least mild narrowing of neural foraminal stenosis with moderate neural foraminal stenosis at L4-L5 and L5-S1 bilaterally. Pseudoarthrosis of the spinous processes. Excreted IV contrast is seen within the collecting systems of the kidneys with simple appearing left renal cyst. Visualized portions of the lung are grossly unremarkable. IMPRESSION: 1. No evidence for acute fracture. There is fixation changes in the cervical and lumbar spine which appear intact. There is at least mild C7-T1 spinal canal stenosis and L3-L3 spinal canal stenosis. 2. Multilevel degeneration changes are present with severe degeneration at L2-L3 and C7-T1 likely se condary to altered mechanics from fixation. 3. Neural foraminal stenosis at L4-L5 and L5-S1 with at least moderate bilaterally with moderate to severe C7-T1 neural foraminal stenosis. 4. Suspected surgical bed seroma at the level of C6-T2.
[2023-03-05 17:53] LABS: Specific Gravity,Urine >1.050 (1.001-1.035)
[2023-03-05] MEDS ORDERED: IPRATROPIUM-ALBUTEROL 3 ML NEB INHALATION SCH (20:00)
[2023-03-05] MEDS: GABAPENTIN 300 MG CAP PO SCH (20:32)
[2023-03-05] MEDS: VERAPAMIL SR 240 MG TABLET.ER PO SCH (20:32)
[2023-03-05] MEDS ORDERED: CITALOPRAM HYDROBROMIDE 20 MG TAB PO SCH (21:00)
[2023-03-05] MEDS ORDERED: ATORVASTATIN 10 MG TAB PO SCH (21:00)
[2023-03-05] MEDS ORDERED: ALBUTEROL HFA INHALER INHALATION SCH (21:08)
[2023-03-06] MEDS: ACETAMINOPHEN TAB 325 MG TAB PO PRN ×2 (00:03→08:55)
[2023-03-06 02:34] VITALS: RESP 16
[2023-03-06] MEDS ORDERED: LEVOTHYROXINE 112 MCG TAB PO SCH (06:30)
[2023-03-06] MEDS ORDERED: PANTOPRAZOLE 40 MG TABLET PO SCH (07:30)
[2023-03-06] MEDS ORDERED: TIOTROPIUM 2.5 MCG INHALER INHALATION SCH (08:00)
[2023-03-06] MEDS ORDERED: NON FORMULARY DRUG (Dextroamphetamine/Amphetamine [Adderall] 10 MG Tablet) PO SCH (08:00)
[2023-03-06] MEDS: GABAPENTIN 300 MG CAP PO SCH (08:05)
[2023-03-06] MEDS: methylPREDNISolone SOD SUCCI 40 MG/ML 1 ML VIAL IV SCH ×2 (08:05)
[2023-03-06] MEDS: NICOTINE 14MG/24HR PATCH TRANSDERM SCH (08:05)
[2023-03-06] MEDS: VERAPAMIL SR 240 MG TABLET.ER PO SCH (08:06)
[2023-03-06] MEDS ORDERED: HYDROcodone/APAP 7.5-325MG 1 EACH TAB PO PRN (08:48)
[2023-03-06] MEDS ORDERED: KETOROLAC 15 MG/ML 1 ML VIAL IVP PRN (08:56)
[2023-03-06] MEDS ORDERED: FOLIC ACID 1 MG TAB PO SCH (09:00)
[2023-03-06] MEDS ORDERED: ENOXAPARIN 40 MG/0.4 ML SYRINGE SQ SCH (09:00)
[2023-03-06 09:03] VITALS: BP 135/75; PULSE 66; TEMP 97.7
--- NOTE | 2023-03-06 09:37 | P.DS ---
Providers Date of admission: 03/05/23 16:08 Expected date of discharge: 03/06/23 Attending physician: Rob Esquivel MD Primary care physician: Kwan Joyner [place] Hospital Course: 57-year-old female with PMH of glaucoma, hypertension, smoker, multiple sclerosis, multiple spinal surgeries involving the cervical/thoracic/lumbar spine presents the ED for 3 days of back pain. Pain started acutely when attempting to get out of bed. She reports pain between her shoulder blades, sharp and stabbing, throbbing, 10 out of 10 in severity. Pain is worsened with movement. She also reports pressure-like chest pain has been ongoing since that time. Chest pain is associated with shortness of breath. She also reports difficulty holding her urination. No saddle anesthesia, no lower extremity weakness. She reports chronic numbness and tingling in her fingers and toes. She attempted to take Valium and Percocet which did not help with her pain. This prompted her to come to the ED. In the ED, she underwent extensive workup. Vital signs were stable. CBC showed RBC count 3.78. Coag panel within normal limits. D-Dimer 0.71. CMP Cl 108, glucose 123, alk phos 161. Troponin < 0.012. CXR showed findings of COPD. CTA chest negative for PE. L spine XR showed post surgical changes with hardware intact. EKG showed sinus rhythm with no ST changes. Patient is admitted for further workup and management. 03/06 Patient was seen and examined. Rae CT on the spine showed surgical changes of the spine along with mild C7-T1 and L3 spinal canal stenosis, multilevel DJD, neural foraminal stenosis L4-L5, C7-T1. Troponin < 0.012 x 2. COVID +. UA negative LE or nitrite. I believe most of her respiratory symptoms are related to her diagnosis of COVID 19. She is currently not on O2 and treatment at this time is supportive. Her back pain is likely related to neural foraminal stenosis. She does have mild spinal stenosis but does not appear to have any warning signs at this time. Given her diagnosis of COVID, any surgical intervention will not be possible at this time. I believe she should follow up with her Neurosurgeon for further management of her spinal issues. Prescribed Prednisone 50 mg PO QD for 4 days and Albuterol INH PRN for SOB/wheezing. Prescribed 3 days of Percocet PRN for back pain. General: non toxic, no distress, appears at stated age Derm: warm, dry Head: atraumatic, normocephalic, symmetric Eyes: EOMI, no lid lag, anicteric sclera Cardiovascular: good distal perfusion in all 4 extremities Lungs: breathing comfortably, no accessory muscle use Ext: no gross muscle atrophy, no edema, no contractures, tenderness to palpation thoracic spine Neuro: no focal neuro deficits Psych: Alert, oriented, appropriate affect Discharge Diagnosis: Intractable thoracic back pain related to neural foraminal stenosis Mild spinal canal stenosis Acute COPD exacerbation COVID 19 Urinary Incontinence Chronic conditions: glaucoma, hypertension, smoker, multiple sclerosis, multiple spinal surgeries involving the cervical/thoracic/lumbar spine This complex discharge took 35 minutes to complete. Patient Condition at Discharge: Stable Plan - Discharge Summary Discharge Rx Participant: No New Discharge Prescriptions: New oxyCODONE HCL/ACETAMINOPHEN [Percocet 7.5-325 mg] 1 tab PO Q4HR PRN 3 Days #18 tab PRN Reason: Pain Acetaminophen Tab [Tylenol] 650 mg PO Q6HR PRN tab PRN Reason: Mild Pain Or Fever > 100.5 Albuterol Inhaler [Ventolin Hfa Inhaler] 2 puff INHALATION RT-QID PRN #1 each PRN Reason: Shortness Of Breath predniSONE 50 mg PO DAILY #4 tab Continue diazePAM 10 mg PO BID PRN PRN Reason: Anxiety Verapamil HCl [Calan Sr] 240 mg PO BID Citalopram Hydrobromide [Citalopram HBr] 40 mg PO HS Prednisolone Acetate/Pf [Prednisolone Acet 1% Eye Drop] 1 drop RIGHT EYE DAILY@1200 Omeprazole [PriLOSEC] 20 mg PO DAILY Brimonidine Tartrate [Alphagan P 0.2% Oph Soln] 1 drop RIGHT EYE DAILY@1200 Levothyroxine Sodium [Synthroid] 112 mcg PO DAILY Ergocalciferol [Vitamin D2 (1250 Mcg = 32241 Iu)] 1,250 mcg PO Q28D rOPINIRole HCL [Requip] 0.25 mg PO HS PRN PRN Reason: RLS Folic Acid 1 mg PO DAILY Dextroamphetamine/Amphetamine [Adderall] 10 mg PO BID@0800,1200 Gabapentin [Neurontin] 900 mg PO TID Simvastatin [Zocor] 20 mg PO HS Dextroamphetamine/Amphetamine [Adderall] 7.5 mg PO DAILY@1500 Discharge Medication List diazePAM 10 mg PO BID PRN 05/08/15 [History] Verapamil HCl [Calan Sr] 240 mg PO BID 04/26/16 [History] Citalopram Hydrobromide [Citalopram HBr] 40 mg PO HS 08/24/18 [History] Omeprazole [PriLOSEC] 20 mg PO DAILY 01/15/19 [History] Prednisolone Acetate/Pf [Prednisolone Acet 1% Eye Drop] 1 drop RIGHT EYE DAILY@1200 01/15/19 [History] Brimonidine Tartrate [Alphagan P 0.2% Ophth Soln] 1 drop RIGHT EYE DAILY@1200 09/16/20 [History] Levothyroxine Sodium [Synthroid] 112 mcg PO DAILY 11/23/20 [History] Dextroamphetamine/Amphetamine [Adderall] 7.5 mg PO DAILY@1500 03/05/23 [History] Dextroamphetamine/Amphetamine [Adderall] 10 mg PO BID@0800,1200 03/05/23 [History] Ergocalciferol [Vitamin D2 (1250 Mcg = 62204 Iu)] 1,250 mcg PO Q28D 03/05/23 [History] Folic Acid 1 mg PO DAILY 03/05/23 [History] Gabapentin [Neurontin] 900 mg PO TID 03/05/23 [History] Simvastatin [Zocor] 20 mg PO HS 03/05/23 [History] rOPINIRole HCL [Requip] 0.25 mg PO HS PRN 03/05/23 [History] Acetaminophen Tab [Tylenol] 650 mg PO Q6HR PRN tab 03/06/23 [Rx] Albuterol Inhaler [Ventolin Hfa Inhaler] 2 puff INHALATION RT-QID PRN #1 each 03/06/23 [Rx] oxyCODONE HCL/ACETAMINOPHEN [Percocet 7.5-325 mg] 1 tab PO Q4HR PRN 3 Days #18 tab 03/06/23 [Rx] predniSONE 50 mg PO DAILY #4 tab 03/06/23 [Rx] Follow up Appointment(s)/Referral(s): Kwan Graham MD [Primary Care Provider] - 1-2 days Discharge Disposition: HOME SELF-CARE
[2023-03-06] MEDS ORDERED: prednisoLONE ACETATE 1% OPHTH DROPS 5 ML BTL RIGHT EYE SCH (12:00)
[2023-03-06] MEDS ORDERED: BRIMONIDINE TARTRATE 0.2% DROPS 5 ML BTL RIGHT EYE SCH (12:00)
[2023-03-06] MEDS ORDERED: DEXTROAMPHETAMINE PO SCH (15:00)
[2023-03-06] MEDS ORDERED: AMPHETAMINE PO SCH (15:00)
== END 2023-03-06 10:32 | disposition home or self-care (01) ==
LOC: EC 10:57 → 6NMEDSUR 16:08
PROVIDERS: ADMIT Family Medicine; ATTEND Family Medicine
DX: M48.03 Spinal stenosis, cervicothoracic region (principal); M48.061 Spinal stenosis, lumbar region without neurogenic claudication; M48.07 Spinal stenosis, lumbosacral region; J44.1 Chronic obstructive pulmonary disease with (acute) exacerbation; R32 Unspecified urinary incontinence; K21.9 Gastro-esophageal reflux disease without esophagitis; I10 Essential (primary) hypertension; G47.30 Sleep apnea, unspecified; U07.1 COVID-19; G35 Multiple sclerosis; F32.A Depression, unspecified; F41.9 Anxiety disorder, unspecified; H40.9 Unspecified glaucoma; F17.200 Nicotine dependence, unspecified, uncomplicated; Z98.890 Other specified postprocedural states; Z79.890 Hormone replacement therapy; Z79.899 Other long term (current) drug therapy; Z88.1 Allergy status to other antibiotic agents; Z91.040 Latex allergy status
CPT/HCPCS: 96376 ×3; 96372; 96374; 96375; 99285; 36415; 94640; 93005; 85379; 80053; 83735 ×2; 84484; 85027; 85610; 85730; 81001; 87636; 72100; 71046; 72128; 72125; 72131; 71275; G0378 ×2; S4990 ×2; J2270 ×2; J2920; J2930; J2405; J1650; Q9967

== ENCOUNTER → 2023-04-14 | Outpatient (CLI) | payer MEDICARE, OTHER ==
--- NOTE | 2023-04-18 22:17 | MR ---
EXAMINATION TYPE: MR lumbar spine wo con DATE OF EXAM: 04/14/2023 COMPARISON: 08/13/2014 HISTORY: 57-year-old female M48.061, spinal stenosis, Lower back pain, hx surgery. TECHNIQUE: Multiplanar, multisequence images of the lumbar spine were acquired without IV contrast. FINDINGS: Postsurgical change of anterior lumbar fusion L3-S1 levels. Fixed grade 1 anterolisthesis at L5-S1 an d fixed grade 1 retrolisthesis L3-L4. There has been progression to severe distention plate degenerative change above the fusion at L2-L3 a long with ligamentum flavum thickening and disc osteophyte complex contributing to a focal moderate t o severe canal stenosis, significantly increased from prior. Vertebral body heights are preserved. Mild degenerative disc disease L-1-L2 has also progressed with mild disc bulge impressing on the vent ral thecal sac but not causing any significant spinal canal stenosis. Heterogeneous marrow without suspicious bone marrow replacement. Conus medullaris is normal.. On the right, changes result in moderate to severe neuroforaminal stenosis at L5-S1 and moderate at L 2-L3, L3-L4, L4-L5. On the left, changes of the abdomen moderate neuroforaminal stenoses at L5-S1 and L2-L3. Mild at L3-L 4 and L4-L5. Anterior left renal cyst measuring 1.8 cm. IMPRESSION: 1. Interval anterior lumbar fusion L3-S1 levels with fixed grade 1 spondylolisthesis L3-L4 and L5-S1. 2. Interval progression now to severe disc/endplate degenerative change above the fusion at L2-L3. Li gamentum flavum thickening and facet arthropathy here along with the disc osteophyte complex contribu cisco to moderate to severe focal spinal canal stenosis. 3. Variable neural foraminal stenoses, moderate to severe on the right at L5-S1 and moderate at addit ional levels as outlined above.
== END | disposition home or self-care (01) ==
LOC: RADMRIMAIN 11:37
PROVIDERS: ATTEND Neurological Surgery
DX: M48.061 Spinal stenosis, lumbar region without neurogenic claudication (principal); M43.16 Spondylolisthesis, lumbar region; M43.17 Spondylolisthesis, lumbosacral region; M47.816 Spondylosis without myelopathy or radiculopathy, lumbar region; M99.73 Connective tissue and disc stenosis of intervertebral foramina of lumbar region
CPT/HCPCS: 72148

== ENCOUNTER 2023-06-02 10:44 | Emergency (ER) | payer MEDICARE ==
[2023-06-02 11:01] VITALS: RESP 18
--- NOTE | 2023-06-02 11:56 | ED ---
Neck Injury/Pain HPI - General Chief Complaint: Neck Pain/Injury Stated Complaint: Fall Time Seen by Provider: 06/02/23 11:24 Source: patient, RN notes reviewed Mode of arrival: ambulatory Limitations: no limitations - History of Present Illness Initial Comments: This is a 57-year-old female who presents to the emergency department for neck pain. Patient tripped and fell about a week ago, landing on her bottom. However, in the process she felt pain shoot up into her neck. She has a history of chronic neck pain requiring neck surgeries, and since the fall has also had pain going around to the front of her neck. States she feels a ball or tightening sensation in the front of her neck, particularly when she swallows or speaks. Additionally, she notes intermittent fevers over the last couple of days. Denies hitting her head in the fall or any loss of consciousness. Not taking any blood thinners. MD Complaint: neck pain - Related Data Home Medications Medication Instructions Recorded Confirmed diazePAM 10 mg PO BID PRN 05/08/15 03/05/23 Verapamil HCl [Calan Sr] 240 mg PO BID 04/26/16 03/05/23 Citalopram Hydrobromide 40 mg PO HS 08/24/18 03/05/23 [Citalopram HBr] Omeprazole [PriLOSEC] 20 mg PO DAILY 01/15/19 03/05/23 Prednisolone Acetate/Pf 1 drop RIGHT EYE DAILY@1200 01/15/19 03/05/23 [Prednisolone Acet 1% Eye Drop] Brimonidine Tartrate [Alphagan P 1 drop RIGHT EYE DAILY@1200 09/16/20 03/05/23 0.2% Ophth Soln] Levothyroxine Sodium [Synthroid] 112 mcg PO DAILY 11/23/20 03/05/23 Dextroamphetamine/Amphetamine 7.5 mg PO DAILY@1500 03/05/23 03/05/23 [Adderall] Dextroamphetamine/Amphetamine 10 mg PO BID@0800,1200 03/05/23 03/05/23 [Adderall] Ergocalciferol [Vitamin D2 (1250 1,250 mcg PO Q28D 03/05/23 03/05/23 Mcg = 69119 Iu)] Folic Acid 1 mg PO DAILY 03/05/23 03/05/23 Gabapentin [Neurontin] 900 mg PO TID 03/05/23 03/05/23 Simvastatin [Zocor] 20 mg PO HS 03/05/23 03/05/23 rOPINIRole HCL [Requip] 0.25 mg PO HS PRN 03/05/23 03/05/23 Previous Rx's Medication Instructions Recorded Acetaminophen Tab [Tylenol] 650 mg PO Q6HR PRN tab 03/06/23 Albuterol Inhaler [Ventolin Hfa 2 puff INHALATION RT-QID PRN #1 03/06/23 Inhaler] each oxyCODONE HCL/ACETAMINOPHEN 1 tab PO Q4HR PRN 3 Days #18 tab 03/06/23 [Percocet 7.5-325 mg] predniSONE 50 mg PO DAILY #4 tab 03/06/23 Naproxen Sodium 550 mg PO BID PRN #30 tablet 06/02/23 methocarbamoL [Robaxin-750] 1,500 mg PO TID PRN #30 tab 06/02/23 Allergies Allergy/AdvReac Type Severity Reaction Status Date / Time clindamycin Allergy Rash/Hives Verified 06/02/23 10:52 venom-honey bee Allergy Anaphylaxis Verified 06/02/23 10:52 [bee venom (honey bee)] latex AdvReac Itching Verified 06/02/23 10:52 Review of Systems ROS Statement: Those systems with pertinent positive or pertinent negative responses have been documented in the HPI. ROS Other: All systems not noted in ROS Statement are negative. Past Medical History Past Medical History: GERD/Reflux, Hypertension, Sleep Apnea/CPAP/BIPAP, Thyroid Disorder Additional Past Medical History / Comment(s): MS diagnosed [place] ago in [place] states but now MRI showed no MS, Behcet's disease. Cdiff -2014 History of Any Multi-Drug Resistant Organisms: None Reported Date of last positivie culture/infection: 2014 MDRO Source:: stool Past Surgical History: Back Surgery, Orthopedic Surgery, Tonsillectomy Additional Past Surgical History / Comment(s): neck surgery, cyst removed from wrist, urethral blockage repair, laser eye surgery on right eye twice, screws and plates in upper jaw to sinus area & some in the lower jaw. Back surgery Lumbar area, neck surgery involved removing bones and shortening her neck. Has problems with intubation because of this. Past Anesthesia/Blood Transfusion Reactions: Previous Problems w/ Anesthesia Additional Past Anesthesia/Blood Transfusion Reaction / Comment(s): Neck area surgically shortened and respiratory problems when being intubated. States is very concerned about being intubated because of past respiratory problems. Past Psychological History: Anxiety, Depression Smoking Status: Current every day smoker Past Alcohol Use History: None Reported Past Drug Use History: Marijuana - Past Family History Mother Family Medical History: Unable to Obtain Additional Family Medical History / Comment(s): Patient was adopted and does not know family hx. General Exam Limitations: no limitations General appearance: alert, in no apparent distress Head exam: Present: atraumatic, normocephalic, normal inspection Neck exam: Present: normal inspection. Absent: tenderness, meningismus, lymphadenopathy Respiratory exam: Present: normal lung sounds bilaterally. Absent: respiratory distress, wheezes, rales, rhonchi, stridor Cardiovascular Exam: Present: regular rate, normal rhythm, normal heart sounds. Absent: systolic murmur, diastolic murmur, rubs, gallop, clicks Neurological exam: Present: alert, oriented X3, CN II-XII intact Psychiatric exam: Present: normal affect, normal mood Skin exam: Present: warm, dry, intact, normal color. Absent: rash Course Vital Signs 06/02/23 06/02/23 10:45 14:44 Temperature 98.0 F 98.1 F Pulse Rate 90 71 Respiratory 18 18 Rate Blood Pressure 144/86 116/68 O2 Sat by Pulse 98 96 Oximetry Medical Decision Making - Medical Decision Making This is a 57 year old female who presents to the emergency department for neck pain. Was pt. sent in by a medical professional or institution? @ -No Did you speak to anyone other than the patient for history? @ -No Did you review nursing and triage notes? @ -Yes, and I agree, it is accurate with regards to the patient's symptoms. Were old charts reviewed? @ -No Differential Diagnosis? @ -Differential Neck Pain: Fracture, dislocation, contusion, strain, DDD, disc herniation, this is not meant to be an all-inclusive list. EKG interpreted by me (3pts min.)? @ -Not obtained X-rays interpreted by me (1pt min.)? @ -Not obtained CT interpreted by me (1pt min.)? @ -Computed tomography scan of the brain and c-spine obtained. My interpretation identifies no evidence of an acute intracranial hemorrhage, skull fracture, or cervical spine fracture. U/S interpreted by me (1pt. min.)? @ -Not obtained What testing was considered but not performed? (CT, X-rays, U/S, labs)? Why? @ -None What meds were considered but not given? Why? @ -None Did you discuss the management of the patient with other professionals? @ -No Did you reconcile home meds? @ -No Was smoking cessation discussed for >3mins.? @ -I discussed smoking cessation for greater than 3 minutes. The risk of smoking were discussed with the patient including but not limited to risks of cancer, stroke, coronary artery disease and COPD. Also discussed with patient were multiple methods of quitting smoking. Lastly we discussed the financial cost of smoking. Was critical care preformed (if so, how long)? @ -No Were there social determinants of health that impacted care today? How? (Homelessness, low income, unemployed, alcoholism, drug addiction, transportation, low edu. Level, literacy, decrease access to med. care, residential, rehab)? @ -No Was there de-escalation of care discussed even if they declined? (Discuss DNR or withdrawal of care, Hospice)? @ -No What co-morbidities impacted this encounter? (DM, HTN, Smoking, COPD, CAD, Cancer, CVA, Hep., AIDS, mental health diagnosis, sleep apnea, morbid obesity)? @ -DDD, back surgery Was patient admitted / discharged? @ -Discharged. Computed tomography scan of the brain and C-spine obtained revealing no acute process. COVID, influenza, and RSV testing were negative. Urinalysis negative for signs of infection. Discussed with the patient that her symptoms of the neck pain may be related to a musculoskeletal issue or cervical strain. She did have improvement with the muscle relaxant administered in the emergency department. Rx for Naproxen and Robaxin provided with dosing instructions reviewed. Also discussed warm moist heat and follow up with her PCP. Undiagnosed new problem with uncertain prognosis? @ -None Drug Therapy requiring intensive monitoring for toxicity (Heparin, Nitro, Insulin, Cardizem)? @ -None Were any procedures done? @ -None Diagnosis/symptom? @ -Cervical strain, fever Acute, or Chronic, or Acute on Chronic? @ -Acute Uncomplicated (without systemic symptoms) or Complicated (systemic symptoms)? @ -Uncomplicated Side effects of treatment? @ -None Exacerbation, Progression, or Severe Exacerbation] @ -Not applicable Poses a threat to life or bodily function? @ -No Return precautions reviewed in depth, the patient is instructed to return to the emergency department with any new, worsening, or concerning symptoms. Patient verbalized understanding. This case was discussed in detail with the attending ED physician, Dr. Vergara. Presentation, findings, and treatment plan discussed in detail as well. - Lab Data Lab Results 06/02/23 06/02/23 Range/Units 12:28 12:28 Urine Color Colorless Urine Appearance Clear (Clear) Urine pH 6.5 (5.0-8.0) Ur Specific [place] 1.008 (1.001-1.035) Urine Protein Negative (Negative) Urine Glucose (UA) Negative (Negative) Urine Ketones Negative (Negative) Urine Blood Negative (Negative) Urine Nitrite Negative (Negative) Urine Bilirubin Negative (Negative) Urine Urobilinogen <2.0 (<2.0) mg/dL Ur Leukocyte Esterase Large H (Negative) Urine RBC 1 (0-5) /hpf Urine WBC 157 H (0-5) /hpf Ur Squamous Epith Cells 1 (0-4) /hpf Urine Mucus Rare H (None) /hpf Influenza Type A (PCR) Not Detected (Not Detectd) Influenza Type B (PCR) Not Detected (Not Detectd) RSV (PCR) Not Detected (Not Detectd) SARS-CoV-2 (PCR) Not Detected (Not Detectd) - Radiology Data Radiology results: report reviewed, image reviewed Disposition Clinical Impression: Strain of neck muscle, Nicotine dependence, Fever Disposition: HOME SELF-CARE Instructions (If sedation given, give patient instructions): Cervical Strain (ED) Additional Instructions: Return to the emergency department with any new, worsening, or concerning symptoms. Take the naproxen twice daily as needed for pain relief. If you choose to take the naproxen, do not take any other anti-inflammatories such as ibuprofen, take one or the other. You may take it with Tylenol. You can apply warm moist heat as well. Follow up with your primary care provider in 1-2 days. Prescriptions: Naproxen Sodium 550 mg PO BID PRN #30 tablet PRN Reason: Pain methocarbamoL [Robaxin-750] 1,500 mg PO TID PRN #30 tab PRN Reason: Pain Is patient prescribed a controlled substance at d/c from ED?: No Referrals: Kwan Graham MD [Primary Care Provider] - 1-2 days Time of Disposition: 14:20
[2023-06-02] MEDS: ORPHENADRINE 30 MG/ML 2 ML VIAL IM STA (12:34)
[2023-06-02] MEDS: HYDROcodone/APAP 5-325MG 1 EACH TAB PO STA (12:36)
[2023-06-02] MEDS: IBUPROFEN 600 MG TAB PO STA (12:37)
[2023-06-02 13:12] LABS: Appearance,Urine Clear (Clear); Bilirubin,Urine Negative (Negative); Blood,Urine Negative (Negative); Color,Urine Colorless; Glucose,Urine (UA) Negative (Negative); Ketones,Urine Negative (Negative); Leukocyte Esterase,Urine Large (Negative); Mucus,Urine Rare /hpf; Nitrite,Urine Negative (Negative); PH, Urine 6.5 (5.0-8.0); Protein,Urine Negative (Negative); RBC,Urine 1 /hpf (0-5); Specific Gravity,Urine 1.008 (1.001-1.035); Squamous Epithelial Cell,Urine 1 /hpf (0-4); Urobilinogen,Urine <2.0 mg/dL (<2.0); WBC,Urine 157 /hpf (0-5)
--- NOTE | 2023-06-02 13:39 | CT ---
EXAMINATION TYPE: CT brain cspine wo con CT DLP: 1342.7 mGycm, Automated exposure control for dose reduction was used. DATE OF EXAM: 06/02/2023 1:17 PM COMPARISON: 09/16/2020. CLINICAL INDICATION:Female, 57 years old with history of Headache/neck pain after fall; Head and neck pain ater fall TECHNIQUE: Brain: Multiple axial CT images of the brain were obtained without IV contrast. Cspine: Axial CT images from the skull base to the inferior aspect of T2 we obtained without intraven ous contrast. Coronal and sagittal reformatted images were also reviewed. FINDINGS: Brain: Extra-axial spaces: No abnormal extra-axial fluid collections. Ventricular system: Within normal limits Cerebral parenchyma: No acute intraparenchymal hemorrhage or mass effect. The monae-white junction is well differentiated. Cerebellum: Unremarkable. Mass effect: No evidence of midline shift. Intracranial vasculature: Atherosclerotic calcifications of the intracranial vessels. Soft tissues: Normal. Calvarium/osseous structures: No depressed skull fracture. Paranasal sinuses and mastoid air cells: Clear. Visualized orbits: Orbital contents are intact. Cervical spine: Fracture: None. Osseous structures: Postsurgical changes spine with hardware in place. Hardware appears intact on bot h anterior and posterior aspects. Multilevel degenerative disc disease changes with endplate spurring and disc osteophyte complex's. Severe degeneration changes at the inferior margin of the anterior fi xation hardware. Vertebral alignment: Within normal limits. Spinal canal/Neural Foramina: No evidence of significant spinal canal narrowing. No evidence for sign ificant neural foraminal stenosis. Neck soft tissues: Prevertebral soft tissues are within normal limits. Other: The airway is patent. 3 mm left upper lung pulmonary nodule. IMPRESSION: 1. No acute intracranial process. 2. Nonspecific white matter changes, likely secondary to chronic small vessel ischemic disease. 3. No evidence of cervical spine fracture. 4. Moderate to severe multilevel degenerative disc disease but to be partially due to fixation hardw are changes and altered mechanics of the spine.
[2023-06-02] MEDS: traMADol 50 MG STARTER PACK 3 TAB BTL PO STA (14:43)
[2023-06-02 15:07] VITALS: BP 116/68; PULSE 71; TEMP 98.1
== END 2023-06-02 14:47 | disposition home or self-care (01) ==
LOC: EC 10:44
DX: S16.1XXA Strain of muscle, fascia and tendon at neck level, initial encounter (principal); F17.200 Nicotine dependence, unspecified, uncomplicated; R50.9 Fever, unspecified; K21.9 Gastro-esophageal reflux disease without esophagitis; I10 Essential (primary) hypertension; G47.30 Sleep apnea, unspecified; E07.9 Disorder of thyroid, unspecified; F41.9 Anxiety disorder, unspecified; F32.A Depression, unspecified; F12.90 Cannabis use, unspecified, uncomplicated; Z79.890 Hormone replacement therapy; Z79.899 Other long term (current) drug therapy; Z91.040 Latex allergy status; Z91.030 Bee allergy status; Z88.8 Allergy status to other drugs, medicaments and biological substances; Z20.822 Contact with and (suspected) exposure to COVID-19; W01.0XXA Fall on same level from slipping, tripping and stumbling without subsequent striking against object, initial encounter
CPT/HCPCS: 81001; 87086; 87636; 72125; 70450; 99284; 96372; J2360

== ENCOUNTER 2024-07-25 10:35 | Day surgery (SDC) | payer MEDICARE ==
[~2024-07-25 10:35] MED LIST changes: -BUPIVACAINE (PF) 0.25% 30 ML VIAL MISCELLANE ONE; -DEXAMETHASONE SOD PHOSPHATE 10 MG/ML 1 ML VIAL IV ONE; -GLYCOPYRROLATE 0.2 MG/ML 2 ML VIAL ONE; -HYDROmorphone 0.5 MG/0.5 ML SYRINGE IVP PRN; -KETOROLAC 30 MG/ML 1 ML VIAL IVP SCH; -LACTATED RINGERS 1,000 ML IV ONE; -LIDOCAINE 1% 20 ML VIAL (10MG/ML) FOR IV START INTRADERMA ONE; -LIDOCAINE 1% 20 ML VIAL (10MG/ML) FOR IV START INTRADERMA PRN; -LIDOCAINE 2%-EPI 1:100,000 20 ML VIAL SUBMUCOSAL ONE; -METOCLOPRAMIDE 5 MG/ML 2 ML VIAL IVP PRN; -MIDAZOLAM 2 MG/2 ML VIAL IV PRN; -MIDAZOLAM 2 MG/2 ML VIAL ONE; -NEOSTIGMINE 1 MG/ML 10 ML VIAL ONE; -ONDANSETRON 4 MG/2 ML VIAL IVP ONE; -PROPOFOL 10 MG/ML 20 ML VIAL IV ONE; -TERBINAFINE 1% CREAM 15 GM TUBE TOPICAL ONE; -ePHEDrine SULFATE/0.9% NACL/PF 50 MG/5 ML SYRINGE IV ONE; -fentaNYL (PF) 50 MCG/ML 2 ML AMP ONE
[2024-07-25 11:09] VITALS: RESP 16; TEMP 98.1
[2024-07-25 11:16] LABS: Glucose,Whole Blood 115 mg/dL (70-110)
[2024-07-25] MEDS: LACTATED RINGERS 1,000 ML IV ONE (11:17)
[2024-07-25] MEDS ORDERED: PROPOFOL 10 MG/ML 20 ML VIAL IV ONE (12:08)
--- NOTE | 2024-07-25 12:24 | P.PCN ---
Date of Procedure: 07/25/24 Procedure(s) Performed: BRIEF HISTORY: Patient is a 58-year-old pleasant white female scheduled for an elective colonoscopy as a part of screening for colon cancer/positive Cologuard PROCEDURE PERFORMED: Colonoscopy. PREOPERATIVE DIAGNOSIS: Screening for colon cancer/positive Cologuard:. IV sedation per Anesthesia. PROCEDURE: After informed consent was obtained, the patient, was brought into the endoscopy unit. IV sedation was administered by Anesthesia under continuous monitoring. Digital rectal examination was normal. Initially the Olympus CF-160 flexible video colonoscope was then inserted in the rectum, gradually advanced into the cecum without any difficulty. Careful examination was performed as the scope was gradually being withdrawn. Ileocecal valve and the appendiceal orifice were visualized and appeared normal. Prep was excellent. Mucosa of the cecum, ascending colon, transverse colon, descending colon, sigmoid colon, and rectum appeared normal. Retroflexion was performed in the rectum and no lesions were seen. The patient tolerated the procedure well. IMPRESSION: Normal-appearing colon from rectum to cecum with no evidence of colitis or colorectal neoplasia RECOMMENDATIONS: Findings of this examination were discussed with the patient as well as her family.. She was advised to have repeat screening colonoscopy in 10 years
[2024-07-25 12:47] VITALS: BP 103/70; PULSE 70
== END 2024-07-25 13:04 | disposition home or self-care (01) ==
LOC: ORWHC2ENDO 10:35
PROVIDERS: ATTEND Internal Medicine Gastroenterology
DX: R19.5 Other fecal abnormalities (principal)
CPT/HCPCS: 45378; J2704